=== PATIENT | female | born 1960 | race Caucasian/White ===

== ENCOUNTER → 2019-11-05 13:01 | Outpatient (CLI) | payer OTHER, SELFPAY ==
--- NOTE | 2019-11-05 13:05 | DI.MRI.S_ITS ---
PROCEDURE: MR LUMBAR SPINE WO CON INDICATIONS: low back pain worse TECHNIQUE: Noncontrast sagittal T1 spin echo and T2 fast echo, sagittal STIR, axial T1 and T2 fast spin echo through the lumbar spine. In cases with scoliosis, additional coronal T2 fast spin echo may be performed. COMPARISON: [facility], CR, XR LUMBAR SPINE MIN 4V, 11/05/2019, 13:37. [facility], CR, L-SPINE 2-3 VIEWS, 12/17/2017, 10:51. FINDINGS: Image quality: Excellent. Alignment and Curvature: There is transitional anatomy with 6 non-rib bearing vertebrae. There is normal bony alignment. Bone Marrow: Marrow is of normal overall signal. No acute vertebral body compression fractures. Spinal Cord: Conus medullaris terminates at the T12-L1 level. The 6th lumbar type vertebra is referred to as the umbilicus S1 in this report. Visualized cord demonstrates normal signal and size. Paraspinous Soft Tissues: No paravertebral masses. L1-L2: Normal appearance. L2-L3: Moderate loss of disc height and disc desiccation. There is diffuse posterior disc bulge. A small posterior central annular fissure is present. Mild bilateral facet arthropathy and hypertrophy of ligamentum flavum. The central canal is mildly narrowed. Mild bilateral foraminal stenosis. L3-L4: Preserved disc height and disc signal. There is mild posterior disc bulge and a small posterior central annular fissure. Mild bilateral facet arthropathy and hypertrophy of ligamentum flavum. The central canal is patent. No foraminal stenosis. L4-L5: Preserved disc height and disc signal. There is mild posterior disc bulge. Moderate bilateral facet arthropathy and hypertrophy of ligamentum flavum. The central canal is gtgc-cy-fyrhapvwdh narrowed. Mild bilateral foraminal stenosis. L5-S1: Preserved disc height and disc signal. There is posterior disc bulge and left posterior lateral disc protrusion. Mild bilateral facet arthropathy and hypertrophy of ligamentum flavum. Moderate narrowing of the left lateral recess. The central canal is qsde-dh-qxcyfwqocd narrowed. Mild bilateral foraminal stenosis. S1-S2: Prominent S1-S2 disc with disc desiccation. Epidural lipomatosis.No central canal stenosis or foraminal stenosis. IMPRESSION: 1. Multilevel degenerative disc disease and facet arthropathy as described. 2. Mild to moderate central canal stenosis L4-L5. 3. Mild foraminal stenosis at multiple levels. 4. 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 The most inferior lumbar vertebra is referred as sacralized S1 in this report. Please confirm vertebral levels prior to any surgery or interventional procedures. Dictated by: Russell Reyes M.D. on 11/05/2019 at 14:38 Approved by: Russell Reyes M.D. on 11/05/2019 at 17:08
--- NOTE | 2019-11-05 13:05 | DI.RAD.S_ITS ---
PROCEDURE: XR LUMBAR SPINE MIN 4V INDICATIONS: low back pain TECHNIQUE: 5 views of the lumbar spine were acquired. COMPARISON: X-ray, [place] spine, 12/17/2017. FINDINGS: Bones: 6 nonrib-bearing vertebrae are present. The most inferior lumbar type vertebra is referred as lumbarized transitional S1. There is normal bony alignment. No vertebral body compression fractures. No suspicious bony lesions. There is moderate degenerative disc disease at L2-L3 and mild degenerative disc disease at other levels. Moderate to severe facet arthropathy at L5-L5 and L5-S1. Soft tissues: Overlying bowel gas pattern is normal. No suspicious soft tissue calcifications. Oblique images: No pars defects. IMPRESSION: 1. Transitional anatomy with 6 wze-ddy-iurozjl lumbar vertebrae. 2. Degenerative disc and facet disease. Dictated by: Russell Reyes M.D. on 11/05/2019 at 16:56 Approved by: Russell Reyes M.D. on 11/05/2019 at 16:59
== END ==
PROVIDERS: PCP Nurse Practitioner Family; Visit Provider Nurse Practitioner Family
DX: M51.17 Intervertebral disc disorders with radiculopathy, lumbosacral region (principal); M51.16 Intervertebral disc disorders with radiculopathy, lumbar region; M48.07 Spinal stenosis, lumbosacral region; M48.061 Spinal stenosis, lumbar region without neurogenic claudication; M47.27 Other spondylosis with radiculopathy, lumbosacral region; M47.26 Other spondylosis with radiculopathy, lumbar region
CPT/HCPCS: 72110; 72148

== ENCOUNTER 2020-01-25 12:38 | Outpatient (CLI) | payer OTHER, SELFPAY ==
[2020-01-25] VITALS (9 sets, daily range): BP systolic 109–136; BP diastolic 52–81; PULSE 64–81; RESP 16; TEMP 36; O2SAT 98–100
--- NOTE | 2020-01-25 12:39 | DI.RAD.S_ITS ---
PROCEDURE: PAIN L/S TRANSFORAMINAL INJECT INDICATIONS: INTERVERTEBRAL DISC DISPLACEMENT FINDINGS: Fluoroscopic spot filming was performed to verify placement of spinal needles at the L4-L5 level(s), as labeled on the films. Appropriate location(s) of the needle tip(s) was confirmed by injection of iodinated contrast. Dictated by: John Houston M.D. on 01/25/2020 at 16:00 Approved by: John Houston M.D. on 01/25/2020 at 16:00
[2020-01-25] MEDS: MIDAZOLAM 5 MG/5 ML VIAL IV (13:48)
[2020-01-25] MEDS: fentaNYL 100 MCG/2 ML INJ 50 MCG IV (13:48)
[2020-01-25] MEDS: BUPIVACAINE 0.25% (PF) VIAL 2 ML INJ (13:55)
[2020-01-25] MEDS: BETAMETHASONE 30 MG/5 ML MDV 6 MG INJ (13:56)
[2020-01-25] MEDS: IOPAMIDOL 15 ML VIAL 3 ML INJ (13:56)
[2020-01-25] MEDS: DEXAMETHASONE 10 MG/ML VIAL 20 MG INJ (13:56)
--- NOTE | 2020-01-25 14:01 | P.PCN_ITS ---
Procedures Date/Time Date of procedure: 01/25/20 Time of procedure: 14:01 General Procedure description: PREOP DIAGNOSIS 1. FORMAINAL STENOSIS WITH LE SYMPTOMS POST OP DIAGNOSIS 1. FORMAINAL STENOSIS WITH LE SYMPTOMS PROCEDURES 1. FLUOROSCOPICALLY GUIDED CONTRAST CONTROLLED TRANSFORAMINAL EPIDURAL STEROID INJECTION - LEFT L4/5 PHYSICIAN: Bruce Mckeon DO INDICATIONS: Isabelle is referred by DAJUAN Nuñez for treatment of Foraminal Stenosis with Left LE Symptoms FINDINGS Foraminal Nerve Root Compression secondary to disc disease and facet hypertrophy DESCRIPTION OF PROCEDURE: Following review of allergy and review of potential side effects and complications, including, but not necessarily limited to, infection, allergic reaction, local tissue breakdown, stroke, temporary or permanent nerve injury, paralysis, and possible , the patient indicated that the patient understood and agreed to proceed. An informed consent document was signed by the patient, witnessed by a nurse, and placed in the patient's chart. Additionally, other treatment options including medications, modalities, and physical therapy were reviewed with the patient. After review of previous anaesthesic history and IV conscious sedation the patient was deemed safe to proceed with todays procedure with IV conscious sedation as ASA class II designation. Safety time-out was performed to confirm patient ID, procedure to be performed and site of procedure. IV sedation was accomplished with a combination of 2mg of Versed and 50mcg of Fentanyl administered by the RN after DO order, titrated to patient comfort during the course of the procedure while the patient remained responsive to all verbal commands In the prone position following sterile prep and drape of the lumbar region, the left L4/5 posterior neuroforamen was identified fluoroscopically. The skin was anesthetized via a 25-gauge 1.5-inch needle with 1% lidocaine solution. At this point, a 25-gauge 3.5-inch spinal needle was atraumatically introduced and advanced under fluoroscopic guidance through the posterior left L4/5 neuroforamen to approximately the anterior aspect of the canal. Depth was confirmed on lateral view. Following negative aspiration, injection of approximately 1.5 cc of Isovue 200 under live fluoroscopy in the AP view confirmed excellent flow along the nerve root, into the epidural space without vascular or intrathecal uptake observed Radiological data, including multiple fluoroscopic views of the lumbosacral spine, reveal a spinal needle at the left L4/5 posterior neuroforamen. Subsequent views show flow of contrast material flowing superiorly and inferiorly along the nerve root confirming epidural flow. Subsequently, a test dose of 1.5 cc of 1% lidocaine solution was administered and patient was observed for two minutes for signs or symptoms of complications, including abdominal pain, shortness of breath, bilateral upper or lower extremity weakness, nausea and vomiting, prior to steroid injection. At this point, a total of 3cc or 20mg of dexamethasone and 6mg of betamethasone was injected without incident. The procedure tolerated the procedure well without signs or symptoms of complications prior to transfer to the recovery area continued monitoring without incident. The patient was then transferred to the recovery area where they were observed for an appropriate time after the injection. The patient reported a VAS score of 7 prior to the procedure and a post- procedure VAS of 0. Total Fluoroscopy Time: 8 seconds Total Conscious Sedation Time: 24min POST OP INSTRUCTIONS The patient was provided a Pain Log to continue to record their response to the target-specific procedure prior to follow-up visit with their referring physician. Additionally, specific post-injection care instructions and a contact number to our office were provided if concerns arise regarding possible complications associated with the procedure are suspected. Bruce Mckeon DO Complications: none
--- NOTE | 2020-01-25 14:07 | PC.NURSE ---
1408: Received patient post procedure by Maggy WOODY, assisted from WC to chair. Awake, alert, and pleasant. VSS upon arrival.
--- NOTE | 2020-01-26 12:03 | PC.NURSE ---
FOLLOW UP CALL MADE. PT C/O HEADACHE LATE LAST NIGHT THAT GOT WORSE UPON LYING DOWN AND GETS BETTER WHEN SHE STANDS UP. LET PT KNOW I WILL PASS SIDE EFFECT EXPERIENCE ON TO DR REYES. SHE DENIES OTHER QUESTIONS CONCERNS.
== END 2020-01-25 14:25 | disposition home or self-care (01) ==
PROVIDERS: PCP Nurse Practitioner Family; Referring Provider Physical Medicine & Rehabilitation; Visit Provider Physical Medicine & Rehabilitation
DX: M48.061 Spinal stenosis, lumbar region without neurogenic claudication (principal); M51.16 Intervertebral disc disorders with radiculopathy, lumbar region
CPT/HCPCS: 64483; 99152; J0702; J1100; J2250; J3010

== ENCOUNTER → 2021-01-13 08:32 | Outpatient (CLI) | payer OTHER, SELFPAY ==
[2021-01-13 09:15] LABS: Hematocrit 47.6 % (36-46); Hemoglobin 15.7 g/dL (12.0-16.0); Mean Corpuscular Hemoglobin 30.1 PG (26-34); Mean Corpuscular Volume 91.2 fL (80-100); Platelet Count 313 X10^3/uL (150-400); Red Blood Cell Count 5.22 X10^6/uL (4.0-5.2); White Blood Cell Count 6.1 X10^3/uL (4.5-11.0)
[2021-01-13 09:36] LABS: Hemoglobin A1C% w Est Avg Glu 5.4 % (4.0-6.0)
[2021-01-13 09:41] LABS: Alanine Aminotransferase 21 IU/L (<35); Albumin 4.1 g/dL (3.5-5.0); Albumin Globulin Ratio 1.3 (1.0-2.8); Alkaline Phosphatase 94 U/L (38-126); Aspartate Aminotransferase 27 IU/L (14-36); BUN Creatinine Ratio 26.4 (6-22); Bilirubin Total 0.4 mg/dL (0.2-1.3); Blood Urea Nitrogen 19 mg/dL (7-17); Calcium 9.6 mg/dL (8.4-10.2); Carbon Dioxide 29 mmol/L (22-32); Chloride 106 mmol/L (98-107); Cholesterol 203 mg/dL (140-199); Estimated Glomerular Filt Rate > 60.0 mL/min (>60); Globulin 3.1 g/dL (1.7-4.1); Glucose 93 mg/dL (80-110); HDL Cholesterol 57 mg/dL (40-60); HEMOLYSIS < 15 (0-50); LDL Cholesterol Calculated 128 mg/dL (<100); Magnesium 2.1 mg/dL (1.6-2.3); Potassium 3.9 mmol/L (3.4-5.1); Sodium 139 mmol/L (137-145); Total Protein 7.2 g/dL (6.3-8.2); Triglycerides 92 mg/dL (35-150)
[2021-01-13 09:58] LABS: Free T4, Direct Thyroxine 1.08 ng/dL (0.78-2.19)
[2021-01-13 09:59] LABS: Vitamin D 25 Hydroxy (D3) 37.7 ng/mL (30.0-100.0)
[2021-01-13 10:12] LABS: Thyroid Stimulating Hormone 2.18 uIU/mL (0.47-4.68)
== END ==
PROVIDERS: PCP Nurse Practitioner Family; Referring Provider Nurse Practitioner Family; Visit Provider Nurse Practitioner Family
DX: E03.8 Other specified hypothyroidism (principal); E11.9 Type 2 diabetes mellitus without complications; R53.83 Other fatigue; E03.9 Hypothyroidism, unspecified; E55.9 Vitamin D deficiency, unspecified; E06.3 Autoimmune thyroiditis
CPT/HCPCS: 36415; 80053; 80061; 82306; 83036; 83735; 84439; 84443; 85027

== ENCOUNTER 2021-10-29 04:47 | Inpatient (IN) | payer OTHER, SELFPAY ==
[2021-10-29] VITALS (15 sets, daily range): BP systolic 109–155; BP diastolic 58–77; PULSE 67–103; RESP 16–18; TEMP 36.1–37.3; O2SAT 92–98
--- NOTE | 2021-10-29 05:07 | ED_ITS ---
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 She states for the past year she has been having episodes of diarrhea that are profuse watery diarrhea with food rapidly transiting sometimes with in 30 min utes of eating. This has been intermittently problematic over the last year with occasional blood noted in the stool. She does note that she is ?a celiac?, she has not had a recent colonoscopy. Over the last 3 days she has had increasing lower abdominal pain. Both lower quadrants not associated with flank pain, dysuria or vaginal discharge. She has no fevers, cough, chest pain, dyspnea. She describes painful bowel movements but stool that is soft but formed. She states that it is difficult to stand up straight because of the significant lower abdominal pain. Related Data Home Medications Medication Instructions Recorded Confirmed [probiotic] #0 08/20/17 01/12/21 cholecalciferol (vitamin D3) 50 2,000 unit PO DAILY #0 08/20/17 10/29/21 mcg (2,000 unit) capsule (Vitamin D3) multivitamin (Multiple Vitamins) 1 tab PO QDAY #0 08/20/17 10/29/21 selenomethionine 200 mcg tablet 200 mcg PO PRN #0 09/25/19 01/12/21 vitamin K2 100 mcg capsule 100 mcg PO DAILY 01/12/21 10/29/21 doxycycline monohydrate 40 mg 40 mg PO DAILY 10/29/21 10/29/21 capsule,immediate - delay release (Oracea) Previous Rx's Medication Instructions Recorded celecoxib 200 mg capsule See Rx Instructions .ROUTE 09/06/21 .COMPLEX #30 cap Allergies Allergy/AdvReac Type Severity Reaction Status Date / Time ciprofloxacin [CIPROFLOXACIN] Allergy Unknown Verified 10/29/21 05:00 levofloxacin [From LEVAQUIN] Allergy Unknown Verified 10/29/21 05:00 Review of Systems <Yina Conklin MD - Last Filed: 10/29/21 18:04> Review of Systems Narrative: Remainder of complete review of systems is otherwise unremarkable except for that included in the HPI. Patient History <Yina Conklin MD - Last Filed: 10/29/21 18:04> Medical History Anhidrosis BMI 31.0-31.9,adult Chronic fatigue Mikayla-Read infection Facet arthropathy, lumbar Fatigue Mihaela's disease Hemorrhoids Herniated nucleus pulposus, L4-5 Raynaud phenomenon Reactive hypoglycemia Vitamin D deficiency Surgical History Status post cholecystectomy Status post parathyroidectomy Family History Brother Age: 67 Arthritis of knee Essential hypertension High cholesterol Father Stomach cancer Heart disease Essential hypertension High cholesterol Kidney problem Grandfather Heart disease Essential hypertension Stroke Mother Heart disease Essential hypertension High cholesterol Grandfather Heart disease Essential hypertension Grandmother Heart disease Essential hypertension Stroke Social History household members: spouse Smoking Status: Never smoker alcohol intake: never Smoking Status: Never smoker Substance Use Type: does not use Exam <Yina Conklin MD - Last Filed: 10/29/21 18:04> Narrative Exam Narrative: General: Healthy appearing, in no acute distress. Able to give a complete and coherent history. Well-nourished well-developed HEENT: Moist mucous membranes, normal sclera with reactive pupils, Neck: No JVD, supple Respiratory: Lungs are clear to auscultation, no wheezing no rales no rhonchi. Full and symmetrical air movement Cardiac: Regular rate and rhythm no murmurs no bruits Abdomen: Soft, tender in lower quadrants with guarding, hypoactive bowel tones Skin: Warm and dry, no rashes Neurologic: Grossly neurologically intact with no obvious asymmetries or abnormalities Extremities: No trauma, well perfused Psych: Cooperative, appropriate insight and affect Initial Vital Signs Initial Vital Signs: Vital Signs Pulse Rate 102 H 10/29/21 05:00 Respiratory Rate 18 12/12/21 05:00 Blood Pressure 118/65 10/29/21 05:00 Pulse Oximetry 94 10/29/21 05:00 <Bruce Gray MD - Last Filed: 10/29/21 09:42> Initial Vital Signs Initial Vital Signs: Vital Signs Pulse Rate 102 H 10/29/21 05:00 Respiratory Rate 18 10/29/21 05:00 Blood Pressure 118/65 10/29/21 05:00 Pulse Oximetry 94 10/29/21 05:00 Course <Yina Conklin MD - Last Filed: 10/29/21 18:04> Orders Ordered: Acetaminophen (Acetaminophen 325 Mg Tablet) 650 mg PO Q6HR [facility] Last Admin: 10/29/21 11:42 Dose: 650 mg Documented by: MEHUL Dextrose (Dextrose 50 % In Water 25 Gm/50 Ml Syringe) 25 gm IV PRN PRN; Protocol PRN Reason: Hypoglycemia Docusate Sodium (Docusate 100 Mg Capsule) 100 mg PO BID [facility] Last Admin: 10/29/21 11:42 Dose: 100 mg Documented by: MEHUL Enoxaparin Sodium (Enoxaparin 40 Mg/0.4 Ml Syringe) 40 mg SUBCUT DAILY [facility] Last Admin: 10/29/21 11:44 Dose: 40 mg Documented by: MEHUL Famotidine (Famotidine 20 Mg Tablet) 20 mg PO BEDTIME [facility] Hydromorphone HCl (Hydromorphone 0.5 Mg Inj) 0.5 mg IV Q3H PRN PRN Reason: Pain, Moderate (4-6) Sodium Chloride (Normal Saline 0.9%) 1,000 mls @ 250 mls/hr IV CONT [facility] Last Infusion: 10/29/21 09:49 Dose: 0 mls/hr Documented by: Admin: 10/29/21 09:30 Dose: 250 mls/hr Documented by: KBROWNE Sodium Chloride (Normal Saline 0.9%) 1,000 mls @ 100 mls/hr IV CONT [facility] Last Admin: 10/29/21 10:00 Dose: 100 mls/hr Documented by: MEHUL Piperacillin Sod/Tazobactam (Sod 3.375 gm/ Sodium Chloride) 100 mls @ 25 mls/hr IV Q8H [facility] Last Admin: 10/29/21 11:44 Dose: 25 mls/hr Documented by: MEHUL Ibuprofen (Ibuprofen 600 Mg Tablet) 600 mg PO Q6HR [facility] Last Admin: 10/29/21 11:42 Dose: 600 mg Documented by: MEHUL Insulin Human Lispro (Insulin Lispro 100 Unit/Ml 3ml Vial) 0 unit SUBCUT Q6H [facility]; Protocol Last Admin: 10/29/21 14:19 Dose: Not Given Documented by: Admin: 10/29/21 10:59 Dose: Not Given Documented by: MEHUL Morphine Sulfate (Morphine 2 Mg/Ml Inj) 2 mg IV Q4HR PRN PRN Reason: Pain, Moderate (4-6) Multivitamins (Multivitamin 1 Tablet) 1 tab PO DAILY [facility] Last Admin: 10/29/21 11:42 Dose: 1 tab Documented by: MEHUL Naloxone HCl (Naloxone 0.4 Mg/Ml Vial) 0.2 mg IV Q2MIN PRN PRN Reason: Opiate Reversal Ondansetron HCl (Ondansetron 4 Mg/2 Ml Inj) 4 mg IV Q6HR PRN PRN Reason: Nausea And Vomiting Oxycodone HCl (Oxycodone Ir 5 Mg Tablet) 5 mg PO Q3HR PRN PRN Reason: Pain, Moderate (4-6) Discontinued Medications Enoxaparin Sodium (Enoxaparin 30 Mg/0.3 Ml Syringe) 30 mg SUBCUT DAILY [facility] Last Admin: 10/29/21 10:58 Dose: Not Given Documented by: MEHUL Hydromorphone HCl (Hydromorphone 0.5 Mg Inj) 0.5 mg IV Q15MIN PRN PRN Reason: Pain, Last Admin: 10/29/21 09:28 Dose: 0.5 mg Documented by: Admin: 10/29/21 05:29 Dose: 0.5 mg Documented by: YONI Sodium Chloride (Normal Saline 0.9%) 1,000 mls @ 1,000 mls/hr IV BOLUS ONE Stop: 10/29/21 06:14 Last Infusion: 10/29/21 06:34 Dose: 0 mls/hr Documented by: Admin: 10/29/21 05:29 Dose: 1,000 mls/hr Documented by: YONI Piperacillin Sod/Tazobactam (Sod 4.5 gm/ Sodium Chloride) 100 mls @ 200 mls/hr IV NOW ONE Stop: 10/29/21 06:09 Last Infusion: 10/29/21 08:09 Dose: 0 mls/hr Documented by: Admin: 10/29/21 06:43 Dose: 200 mls/hr Documented by: YONI Piperacillin Sod/Tazobactam (Sod 4.5 gm/ Sodium Chloride) 100 mls @ 25 mls/hr IV Q8H [facility] Last Admin: 10/29/21 10:58 Dose: Not Given Documented by: MEHUL Piperacillin Sod/Tazobactam (Sod 3.375 gm/ Sodium Chloride) 100 mls @ 25 mls/hr IV Q8H [facility] Last Admin: 10/29/21 10:58 Dose: Not Given Documented by: MEHUL Ondansetron HCl (Ondansetron 4 Mg/2 Ml Inj) 4 mg IV NOW ONE Stop: 10/29/21 05:16 Last Admin: 10/29/21 05:29 Dose: 4 mg Documented by: YONI Ondansetron HCl (Ondansetron 4 Mg/2 Ml Inj) 4 mg IV Q6HR [facility] Zinc Sulfate (Zinc Sulfate 220 Mg Capsule) 50 mg PO DAILY [facility] Vital Signs Vital signs: Vital Signs - 8 hr 10/29/21 05:00 10/29/21 06:05 10/29/21 06:06 Pulse Rate 102 H 95 H 93 H Respiratory Rate 18 Blood Pressure 118/65 117/61 Pulse Oximetry 94 92 93 10/29/21 06:30 Pulse Rate 93 H Respiratory Rate Blood Pressure 120/67 Pulse Oximetry 95 <Bruce Gray MD - Last Filed: 10/29/21 09:42> Course Course Narrative: Care was transitioned from Dr. Conklin at change of shift. The patient has a prior history of diverticulitis, the initial episode was approximately 10 years ago. She has had recurring GI discomfort, but no obvious significant exacerbations of diverticulitis until now. pain has significantly increased abdominal pain over the last 3 days. Over this time she has consumed sips of soup, but oral intake is greatly diminished. She has not been having bowel movements. She presents now with a very tender lower abdomen. CT report is now available, confirming diverticulitis with perforation. She is receiving IV fluids. She is receiving Zosyn. While lying still she has no pain, but on exam she has tenderness with guarding and rebound across the lower abdomen. She has no bowel sounds. She has not been having fever or chills. She has no cardio respiratory complaints. COVID-19 testing is negative. I discussed the case with surgery, Dr. Fletcher. The patient will be admitted to her service. Tien GALINDO 10/29/21@0750. Orders Ordered: Acetaminophen (Acetaminophen 325 Mg Tablet) 650 mg PO Q6HR [facility] Last Admin: 10/29/21 11:42 Dose: 650 mg Documented by: MEHUL Dextrose (Dextrose 50 % In Water 25 Gm/50 Ml Syringe) 25 gm IV PRN PRN; Protocol PRN Reason: Hypoglycemia Docusate Sodium (Docusate 100 Mg Capsule) 100 mg PO BID [facility] Last Admin: 10/29/21 11:42 Dose: 100 mg Documented by: MEHUL Enoxaparin Sodium (Enoxaparin 40 Mg/0.4 Ml Syringe) 40 mg SUBCUT DAILY [facility] Last Admin: 10/29/21 11:44 Dose: 40 mg Documented by: MEHUL Famotidine (Famotidine 20 Mg Tablet) 20 mg PO BEDTIME [facility] Hydromorphone HCl (Hydromorphone 0.5 Mg Inj) 0.5 mg IV Q3H PRN PRN Reason: Pain, Moderate (4-6) Sodium Chloride (Normal Saline 0.9%) 1,000 mls @ 250 mls/hr IV CONT [facility] Last Infusion: 10/29/21 09:49 Dose: 0 mls/hr Documented by: Admin: 10/29/21 09:30 Dose: 250 mls/hr Documented by: KBRPAT Sodium Chloride (Normal Saline 0.9%) 1,000 mls @ 100 mls/hr IV CONT [facility] Last Admin: 10/29/21 10:00 Dose: 100 mls/hr Documented by: MEHUL Piperacillin Sod/Tazobactam (Sod 3.375 gm/ Sodium Chloride) 100 mls @ 25 mls/hr IV Q8H [facility] Last Admin: 10/29/21 11:44 Dose: 25 mls/hr Documented by: MEHUL Ibuprofen (Ibuprofen 600 Mg Tablet) 600 mg PO Q6HR [facility] Last Admin: 10/29/21 11:42 Dose: 600 mg Documented by: MEHUL Insulin Human Lispro (Insulin Lispro 100 Unit/Ml 3ml Vial) 0 unit SUBCUT Q6H [facility]; Protocol Last Admin: 10/29/21 14:19 Dose: Not Given Documented by: Admin: 10/29/21 10:59 Dose: Not Given Documented by: MEHUL Morphine Sulfate (Morphine 2 Mg/Ml Inj) 2 mg IV Q4HR PRN PRN Reason: Pain, Moderate (4-6) Multivitamins (Multivitamin 1 Tablet) 1 tab PO DAILY [facility] Last Admin: 10/29/21 11:42 Dose: 1 tab Documented by: MEHUL Naloxone HCl (Naloxone 0.4 Mg/Ml Vial) 0.2 mg IV Q2MIN PRN PRN Reason: Opiate Reversal Ondansetron HCl (Ondansetron 4 Mg/2 Ml Inj) 4 mg IV Q6HR PRN PRN Reason: Nausea And Vomiting Oxycodone HCl (Oxycodone Ir 5 Mg Tablet) 5 mg PO Q3HR PRN PRN Reason: Pain, Moderate (4-6) Discontinued Medications Enoxaparin Sodium (Enoxaparin 30 Mg/0.3 Ml Syringe) 30 mg SUBCUT DAILY [facility] Last Admin: 10/29/21 10:58 Dose: Not Given Documented by: MEHUL Hydromorphone HCl (Hydromorphone 0.5 Mg Inj) 0.5 mg IV Q15MIN PRN PRN Reason: Pain, Last Admin: 10/29/21 09:28 Dose: 0.5 mg Documented by: Admin: 10/29/21 05:29 Dose: 0.5 mg Documented by: YONI Sodium Chloride (Normal Saline 0.9%) 1,000 mls @ 1,000 mls/hr IV BOLUS ONE Stop: 10/29/21 06:14 Last Infusion: 10/29/21 06:34 Dose: 0 mls/hr Documented by: Admin: 10/29/21 05:29 Dose: 1,000 mls/hr Documented by: YONI Piperacillin Sod/Tazobactam (Sod 4.5 gm/ Sodium Chloride) 100 mls @ 200 mls/hr IV NOW ONE Stop: 10/29/21 06:09 Last Infusion: 10/29/21 08:09 Dose: 0 mls/hr Documented by: Admin: 10/29/21 06:43 Dose: 200 mls/hr Documented by: YONI Piperacillin Sod/Tazobactam (Sod 4.5 gm/ Sodium Chloride) 100 mls @ 25 mls/hr IV Q8H [facility] Last Admin: 10/29/21 10:58 Dose: Not Given Documented by: MEHUL Piperacillin Sod/Tazobactam (Sod 3.375 gm/ Sodium Chloride) 100 mls @ 25 mls/hr IV Q8H [facility] Last Admin: 10/29/21 10:58 Dose: Not Given Documented by: MEHUL Ondansetron HCl (Ondansetron 4 Mg/2 Ml Inj) 4 mg IV NOW ONE Stop: 10/29/21 05:16 Last Admin: 10/29/21 05:29 Dose: 4 mg Documented by: YONI Ondansetron HCl (Ondansetron 4 Mg/2 Ml Inj) 4 mg IV Q6HR [facility] Zinc Sulfate (Zinc Sulfate 220 Mg Capsule) 50 mg PO DAILY [facility] Vital Signs Vital signs: Vital Signs - 8 hr 10/29/21 05:00 10/29/21 06:05 10/29/21 06:06 Pulse Rate 102 H 95 H 93 H Respiratory Rate 18 Blood Pressure 118/65 117/61 Pulse Oximetry 94 92 93 10/29/21 06:30 Pulse Rate 93 H Respiratory Rate Blood Pressure 120/67 Pulse Oximetry 95 Medical Decision Making <Yina Conklin MD - Last Filed: 10/29/21 18:04> Lab Data Result diagrams: 10/29/21 05:15 10/29/21 05:15 Labs: Lab Results 10/29/21 10/29/21 10/29/21 Range/Units 05:15 05:15 06:40 WBC 15.8 H (4.5-11.0) X10^3/uL RBC 4.87 (4.0-5.2) X10^6/uL Hgb 14.8 (12.0-16.0) g/dL Hct 43.8 (36-46) % MCV 89.9 (80-100) fL MCH 30.3 (26-34) PG MCHC 33.7 (30-36) % RDW 14.6 (11.6-14.8) % Plt Count 267 (150-400) X10^3/uL Neut % (Auto) 90.5 H (50-75) % Lymph % (Auto) 3.3 L (25-40) % Hamilton % (Auto) 5.8 (3-14) % Eos % (Auto) 0.1 L (2-4) % Baso % (Auto) 0.3 (0-2) % Neut # (Auto) 60480 H (4646-5114) /uL Lymph # (Auto) 500 L (4514-7709) /uL Hamilton # (Auto) 900 (0-900) /uL Eos # (Auto) 0 (0-450) /uL Baso # (Auto) 0 (0-100) /uL Sodium 134 L (137-145) mmol/L Potassium 5.1 (3.4-5.1) mmol/L Chloride 104 (98-107) mmol/L Carbon Dioxide 21 L (22-32) mmol/L BUN 17 (7-17) mg/dL Creatinine 0.74 (0.52-1.04) mg/dL Estimated GFR > 60.0 (>60) mL/min BUN/Creatinine Ratio 23.0 H (6-22) Glucose 148 H (80-110) mg/dL Calcium 9.4 (8.4-10.2) mg/dL Magnesium 2.0 (1.6-2.3) mg/dL Total Bilirubin 1.6 H (0.2-1.3) mg/dL AST 48 H (14-36) IU/L ALT 30 (<35) IU/L Alkaline Phosphatase 102 (38-126) U/L Total Protein 7.5 (6.3-8.2) g/dL Albumin 4.0 (3.5-5.0) g/dL Globulin 3.5 (1.7-4.1) g/dL Albumin/Globulin Ratio 1.1 (1.0-2.8) Lipase 34 (23-300) U/L SARS-CoV-2 (PCR) Positive H (Negative) <Bruce Gray MD - Last Filed: 10/29/21 09:42> Lab Data Labs: Lab Results 10/29/21 10/29/21 10/29/21 Range/Units 05:15 05:15 06:40 WBC 15.8 H (4.5-11.0) X10^3/uL RBC 4.87 (4.0-5.2) X10^6/uL Hgb 14.8 (12.0-16.0) g/dL Hct 43.8 (36-46) % MCV 89.9 (80-100) fL MCH 30.3 (26-34) PG MCHC 33.7 (30-36) % RDW 14.6 (11.6-14.8) % Plt Count 267 (150-400) X10^3/uL Neut % (Auto) 90.5 H (50-75) % Lymph % (Auto) 3.3 L (25-40) % Hamilton % (Auto) 5.8 (3-14) % Eos % (Auto) 0.1 L (2-4) % Baso % (Auto) 0.3 (0-2) % Neut # (Auto) 90589 H (1585-2246) /uL Lymph # (Auto) 500 L (1562-7109) /uL Hamilton # (Auto) 900 (0-900) /uL Eos # (Auto) 0 (0-450) /uL Baso # (Auto) 0 (0-100) /uL Sodium 134 L (137-145) mmol/L Potassium 5.1 (3.4-5.1) mmol/L Chloride 104 (98-107) mmol/L Carbon Dioxide 21 L (22-32) mmol/L BUN 17 (7-17) mg/dL Creatinine 0.74 (0.52-1.04) mg/dL Estimated GFR > 60.0 (>60) mL/min BUN/Creatinine Ratio 23.0 H (6-22) Glucose 148 H (80-110) mg/dL Calcium 9.4 (8.4-10.2) mg/dL Magnesium 2.0 (1.6-2.3) mg/dL Total Bilirubin 1.6 H (0.2-1.3) mg/dL AST 48 H (14-36) IU/L ALT 30 (<35) IU/L Alkaline Phosphatase 102 (38-126) U/L Total Protein 7.5 (6.3-8.2) g/dL Albumin 4.0 (3.5-5.0) g/dL Globulin 3.5 (1.7-4.1) g/dL Albumin/Globulin Ratio 1.1 (1.0-2.8) Lipase 34 (23-300) U/L SARS-CoV-2 (PCR) Positive H (Negative) Imaging Data CT scan - abdomen/pelvis: Radiologist's Impression: Radiology report has been reviewed. The patient has perforated diverticulitis. <Bruce Gray MD - Last Filed: 10/29/21 09:42> Critical Care Time Critical Care Time: Yes Total Critical Care Time: 50 Attestation: Time included the patient's initial assessment with Dr. Dee. I have re- evaluated the patient. Lab in radiology data has been evaluated. Clinical management is ongoing. The white clinical findings were discussed with the patient. A consult with the admitting surgeon. 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
--- NOTE | 2021-10-29 05:16 | DI.CT.S_ITS ---
PROCEDURE: CT ABDOMEN PELVIS W CON INDICATIONS: low abdominal pain TECHNIQUE: After the administration of intravenous contrast, axial sections acquired from the lung bases to the pubic symphysis. Coronal and sagittal reformats were performed. For radiation dose reduction, the following was used: automated exposure control, adjustment of mA and/or kV according to patient size. COMPARISON: None. FINDINGS: Image quality: Excellent. Lung bases: There are 2 adjacent left lung base nodules largest of which measures 10 mm diameter. Heart: Small pericardial effusion. ABDOMEN: Liver: Unremarkable. Gallbladder: Is surgically absent Biliary ducts: Unremarkable. Pancreas: Unremarkable. Spleen: Multiple calcifications within the spleen are present. Adrenal Glands: Unremarkable. Kidneys and Ureters: Unremarkable. Stomach and Bowel: Stomach and small bowel grossly unremarkable. Moderate diffuse colonic dilatation. Moderate diffuse colonic stool. Moderate thickening of the distal sigmoid colon within the right pelvis. Moderate thickening of the rectum. Peritoneum: Moderate pneumoperitoneum, predominantly within the pelvis, surrounding the sigmoid colon. Moderate retroperitoneal free air extending superiorly into the abdomen. Ventral Wall: No hernias. Abdominal Nodes: No retroperitoneal or mesenteric adenopathy by size criteria. Vessels: Aorta and inferior vena cava are normal in size. PELVIS: Pelvic Organs: Uterine fibroids are present. Bladder: Unremarkable. Pelvic Nodes: No enlarged lymph nodes. Miscellaneous: No hernias are seen. Bones: Unremarkable. IMPRESSION: 1. Perforation of the sigmoid colon with associated intraperitoneal and retroperitoneal air. 2. Thickening of the sigmoid colon, suggestive of infection, inflammation, or neoplasm. 3. Uterine fibroids. 4. Small pericardial effusion. 5. Indeterminate left lung base nodules. 6. Concordant with preliminary interpretation. Dictated by: Delmy Seymour M.D. on 10/29/2021 at 7:26 Approved by: Delmy Seymour M.D. on 10/29/2021 at 7:30
[2021-10-29] MEDS: ONDANSETRON 4 MG/2 ML INJ IV (05:29)
[2021-10-29] MEDS: HYDROMORPHONE 0.5 MG INJ IV ×2 (05:29→09:28)
[2021-10-29] MEDS: SODIUM CHLORIDE 0.9% 1,000 ML 1000 ML IV (05:29)
[2021-10-29 05:31] LABS: Add Manual Diff / Slide Review NO; Basophils Absolute Auto 0 /uL (0-100); Basophils Percent Auto 0.3 % (0-2); Eosinophils Absolute Auto 0 /uL (0-450); Eosinophils Percent Auto 0.1 % (2-4); Hematocrit 43.8 % (36-46); Hemoglobin 14.8 g/dL (12.0-16.0); Lymphocytes Absolute Auto 500 /uL (1100-4500); Lymphocytes Percent Auto 3.3 % (25-40); Mean Corpuscular HGB Conc 33.7 % (30-36); Mean Corpuscular Hemoglobin 30.3 PG (26-34); Mean Corpuscular Volume 89.9 fL (80-100); Monocytes Absolute Auto 900 /uL (0-900); Monocytes Percent Auto 5.8 % (3-14); Neutrophils Absolute Auto 14300 /uL (1500-7000); Neutrophils Percent Auto 90.5 % (50-75); Platelet Count 267 X10^3/uL (150-400); Red Blood Cell Count 4.87 X10^6/uL (4.0-5.2); Red Cell Distribution Width 14.6 % (11.6-14.8); White Blood Cell Count 15.8 X10^3/uL (4.5-11.0)
[2021-10-29 05:35] LABS: Alanine Aminotransferase 30 IU/L (<35); Albumin Globulin Ratio 1.1 (1.0-2.8); Alkaline Phosphatase 102 U/L (38-126); Aspartate Aminotransferase 48 IU/L (14-36); Bilirubin Total 1.6 mg/dL (0.2-1.3); Blood Urea Nitrogen 17 mg/dL (7-17); Calcium 9.4 mg/dL (8.4-10.2); Carbon Dioxide 21 mmol/L (22-32); Chloride 104 mmol/L (98-107); Estimated Glomerular Filt Rate > 60.0 mL/min (>60); Globulin 3.5 g/dL (1.7-4.1); Glucose 148 mg/dL (80-110); Lipase 34 U/L (23-300); Sodium 134 mmol/L (137-145); Total Protein 7.5 g/dL (6.3-8.2)
[2021-10-29 05:36] LABS: HEMOLYSIS 165 (0-50)
[2021-10-29 05:37] LABS: Potassium 5.1 mmol/L (3.4-5.1)
[2021-10-29] MEDS: PIPERACILLIN/TAZO 4.5 GM in SODIUM CHLORIDE 0.9% 100 ML 200 ML IV (06:43)
[2021-10-29 08:05] LABS: COVID19 - ADMIT (NP swab/PCR) POSITIVE (Negative)
--- NOTE | 2021-10-29 08:08 | DI.RAD.S_ITS ---
PROCEDURE: XR CHEST 1V INDICATIONS: COVID-19 positive. TECHNIQUE: One view of the chest was acquired. COMPARISON: None. FINDINGS: Surgical changes and devices: None. Lungs and pleura: Lungs are clear. No pleural effusions or pneumothorax. Mediastinum: Mediastinal contours appear normal. Heart size is normal. Bones and chest wall: No suspicious bony lesions. Overlying soft tissues appear unremarkable. IMPRESSION: No acute process. Dictated by: Delmy Seymour M.D. on 10/29/2021 at 7:34 Approved by: Delmy Seymour M.D. on 10/29/2021 at 7:34
[2021-10-29] MEDS: SODIUM CHLORIDE 0.9% 1,000 ML 250 ML IV (09:30)
[2021-10-29] MEDS: SODIUM CHLORIDE 0.9% 1,000 ML 100 ML IV ×2 (10:00→19:49)
--- NOTE | 2021-10-29 11:24 | P.HP_ITS ---
History of Present Illness History of Present Illness Date Patient Seen: 10/29/21 Time Patient Seen: 11:25 Date of Onset of Symptoms: 10/19/21 Chief complaint: lower abdominal pain, bloody stool Narrative: Three days of abdominal pain in association with chronic intermittent abdominal pain and diarrhea. H/o diverticulitis several years ago, and recent recovery from COVID. CT scan that I reviewed personally, shows perforated diverticulitis with impressive retroparitoneal gas, no abscess identified. Pain has been lower abdominal for 3 days with progressive worsening. Left side most painful. Movement is painful, better when lying still. Intermittent diarrhea. No emesis. Acquired inability to sweat that she relates to Ciprofloxin and Flagyl. No previous colonoscopy Patient History Medical History Anhidrosis BMI 31.0-31.9,adult Chronic fatigue Mikayla-Read infection Facet arthropathy, lumbar Fatigue Mihaela's disease Hemorrhoids Herniated nucleus pulposus, L4-5 Raynaud phenomenon Reactive hypoglycemia Vitamin D deficiency Surgical History Status post cholecystectomy Status post parathyroidectomy Family & Social History Family History Brother Age: 67 Arthritis of knee Essential hypertension High cholesterol Father Stomach cancer Heart disease Essential hypertension High cholesterol Kidney problem Grandfather Heart disease Essential hypertension Stroke Mother Heart disease Essential hypertension High cholesterol Grandfather Heart disease Essential hypertension Grandmother Heart disease Essential hypertension Stroke Social History: household members spouse Prior Living Arrangements House Safety & Behavioral: Feels Safe in Current Yes Environment Been Physically Hurt or No Threatened By a Person Suicidal Ideation Description None Suicide Plan Description No Plan Tobacco & Substance use: Smoking Status Never smoker alcohol intake never Substance Use Type does not use Meds Home Medications and Allergies Home Medications Medication Instructions Recorded Confirmed Type [probiotic] #0 08/20/17 01/12/21 History cholecalciferol (vitamin D3) 50 2,000 unit PO DAILY #0 08/20/17 10/29/21 History mcg (2,000 unit) capsule (Vitamin D3) multivitamin (Multiple Vitamins) 1 tab PO QDAY #0 08/20/17 10/29/21 History selenomethionine 200 mcg tablet 200 mcg PO PRN #0 09/25/19 01/12/21 History vitamin K2 100 mcg capsule 100 mcg PO DAILY 01/12/21 10/29/21 History celecoxib 200 mg capsule See Rx Instructions .ROUTE 09/06/21 10/29/21 Rx .COMPLEX #30 cap doxycycline monohydrate 40 mg 40 mg PO DAILY 10/29/21 10/29/21 History capsule,immediate - delay release (Oracea) Allergies Allergy/AdvReac Type Severity Reaction Status Date / Time ciprofloxacin [CIPROFLOXACIN] Allergy Unknown Verified 10/29/21 05:00 levofloxacin [From LEVAQUIN] Allergy Unknown Verified 10/29/21 05:00 Review of Systems Review of Systems ROS: Yes All systems reviewed with the patient and are negative except as otherwise documented Exam Vital Signs (past 8 hours): - 10/29/21 05:00 10/29/21 06:05 10/29/21 06:06 Temperature Pulse Rate 102 H 95 H 93 H Respiratory Rate 18 Blood Pressure 118/65 117/61 Pulse Oximetry 94 92 93 10/29/21 06:30 10/29/21 07:00 10/29/21 07:30 Temperature Pulse Rate 93 H 94 H 94 H Respiratory Rate Blood Pressure 120/67 117/67 116/68 Pulse Oximetry 95 95 94 10/29/21 08:00 10/29/21 08:28 10/29/21 08:30 Temperature Pulse Rate 97 H 100 H 103 H Respiratory Rate Blood Pressure 125/71 121/67 119/65 Pulse Oximetry 98 98 98 10/29/21 09:00 10/29/21 10:44 Temperature 98.9 F Pulse Rate 96 H 96 H Respiratory Rate 16 Blood Pressure 115/58 L 155/77 H Pulse Oximetry 97 97 Oxygen Delivery Method Room Air Oxygen Flow Rate 0 Const General: cooperative and other (guarded in positioning) Nutritional Appearance: average body habitus Orientation: alert [facility] Head: normocephalic and atraumatic Ears: hearing grossly normal bilaterally Face and sinus: normal facial exam Eyes Sclera: sclerae normal Neck Neck: trachea midline Chest Chest: normal inspection of the chest Resp Effort & Inspection: normal respiratory effort and able to speak in complete sentences Cardio Rate: tachycardic Rhythm: regular rhythm GI Palpation: soft Other: tenderness in lower abdomen with left greater than right. Skin General: no rashes or lesions noted and dry skin Neuro General: patient alert and patient oriented x3 Cranial Nerves: hearing normal Cognition: normal cognition Extrem General: full ROM Psych Appearance: grossly normal Affect: normal affect Judgment: judgment good Objective Labs Result Diagrams: 10/29/21 05:15 10/29/21 05:15 Labs: Laboratory Results - last 24 hr 10/29/21 10/29/21 10/29/21 05:15 05:15 06:40 WBC 15.8 H RBC 4.87 Hgb 14.8 Hct 43.8 MCV 89.9 MCH 30.3 MCHC 33.7 RDW 14.6 Plt Count 267 Neut % (Auto) 90.5 H Lymph % (Auto) 3.3 L [place] % (Auto) 5.8 Eos % (Auto) 0.1 L Baso % (Auto) 0.3 Neut # (Auto) 61476 H Lymph # (Auto) 500 L [place] # (Auto) 900 Eos # (Auto) 0 Baso # (Auto) 0 Sodium 134 L Potassium 5.1 Chloride 104 Carbon Dioxide 21 L BUN 17 Creatinine 0.74 Estimated GFR > 60.0 BUN/Creatinine Ratio 23.0 H Glucose 148 H Calcium 9.4 Magnesium 2.0 Total Bilirubin 1.6 H AST 48 H ALT 30 Alkaline Phosphatase 102 Total Protein 7.5 Albumin 4.0 Globulin 3.5 Albumin/Globulin Ratio 1.1 Lipase 34 SARS-CoV-2 (PCR) Positive H Assessment & Plan Assessment & Plan narrative: Perforated diverticulitis w/o abscess. perforation extends gas in to the retroparitoneal space. Tender but not surgical abdominal exam. Covid positive (likely residual) asymptomatic. Plan: Try medical management but may go on to require surgical intervention. Avoid Cipro. Nutrition consult for supplements. COVID-19 COVID-19 status: Positive Result date/Date tested (Pos, Neg/Pending): 10/29/21 Time Spent With Patient Critical Care time: I spent a total of [] minutes of critical care time on this patient's care today; this time is exclusive of procedural time. Quality VTE Deep Vein Thrombosis/Pulmonary Embolism Present on Admission: No
[2021-10-29] MEDS: DOCUSATE 100 MG CAPSULE PO (11:42)
[2021-10-29] MEDS: IBUPROFEN 600 MG TABLET PO ×3 (11:42→23:57)
[2021-10-29] MEDS: MULTIVITAMIN 1 TABLET 1 TAB PO (11:42)
[2021-10-29] MEDS: ACETAMINOPHEN 325 MG TABLET 650 MG PO ×3 (11:42→23:58)
[2021-10-29] MEDS: PIPERACILLIN/TAZO 3.375 GM in SODIUM CHLORIDE 0.9% 100 ML 25 ML IV ×2 (11:44→18:03)
[2021-10-29] MEDS: ENOXAPARIN 40 MG/0.4 ML SYRINGE SUBCUT (11:44)
--- NOTE | 2021-10-29 12:50 | PC.NURSE ---
Addendum entered by Marely Dillon R.N. 10/29/21 19:14: Patient given tylenol and ibuprofen. She asked how often she can have pain medication and this was explained to her. She is going to call if she needs pain meds. She wanted to see how the ibuprofen and tylenol would work for her discomfort. Patient states that she has no pain while lying down but when she gets up to the commode then she does have some discomfort with movement. Report passed on to night nurse nurse. Addendum entered by Gertrude Storey R.N. 10/29/21 14:30: Patient is comfortable and she denies pain. She can be independent to the [facility] as she is steady on her feet. Original Note: Assess- Patient is alert and oriented x3, she denies pain after dilaudid given to her down in the ER. She is admitted for perforated colon, diverticulitis per . She is on a full liquid diet, and denies nausea at this time. Up to commode independently. BS 114, she denies hypoglycemia. IV antibiotic infusing and patient is settled. She is also tolerating apple juice.
--- NOTE | 2021-10-29 13:41 | DIET.PN1 ---
Dietary Progress Note Assessment: RD consulted on 61y F admitted for diverticulitis requiring ONS to achieve 20-25kcal/kg. Recc ONS Ensure Enlive tid in addition to full liquid meal trays providing 50% kcals and 70% protein needs (25kcal/kg and 1 g/kg PRO). Ht: 168.91 cm Wt: 85.729 kg BMI: 30.0 Last BM: 10/29/21 (10/29/21 10:36) MNA: 14 Seven Score: 22 Diet: 10/29/21 Lunch Full Liquid Diet Diet Modifications: Ensure enlive tid Labs: RBC 4.87 X10^6/uL (4.0-5.2) 10/29/21 05:15 Hgb 14.8 g/dL (12.0-16.0) 10/29/21 05:15 Hct 43.8 % (36-46) 10/29/21 05:15 Creatinine 0.74 mg/dL (0.52-1.04) 10/29/21 05:15 Monitoring/Evaluations: POs, ONS tolerance Electronically Signed by: Renay Lucas 10/29/21 13:41 Clinical Dietitian [address] [address]
[2021-10-30] VITALS (11 sets, daily range): BP systolic 112–151; BP diastolic 79–95; PULSE 84–120; RESP 16–19; TEMP 36.4–37.2; O2SAT 95–99
[2021-10-30] MEDS: PIPERACILLIN/TAZO 3.375 GM in SODIUM CHLORIDE 0.9% 100 ML 25 ML IV ×3 (02:42→18:58)
[2021-10-30] MEDS: IBUPROFEN 600 MG TABLET PO ×2 (05:38→13:45)
[2021-10-30] MEDS: ACETAMINOPHEN 325 MG TABLET 650 MG PO ×4 (05:38→23:30)
[2021-10-30] MEDS: SODIUM CHLORIDE 0.9% 1,000 ML 100 ML IV ×2 (05:55→20:03)
--- NOTE | 2021-10-30 06:41 | PC.NURSE ---
Pt has been voiding via BSC, pt noticed blood in the urine as well as some rectal bleeding. pt states she is feeling better today and pain is under control with ibuprofen/tylenol every 6 hours. Pt bowel tones are hypo, however pt is passing gas.
[2021-10-30 07:17] LABS: Add Manual Diff / Slide Review NO; Basophils Absolute Auto 0 /uL (0-100); Basophils Percent Auto 0.3 % (0-2); Eosinophils Absolute Auto 300 /uL (0-450); Eosinophils Percent Auto 3.5 % (2-4); Hemoglobin 13.2 g/dL (12.0-16.0); Lymphocytes Absolute Auto 300 /uL (1100-4500); Lymphocytes Percent Auto 3.5 % (25-40); Mean Corpuscular HGB Conc 33.9 % (30-36); Mean Corpuscular Hemoglobin 30.8 PG (26-34); Mean Corpuscular Volume 90.8 fL (80-100); Monocytes Absolute Auto 300 /uL (0-900); Monocytes Percent Auto 3.6 % (3-14); Neutrophils Absolute Auto 8400 /uL (1500-7000); Neutrophils Percent Auto 89.1 % (50-75); Platelet Count 239 X10^3/uL (150-400); Red Blood Cell Count 4.29 X10^6/uL (4.0-5.2); Red Cell Distribution Width 14.3 % (11.6-14.8); White Blood Cell Count 9.5 X10^3/uL (4.5-11.0)
[2021-10-30 07:21] LABS: Blood Urea Nitrogen 17 mg/dL (7-17); Calcium 9.2 mg/dL (8.4-10.2); Carbon Dioxide 25 mmol/L (22-32); Chloride 108 mmol/L (98-107); Estimated Glomerular Filt Rate > 60.0 mL/min (>60); Glucose 142 mg/dL (80-110); HEMOLYSIS < 15 (0-50); Potassium 3.9 mmol/L (3.4-5.1); Sodium 138 mmol/L (137-145)
[2021-10-30 07:29] LABS: NT-proBNP (BNP-Adult 18+) 613 pg/mL (<125)
[2021-10-30] MEDS: MULTIVITAMIN 1 TABLET 1 TAB PO (08:43)
[2021-10-30] MEDS: DOCUSATE 100 MG CAPSULE PO ×2 (08:43→20:00)
[2021-10-30] MEDS: ENOXAPARIN 40 MG/0.4 ML SYRINGE SUBCUT (08:43)
--- NOTE | 2021-10-30 09:24 | P.PN_ITS ---
Subjective Subjective Date Patient Seen: 10/30/21 Time Patient Seen: 09:25 Interval history: perforated diverticulitis w/o abscess. Responding to medical management. Plan: Another 24hr of IV antibiotics then switch to po. General diet. Discussed setting up colonoscopy in 8 weeks and recommend sigmoid colon removal given the intensity of this episode. Exam Vital Signs (past 8 hours): - 10/30/21 04:00 10/30/21 07:55 10/30/21 08:00 Temperature 97.7 F 97.5 F L Pulse Rate 84 115 H Respiratory Rate 18 16 Blood Pressure 137/95 H 112/81 Pulse Oximetry 97 98 98 Oxygen Delivery Method Room Air Oxygen Flow Rate 0 Narrative Exam Narrative: Decreased tenderness. no guarding. Const General: comfortable Objective Labs Result Diagrams: 10/30/21 06:40 10/30/21 06:40 Labs: Laboratory Results - last 24 hr 10/30/21 10/30/21 06:40 06:40 WBC 9.5 RBC 4.29 Hgb 13.2 Hct 39.0 MCV 90.8 MCH 30.8 MCHC 33.9 RDW 14.3 Plt Count 239 Neut % (Auto) 89.1 H Lymph % (Auto) 3.5 L [place] % (Auto) 3.6 Eos % (Auto) 3.5 Baso % (Auto) 0.3 Neut # (Auto) 8400 H Lymph # (Auto) 300 L [place] # (Auto) 300 Eos # (Auto) 300 Baso # (Auto) 0 Sodium 138 Potassium 3.9 D Chloride 108 H Carbon Dioxide 25 BUN 17 Creatinine 0.74 Estimated GFR > 60.0 BUN/Creatinine Ratio 23.0 H Glucose 142 H Calcium 9.2 NT-Pro-B Natriuret Pep 613 H PFSH Medical History Anhidrosis BMI 31.0-31.9,adult Chronic fatigue Mikayla-Read infection Facet arthropathy, lumbar Fatigue Mihaela's disease Hemorrhoids Herniated nucleus pulposus, L4-5 Raynaud phenomenon Reactive hypoglycemia Vitamin D deficiency Surgical History Status post cholecystectomy Status post parathyroidectomy Family History Brother Age: 67 Arthritis of knee Essential hypertension High cholesterol Father Stomach cancer Heart disease Essential hypertension High cholesterol Kidney problem Grandfather Heart disease Essential hypertension Stroke Mother Heart disease Essential hypertension High cholesterol Grandfather Heart disease Essential hypertension Grandmother Heart disease Essential hypertension Stroke Social History household members: spouse Smoking Status: Never smoker alcohol intake: never Assessment & Plan Assessment & Plan narrative: Perforated diverticulitis (recurrent) w/o abscess responding to medical management. Plan: another 24 hrs of IV antibiotics before changing to po. Colonoscopy in 8 weeks. Further discussion of Sigmoid colectomy given the severity this time. COVID-19 COVID-19 status: Positive Time Spent With Patient Time with patient: 30 to 49 minutes with 50% spent counseling/coordinating care Critical Care time: I spent a total of [] minutes of critical care time on this patient's care today; this time is exclusive of procedural time. Quality VTE Deep Vein Thrombosis/Pulmonary Embolism Present on Admission: No
[2021-10-30] MEDS: LACTOBACILLUS ACIDOPHILUS TABLET 1 EACH PO (11:15)
[2021-10-30] MEDS: ZINC SULFATE 220 MG CAPSULE PO (11:16)
--- NOTE | 2021-10-30 11:37 | CM.DANOTE ---
DCP: Case received, EMR reviewed. Did not meet with patient due to her being COVID positive, and attempted to call patient's room with no answer. Completed DCP assessment based upon information currently available. Patient is a 61 year old female who admitted yesterday morning to the care of the hospitalist team. PCP: DAJUAN Pepper. Payer: confirmed: [facility] [employer]. Patient came to the hospital via private vehicle secondary to having increased abdominal pain, and blood in her stool. Patient holds current diagnosis of Perforated Diverticulitis with abscess. Patient is here for IV antibiotics. She has had surgical consult, and is noted that patient will continue with another 24 hours of IV ABO and then switch to oral. Patient had been noted to be positive for COVID, and is still currently positive, and is in isolation. Attempted to call patient's room, and she did not answer. According to records, patient resides here in [place] with her spouse, Lino. She gets her medical care at [facility], with Eliz Nuñez. P: DCP to continue to follow for any needs. Patient should be able to go home when she is deemed medically stable. Hien Murray RN/Card Game Operator Discharge Planning/Care Management Advanced directive,confirm from FACILITY Start: 10/29/21 10:44 Freq: Q24H Status: Active Protocol: Document 10/29/21 10:44 CLL (Rec: 10/29/21 12:46 CLL [id number]) Advance Directive, confirm on record Time 12:46 Person contacted patient Copy received No CM Discharge Assessment Start: 10/30/21 11:35 Freq: Status: Active Protocol: Document 10/30/21 11:35 (Rec: 10/30/21 11:37 [id number]) Discharge Planning Assessment Assigned Lab Technician Hien Murray RN/Card Game Operator Advance Directives? No History Provided By Patient,Medical Record Prior Living Arrangements House Household Members spouse Type of transporation used prior to Drives own vehicle admit Independent with ADL's Yes Is patient alert and oriented? Yes Caregiver for Another No Barriers to Discharge No Discharge Plan Home Transportation Arrangement Family Referrals Initiated None needed Whiteboard Updated in Patient Room with No name and ext. # of Lab Technician Comment Patient is COVID positive Review Status In Process Next Review Type Continued Stay Review
[2021-10-30] MEDS: SIMETHICONE 80 MG TABLET PO ×2 (15:12→20:01)
--- NOTE | 2021-10-30 19:31 | PC.NURSE ---
A&Ox4. BP elevated 142/89. Having abdominal gas pain and feeling constipated. Given PRN simethicone and scheduled docusate which provided minimal relief. Had one small bowel movement which she described as fairly painful. Room air 99%. Independent in room. General diet. Bed low, call light within reach.
[2021-10-30] MEDS: FAMOTIDINE 20 MG TABLET PO (20:01)
[2021-10-30] MEDS: CELECOXIB 200 MG CAPSULE PO (21:20)
[2021-10-31] VITALS (8 sets, daily range): BP systolic 100–127; BP diastolic 58–73; PULSE 89–120; RESP 14–18; TEMP 36.8–37.4; O2SAT 96–100
[2021-10-31] MEDS: OXYCODONE IR 5 MG TABLET PO ×4 (01:28→16:08)
[2021-10-31] MEDS: PIPERACILLIN/TAZO 3.375 GM in SODIUM CHLORIDE 0.9% 100 ML 25 ML IV (02:32)
[2021-10-31] MEDS: ACETAMINOPHEN 325 MG TABLET 650 MG PO ×2 (05:49→12:29)
[2021-10-31] MEDS: SIMETHICONE 80 MG TABLET PO ×2 (06:02→14:07)
[2021-10-31] MEDS: ZINC SULFATE 220 MG CAPSULE PO (08:15)
[2021-10-31] MEDS: AMOXICILLIN/CLAV 500/125 MG 1 TAB PO ×2 (08:15→16:08)
[2021-10-31] MEDS: CELECOXIB 200 MG CAPSULE PO (08:16)
[2021-10-31] MEDS: MULTIVITAMIN 1 TABLET 1 TAB PO (08:16)
[2021-10-31] MEDS: LACTOBACILLUS ACIDOPHILUS TABLET 1 EACH PO (08:16)
[2021-10-31] MEDS: ENOXAPARIN 40 MG/0.4 ML SYRINGE SUBCUT (08:16)
[2021-10-31 10:09] LABS: Add Manual Diff / Slide Review NO; Basophils Absolute Auto 100 /uL (0-100); Basophils Percent Auto 0.5 % (0-2); Eosinophils Absolute Auto 100 /uL (0-450); Eosinophils Percent Auto 1.1 % (2-4); Hematocrit 37.9 % (36-46); Hemoglobin 12.6 g/dL (12.0-16.0); Lymphocytes Absolute Auto 500 /uL (1100-4500); Lymphocytes Percent Auto 3.8 % (25-40); Mean Corpuscular HGB Conc 33.3 % (30-36); Mean Corpuscular Hemoglobin 30.2 PG (26-34); Mean Corpuscular Volume 90.6 fL (80-100); Monocytes Absolute Auto 800 /uL (0-900); Monocytes Percent Auto 6.5 % (3-14); Neutrophils Absolute Auto 10500 /uL (1500-7000); Neutrophils Percent Auto 88.1 % (50-75); Platelet Count 295 X10^3/uL (150-400); Red Blood Cell Count 4.18 X10^6/uL (4.0-5.2); Red Cell Distribution Width 14.7 % (11.6-14.8); White Blood Cell Count 11.9 X10^3/uL (4.5-11.0)
[2021-10-31] MEDS: DOCUSATE 100 MG CAPSULE PO (14:07)
--- NOTE | 2021-10-31 16:58 | PC.NURSE ---
A&Ox4. VSS aside from slightly elevated HR: 95. Room air. Abdominal pain in lower quadrants 5/10 , relieved with oxycodone. Bed low, call lgiht within reach. Covid precautions due to positive test but no sxs. Iv removed. Discharge instructions given. Questions answered. Wheeled off of unit at 16:45, driving home.
[2021-11-08 15:30] LABS: SARS CoV19 IgG <13.0
--- NOTE | 2021-11-24 06:26 | PM.DS.1 ---
History of Present Illness History of Present Illness Date Patient Seen: 10/31/21 Chief complaint: lower abdominal pain, bloody stool Narrative: 61 y.o woman who presented to the hospital with perforated diverticulitis without abscess. Discharge Providers Provider Date of admission: 10/29/21 07:45 Discharge Date: 10/31/21 Primary care physician: DAJUAN Pepper Consults: 10/29/21 10:07 Consult to Dietitian, Adult Routine Comment: supplements/ensure for 20-25Kcal/kg/day Reason For Exam: malnutriton Discharge provider: Chemo Wheeler MD Summary Hospital Course Discharge Diagnosis: diverticulitis Hospital Course: Admitted 10/29/21 with perforated diverticulitis, hemodynamically stable without peritonitis. Appropriately responded to IV antibitoic therapy. Leukocytosis downtrending, abdominal pain resolved and tolerating a regular diet. Converted to PO antibiotics. Discussed continued hospitalization but patient requesting discharge home for personal reasons. Return precautions for worsening abdominal pain, nausea, fever were discussed. Exam Vital Signs (past 8 hours): Oxygen Delivery Method Room Air Oxygen Flow Rate 0 Narrative Exam Narrative: Gen-Adult woman alert and orietned Chest-Non labored resp Abdomen-Soft, mild LLQ tenderness no peritonitis. Objective Labs Result Diagrams: 10/31/21 09:35 10/30/21 06:40 PFSH Medical History Anhidrosis BMI 31.0-31.9,adult Chronic fatigue Mikayla-Read infection Facet arthropathy, lumbar Fatigue Mihaela's disease Hemorrhoids Herniated nucleus pulposus, L4-5 Raynaud phenomenon Reactive hypoglycemia Vitamin D deficiency Surgical History Status post cholecystectomy Status post parathyroidectomy Family History Brother Age: 67 Arthritis of knee Essential hypertension High cholesterol Father Stomach cancer Heart disease Essential hypertension High cholesterol Kidney problem Grandfather Heart disease Essential hypertension Stroke Mother Heart disease Essential hypertension High cholesterol Grandfather Heart disease Essential hypertension Grandmother Heart disease Essential hypertension Stroke Social History household members: spouse Smoking Status: Never smoker alcohol intake: never Discharge Plan Discharge Plan Patient Disposition: Home Discharge orders & Medications Prescriptions: New celecoxib [Celebrex] 200 mg Capsule 200 mg PO BID Qty: 40 0RF Continued cholecalciferol (vitamin D3) [Vitamin D3] 2,000 UNIT capsule 2,000 unit PO DAILY Qty: 0 0RF Discontinued celecoxib 200 mg capsule See Rx Instructions .ROUTE .COMPLEX Qty: 30 2RF Dose Instruction: take 1 capsule by mouth once daily Rx Instructions: take 1 capsule by mouth once daily No Action oxycodone 10 mg tablet 10 mg PO Q4H PRN (Reason: pain) Qty: 50 0RF Follow up/Referrals: Eliz Nuñez ARNP [Primary Care Provider] - Geovanna Fletcher MD [Physician] - Diet/Activity/Treatments Diet: Diet as Tolerated Activity: no restrictions Other treatments: follow up 2 weeks, add colonoscopy 8 weeks out Visit Report/Discharge Packet Instructions: DI for Diverticulitis Discharge Data Primary Care Provider: Eliz Nuñez Quality VTE Deep Vein Thrombosis/Pulmonary Embolism Present on Admission: No
== END 2021-10-31 16:45 | disposition home or self-care (01) | DRG 391 ==
LOC: ED 07:07 → AC 07:46
PROVIDERS: Admitting Provider Surgery; Emergency Provider Emergency Medicine; PCP Nurse Practitioner Family; Referring Provider Emergency Medicine; Visit Provider Surgery
DX: K57.20 Diverticulitis of large intestine with perforation and abscess without bleeding (principal); U07.1 COVID-19
CPT/HCPCS: 36415; 71045; 74177; 80048; 80053; 82962; 83690; 83735; 83880; 85025; 86769; 87635; 94760; 96361; 96365; 96375; 99221; 99232; 99284; C9803; A9270; J1170; J1650; J1815; J2405; J2543; Q9967

== ENCOUNTER 2021-11-06 07:52 | Inpatient (IN) | payer OTHER, SELFPAY ==
[2021-11-06] VITALS (34 sets, daily range): BP systolic 95–130; BP diastolic 57–79; PULSE 24–142; RESP 10–136; TEMP 36.2–37.9; O2SAT 92–97; BMI 31.1; BMI 31.0
--- NOTE | 2021-11-06 | PATH_ITS ---
[facility] Accession Number: [id number] . 01 Material submitted: . colon - SIGMOID COLON . 01 Clinical history: . SEVERE PAIN. HERE A WEEK AGO-NOT BETTER . 02 Diagnosis: Sigmoid Colon, Segmental Resection: Invasive adenocarcinoma. Please see CAP Summary data below. . Case Summary: Procedure: Segmental resection. Macroscopic evaluation of mesorectum: Not applicable. Tumor site: Not specified. Please see comment. Histologic type: Adenocarcinoma. Histologic grade: G2, moderately differentiated. Tumor size: Cannot be determined. See comment. Tumor extent: Invades through muscularis propria into pericolorectal tissue. Macroscopic tumor perforation: Present. Lymphovascular invasion: Not identified. Perineural invasion: Present. Type of polyp in which invasive carcinoma arose: Tubular adenoma. Treatment effect: No known presurgical therapy. Margins: Distal margin involved by invasive carcinoma. See comment. Proximal margin (stapled) uninvolved by invasive carcinoma. . Regional lymph nodes: All regional lymph nodes negative for tumor. Number of lymph nodes examined: 22 Tumor deposits: Not identified. . Distant metastasis: Not applicable. . Pathologic stage classification (AJCC 8th Edition): pT Category: pT3 pN Category: pN0 pM category: Not applicable. . Additional findings: Diverticulosis. Early ischemia type changes at the proximal margin with viable mucosa. Perforation and serositis. . Special studies: No loss of nuclear expression of MMR proteins: Low probability of microsatellite instability - high (MSI-H). [facility] 11/15/2021 1616 Local . 02 Comment: This specimen was received unoriented with one end stapled and one end opened. Per discussion with surgeon, the stapled end is proximal /sigmoid colon and the opened end is distal/rectum. No mesorectum is identified in the specimen, and the area of perforation involves peritoneum, consistent with involvement above the peritoneal reflection. Upon examination of the specimen, there is up to a 5.0 cm ulcerated area at the distal end of the specimen, which is firm and involved by extensive inflammatory changes. Invasive tumor is measured as at least 3.0 cm (Block A20) and is associated with the area of perforation. The carcinoma extends into the pericolorectal tissue and is adjacent to abscess, but is not continuous with serosal surface through area of inflammation, consistent with at least a pT3 pathologic stage. Finally, the initial margin submitted (Block A1) contains adenocarcinoma at the the distal/opened end of specimen. . . As part of routine quality control projectionist, Dr. Abebe and Dr. Hammond also reviewed selected slides and agrees with the diagnosis of adenocarcinoma, at least pT3. Dr. Murillo discussed the intial findings of adenocarcinoma with Dr. Wheeler on 11/08/2021 at 12:26 pm. . 02 Electronically signed: . Lin Murillo MD, Pathologist NPI- [id number] . 01 Gross description: . The specimen is received in formalin labeled sigmoid colon and consists of a 30.0 cm in length x 3.5 cm in diameter portion of colon with one stapled and one opened margin. The serosa is rockwell-pink with multiple fibrinous adhesions and adherent purulent exudate located 0.2 cm from the opened margin. Opening reveals a rockwell-pink mucosa with normal to attenuated mucosal folds. The wall thickness measures 0.8 cm. Sectioning through the attached adipose tissue reveals rockwell-yellow lobulated cut surfaces. Also, received are two irregular rockwell-yellow lobulated fragments of adipose tissue measuring 11.5 x 10.5 x 2.5 cm in aggregate. Automobile Locator sections are submitted. . A1 - Margins (stapled blue, opened black). A2-A5 - Automobile Locator colon. ([id number]) A6-A16 - Automobile Locator lesion and adipose tissue. ([id number]) . The specimen is re-reviewed by Dr. Murillo with additional sections submitted in blocks A17 through A31, as described below. [place] ink is placed on intact serosa for orientation purposes. The fat is then stripped off of the colonic mucosa and examined for potential lymph nodes and submitted as follows: . A17-A18 - Mass in relation to serosa and area of perforation in composite. A19-A20 - Automobile Locator sections of mass. A21 - Eight potential lymph nodes. A22 - Six potential lymph nodes. A23 - Eight potential lymph nodes. A24 - Two potential lymph nodes, fragmented. A25 - Eight potential lymph nodes. A26 - Five potential lymph nodes. A27-A28 - Area of perforation. A29 - Eight potential lymph nodes. A30 - Nine potential lymph nodes. A31 - Two potential lymph nodes, one bisected. (:[id number]) /[facility] 11/15/2021 1616 Local . 02 Microscopic: . IMMUNOHISTOCHEMISTRY TESTING FOR MISMATCH REPAIR PROTEINS: . MLH1: Intact nuclear expression. MSH2: Intact nuclear expression. MSH6: Intact nuclear expression. PMS2: Intact nuclear expression. Background nonneoplastic tissue/internal control with intact nuclear expression. . . INTERPRETATION: No loss of nuclear expression of MMR proteins: low probability of microsatellite instability-high (MSI-H)* . Testing performed on Block A2. * There are exceptions to the above IHC interpretations. These results should not be considered in isolation, and clinical correlation with genetic counseling is recommended to assess the need for germline testing. . . * This test was developed and its performance characteristics determined by [employer]. It has not been cleared or approved by the U.S. Food and Drug Administration. The FDA has determined that such clearance or approval is not necessary. This test is used for clinical purposes. It should not be regarded as investigational or for research. . 02 Pathologist provided ICD-10: C20 . 02 CPT . 762416, R60110, C42068 Performed at: 01 [facility] [address] [facility], [place], [place] [id number] MD Gerson Martinez MD Phone: [phone] Performed at: 02 [facility] [place] [address] [place], [place] [id number] MD Lin Murillo MD Phone: [phone]
--- NOTE | 2021-11-06 07:58 | ED.ABDPAIN ---
HPI - Abdominal Pain General Chief Complaint: Abdominal Pain Stated Complaint: Severe Abd pain. Here a week ago-not better Time Seen by Provider: 11/06/21 07:56 Source: patient and old records reviewed Mode of arrival: Ambulatory Limitations: no limitations History of Present Illness HPI narrative: This is a 61-year-old female comes with complaint of increasing abdominal pain. Patient was seen here on 10/29/21 for abdominal pain. Patient was found have perforated diverticulitis. She was admitted. Started on IV Zosyn and was in the hospital for 2 days. Patient was on Zosyn in the hospital. She had improvement but not complete resolution of her pain. She was discharged home on oral Augmentin. Patient states her pain has been slowly increasing since she was discharged. She has also noted that she has had decreased urine output but feels like her bladder is very full. She denies fevers, chills or sweats. She denies any chest pain or pressure. She felt a little short of breath today when she got up to try to have a bowel movement. Patient has not had any syncope. She is noted to have tachycardia in the department and states she can feel that her heart has been fast today. She has felt mildly short of breath. Any nausea or vomiting. She states she has not had a bowel movement since Saturday, the 31 of October. She has been passing flatus but very minimal amounts. Patient notes that she has had some mild swelling in her lower extremities. She and her states she has been lying in bed all week. She has been taking oxycodone for pain. Of note patient does have positive for COVID in August. She had tested positive again here on her recent admission but states she has been asymptomatic. She has history of Mihaela's thyroiditis, controlled type 2 diabetes not requiring insulin or oral medication and celiac disease. She does have a history of cholecystectomy and parathyroidectomy. She is allergic to Levaquin/ciprofloxacin. She denies tobacco, alcohol or illicit. She is accompanied by her . Her PCP is Selena Nuñez. Related Data Home Medications Medication Instructions Recorded Confirmed cholecalciferol (vitamin D3) 50 2,000 unit PO DAILY #0 08/20/17 11/06/21 mcg (2,000 unit) capsule (Vitamin D3) doxycycline monohydrate 40 mg 40 mg PO DAILY 10/29/21 11/06/21 capsule,immediate - delay release (Oracea) Previous Rx's Medication Instructions Recorded celecoxib 200 mg capsule (Celebrex) 200 mg PO BID #40 cap 10/30/21 Allergies Allergy/AdvReac Type Severity Reaction Status Date / Time ciprofloxacin [CIPROFLOXACIN] Allergy Unknown Verified 11/06/21 08:13 levofloxacin [From LEVAQUIN] Allergy Unknown Verified 11/06/21 08:13 gluten Allergy Verified 11/06/21 08:13 fluoroquinolones Allergy Uncoded 11/06/21 11:30 Review of Systems Review of Systems ROS Unobtainable: All systems reviewed & are unremarkable except as noted in HPI and below Patient History Medical History Anhidrosis BMI 31.0-31.9,adult Chronic fatigue Mikayla-Read infection Facet arthropathy, lumbar Fatigue Mihaela's disease Hemorrhoids Herniated nucleus pulposus, L4-5 Raynaud phenomenon Reactive hypoglycemia Vitamin D deficiency Surgical History Status post cholecystectomy Status post parathyroidectomy Family History Brother Age: 67 Arthritis of knee Essential hypertension High cholesterol Father Stomach cancer Heart disease Essential hypertension High cholesterol Kidney problem Grandfather Heart disease Essential hypertension Stroke Mother Heart disease Essential hypertension High cholesterol Grandfather Heart disease Essential hypertension Grandmother Heart disease Essential hypertension Stroke Social History household members: spouse Smoking Status: Never smoker alcohol intake: never Smoking Status: Never smoker Substance Use Type: does not use Exam Narrative Exam Narrative: GENERAL: Alert and oriented x three, female in moderate distress. HEENT: Head normocephalic, atraumatic, EOMI, pupils reactive, face symmetric, moist mucous membranes NECK: Supple, full range of motion CARDIOVASCULAR: Tachycardic but regular rate and rhythm without murmurs, rubs or gallops. No JVD. Trace pedal edema bilaterally. RESPIRATORY: Breath sounds equal bilaterally, no wheezes rales or rhonchi. No tachypnea accessory muscle use. ABDOMEN: Patient has generalized abdominal tenderness. She is distended. She feels particularly full in the suprapubic region. bowel sounds all 4 quadrants. No guarding or rebound, rigidity, no mass appreciated. No bruit or pulsatile mass. : No CVA tenderness EXTREMITIES: Normal range of motion. Neurovascularly intact NEUROLOGICAL: Cranial nerves II through XII grossly intact. Moving all extremities SKIN: Warm, dry, no petechiae, no rashes or lesions. Initial Vital Signs Initial Vital Signs: Vital Signs Temperature 98.0 F 11/06/21 08:07 Pulse Rate 142 H 11/06/21 08:07 Respiratory Rate 22 11/06/21 08:07 Blood Pressure 114/75 11/06/21 08:07 Pulse Oximetry 93 11/06/21 08:07 Course Orders Ordered: ED Orders 11/06/21 12:01 Ictotest Urine Stat Urine Microscopic Stat Fentanyl (Fentanyl 100 Mcg/2 Ml Inj) 0 mcg IV Q5M PRN PRN Reason: Pain, Moderate (4-6) Hydromorphone HCl (Hydromorphone 1 Mg Inj) 1 mg IV Q1H PRN PRN Reason: Pain, Severe (7-10) Last Admin: 11/06/21 18:35 Dose: 1 mg Documented by: Admin: 11/06/21 11:04 Dose: 1 mg Documented by: BIBIANA Hydromorphone HCl (Hydromorphone 2 Mg Inj) 0 mg IV Q5M PRN PRN Reason: Pain, Severe (7-10) Lactated Ringer's (Lactated Ringers) 1,000 mls @ 150 mls/hr IV CONT [facility] Last Admin: 11/06/21 14:54 Dose: 150 mls/hr Documented by: Infusion: 11/06/21 14:54 Dose: 150 mls/hr Documented by: Admin: 11/06/21 12:54 Dose: 150 mls/hr Documented by: LUCIA Metronidazole (Flagyl) 500 mg in 100 mls @ 100 mls/hr IV Q8H [facility] Last Admin: 11/06/21 18:34 Dose: 100 mls/hr Documented by: SARINA Piperacillin Sod/Tazobactam (Sod 3.375 gm/ Sodium Chloride) 100 mls @ 25 mls/hr IV Q8H [facility] Last Admin: 11/06/21 18:08 Dose: 25 mls/hr Documented by: SARINA Lorazepam (Lorazepam 2 Mg/Ml Inj) 0.5 mg IV NOW PRN PRN Reason: Anxiety Metoclopramide HCl (Metoclopramide 10 Mg/2 Ml Inj) 10 mg IV NOW PRN PRN Reason: Nausea And Vomiting Naloxone HCl (Naloxone 0.4 Mg/Ml Vial) 0.2 mg IV Q2MIN PRN PRN Reason: Opiate Reversal Ondansetron HCl (Ondansetron 4 Mg/2 Ml Inj) 4 mg IV NOW PRN PRN Reason: Nausea And Vomiting Discontinued Medications Acetaminophen (Acetaminophen 325 Mg Tablet) 650 mg PO Q4HR PRN PRN Reason: Fever/Mild Pain (1-3) Sodium Chloride (Normal Saline 0.9%) 1,813.5 mls @ 604.5 mls/hr 30 ml/kg infuse over 3 hr (1813.5 ml) IV NOW ONE Stop: 11/06/21 11:12 Last Infusion: 11/06/21 12:44 Dose: 0 mls/hr Documented by: Admin: 11/06/21 08:18 Dose: 604.5 mls/hr Documented by: CHAS Piperacillin Sod/Tazobactam (Sod 4.5 gm/ Sodium Chloride) 100 mls @ 200 mls/hr IV NOW ONE Stop: 11/06/21 09:07 Last Infusion: 11/06/21 10:39 Dose: 0 mls/hr Documented by: Admin: 11/06/21 09:50 Dose: 200 mls/hr Documented by: FELTON Metronidazole (Flagyl) 500 mg in 100 mls @ 100 mls/hr IV NOW ONE Stop: 11/06/21 10:07 Last Infusion: 11/06/21 12:44 Dose: 0 mls/hr Documented by: Admin: 11/06/21 10:40 Dose: 100 mls/hr Documented by: FELTON Piperacillin Sod/Tazobactam (Sod 3.375 gm/ Sodium Chloride) 100 mls @ 200 mls/hr IV Q8H [facility] Last Admin: 11/06/21 17:57 Dose: Not Given Documented by: BIBIANA Piperacillin Sod/Tazobactam (Sod 3.375 gm/ Sodium Chloride) 100 mls @ 200 mls/hr IV Q8H [facility] Last Admin: 11/06/21 18:24 Dose: Not Given Documented by: BIBIANA Morphine Sulfate (Morphine 4 Mg/Ml Inj) 4 mg IV NOW ONE Stop: 11/06/21 08:34 Last Admin: 11/06/21 08:40 Dose: 4 mg Documented by: FELTON Oxycodone HCl (Oxycodone Ir 5 Mg Tablet) 5 mg PO Q4HR PRN PRN Reason: Pain, Moderate (4-6) Reevaluation(s) Reevaluation #1: patient updated on findings. Patient HR improving but not normalized. Consultations Consultation #1: Dr. Zhao, general surgery reviewed imaging and labs. Plan for admission. Dr. Wheeler is salesperson jewelry today saw patient here in the department and accepts for admission with plan for OR. Patient has been started IV antibiotics. Fluids. Vital Signs Vital signs: Vital Signs - 8 hr 11/06/21 08:07 11/06/21 08:26 11/06/21 08:30 Temperature 98.0 F Pulse Rate 142 H 138 H 135 H Respiratory Rate 22 23 24 Blood Pressure 114/75 106/79 Pulse Oximetry 93 94 94 11/06/21 08:33 Temperature 98 F Pulse Rate Respiratory Rate Blood Pressure Pulse Oximetry 94 MDM - Abdominal Pain Lab Data Result diagrams: 11/06/21 08:20 11/06/21 08:20 Labs: Lab Results 11/06/21 11/06/21 11/06/21 Range/Units 08:20 08:20 08:20 WBC 27.6 H (4.5-11.0) X10^3/uL RBC 4.83 (4.0-5.2) X10^6/uL Hgb 14.4 (12.0-16.0) g/dL Hct 42.0 (36-46) % MCV 87.0 D (80-100) fL MCH 29.7 (26-34) PG MCHC 34.2 (30-36) % RDW 15.4 H (11.6-14.8) % Plt Count 547 H (150-400) X10^3/uL Neut % (Auto) 94.1 H (50-75) % Lymph % (Auto) 3.7 L (25-40) % [place] % (Auto) 1.7 L (3-14) % Eos % (Auto) 0.2 L (2-4) % Baso % (Auto) 0.3 (0-2) % Neut # (Auto) 89321 H (2181-8840) /uL Lymph # (Auto) 1000 L (5160-5389) /uL [place] # (Auto) 500 (0-900) /uL Eos # (Auto) 0 (0-450) /uL Baso # (Auto) 100 (0-100) /uL PT (10.1-12.7) SECONDS INR (0.9-1.3) APTT (26.4-36.2) SECONDS D-Dimer (<230) ng/mL Sodium 134 L (137-145) mmol/L Potassium 3.9 (3.4-5.1) mmol/L Chloride 102 (98-107) mmol/L Carbon Dioxide 27 (22-32) mmol/L BUN 20 H (7-17) mg/dL Creatinine 0.65 (0.52-1.04) mg/dL Estimated GFR > 60.0 (>60) mL/min BUN/Creatinine Ratio 30.8 H (6-22) Glucose 154 H (80-110) mg/dL Lactate (0.7-2.1) mmol/L Calcium 8.8 (8.4-10.2) mg/dL Total Bilirubin 2.0 H (0.2-1.3) mg/dL AST 34 (14-36) IU/L ALT 52 H (<35) IU/L Alkaline Phosphatase 231 H D (38-126) U/L Total Creatine Kinase < 20 L (30-135) U/L CK-MB (CK-2) TNP CK-MB (CK-2) Rel Index TNP Troponin I < 0.012 (0.01-0.034) ng/mL NT-Pro-B Natriuret Pep 709 H (<125) pg/mL Total Protein 5.9 L (6.3-8.2) g/dL Albumin 2.7 L (3.5-5.0) g/dL Globulin 3.2 (1.7-4.1) g/dL Albumin/Globulin Ratio 0.8 L (1.0-2.8) Lipase 25 (23-300) U/L Procalcitonin 0.81 H (<0.5) ng/mL SARS-CoV-2 (PCR) (Negative) 11/06/21 11/06/21 11/06/21 Range/Units 08:20 08:20 08:45 WBC (4.5-11.0) X10^3/uL RBC (4.0-5.2) X10^6/uL Hgb (12.0-16.0) g/dL Hct (36-46) % MCV (80-100) fL MCH (26-34) PG MCHC (30-36) % RDW (11.6-14.8) % Plt Count (150-400) X10^3/uL Neut % (Auto) (50-75) % Lymph % (Auto) (25-40) % [place] % (Auto) (3-14) % Eos % (Auto) (2-4) % Baso % (Auto) (0-2) % Neut # (Auto) (7180-7916) /uL Lymph # (Auto) (6414-2486) /uL [place] # (Auto) (0-900) /uL Eos # (Auto) (0-450) /uL Baso # (Auto) (0-100) /uL PT 13.8 H (10.1-12.7) SECONDS INR 1.2 (0.9-1.3) APTT 28 (26.4-36.2) SECONDS D-Dimer 2267 H (<230) ng/mL Sodium (137-145) mmol/L Potassium (3.4-5.1) mmol/L Chloride (98-107) mmol/L Carbon Dioxide (22-32) mmol/L BUN (7-17) mg/dL Creatinine (0.52-1.04) mg/dL Estimated GFR (>60) mL/min BUN/Creatinine Ratio (6-22) Glucose (80-110) mg/dL Lactate 1.4 (0.7-2.1) mmol/L Calcium (8.4-10.2) mg/dL Total Bilirubin (0.2-1.3) mg/dL AST (14-36) IU/L ALT (<35) IU/L Alkaline Phosphatase (38-126) U/L Total Creatine Kinase (30-135) U/L CK-MB (CK-2) CK-MB (CK-2) Rel Index Troponin I (0.01-0.034) ng/mL NT-Pro-B Natriuret Pep (<125) pg/mL Total Protein (6.3-8.2) g/dL Albumin (3.5-5.0) g/dL Globulin (1.7-4.1) g/dL Albumin/Globulin Ratio (1.0-2.8) Lipase (23-300) U/L Procalcitonin (<0.5) ng/mL SARS-CoV-2 (PCR) Negative (Negative) Point of care testing: Urine Dip Bedside Urine Glucose Negative Bedside Urine Bilirubin + 1 Bedside Urine Ketone - Negative Urine Specific [place] 1.020 Bedside Urine Occult Blood - Negative Bedside Urine pH 6.0 Bedside Urine Protein +/- 15 Bedside Urine Urobilinogen 2+ 4mg Bedside Urine Nitrite - Negative Bedside Urine Leukocytes +/- 15 Esterase Imaging Data Chest x-ray: Radiologist's Impression: [address] [address] XRay Report Signed Patient: Isabelle Velazquez MR#: [id number] : 1960 Acct:[id number] Age/Sex: 61 / F Date of Service: 11/06/21 Loc: ED Accession Number: [id number] ?? Procedure: XR chest 1V Ordering Provider: Zaria Villalobos D.O. PROCEDURE:? XR CHEST 1V ? INDICATIONS:? abd pain, tachycardia, sob ? TECHNIQUE:? One view of the chest was acquired.? ? COMPARISON:? [facility], , XR CHEST 1V, 10/29/2021, 8:15. ? FINDINGS:? ? Surgical changes and devices:? Cholecystectomy clips. ? Lungs and pleura:? Low lung volumes.? Mild bibasilar hazy opacity.? No pleural effusions or pneumothorax.? ? Mediastinum:? Mediastinal contours are not significantly changed.? Heart size is within normal limits.? ? Bones and chest wall:? No suspicious bony lesions.? Pneumoperitoneum.? This was seen on CT 10/29/2021. ? IMPRESSION:? 1. Low lung volumes.? Mild bibasilar atelectasis. ? 2. Pneumoperitoneum is again seen.? This could be further evaluated with CT abdomen pelvis with IV contrast if clinically indicated. ? ? Dictated by: Jose Arroyo M.D. on 11/06/2021 at 8:47 ? ? Approved by: Jose Arroyo M.D. on 11/06/2021 at 8:50?? CT scan - chest: Radiologist's Impression: [address] [address] XRay Report Signed Patient: Isabelle Velazquez MR#: [id number] : 1960 Acct:[id number] Age/Sex: 61 / F Date of Service: 11/06/21 Loc: ED Accession Number: [id number] ?? Procedure: XR chest 1V Ordering Provider: Zaria Villalobos D.O. PROCEDURE:? XR CHEST 1V ? INDICATIONS:? abd pain, tachycardia, sob ? TECHNIQUE:? One view of the chest was acquired.? ? COMPARISON:? [facility], CR, XR CHEST 1V, 10/29/2021, 8:15. ? FINDINGS:? ? Surgical changes and devices:? Cholecystectomy clips. ? Lungs and pleura:? Low lung volumes.? Mild bibasilar hazy opacity.? No pleural effusions or pneumothorax.? ? Mediastinum:? Mediastinal contours are not significantly changed.? Heart size is within normal limits.? ? Bones and chest wall:? No suspicious bony lesions.? Pneumoperitoneum.? This was seen on CT 10/29/2021. ? IMPRESSION:? 1. Low lung volumes.? Mild bibasilar atelectasis. ? 2. Pneumoperitoneum is again seen.? This could be further evaluated with CT abdomen pelvis with IV contrast if clinically indicated. ? ? Dictated by: Jose Arroyo M.D. on 11/06/2021 at 8:47 ? ? Approved by: Jose Arroyo M.D. on 11/06/2021 at 8:50?? CT scan - abdomen/pelvis: Radiologist's Impression: Close Chest CTA (Signed) Delmy Seymour - 11/06/21 Abdomen/Pelvis CT (Signed) Sammi Reyes - 11/06/21 Chest X-Ray (Signed) Jose Arroyo - 11/06/21 Chest X-Ray (Signed) Delmy Seymour - 10/29/21 Abdomen/Pelvis CT (Signed) Natalee Seymourbev - 10/29/21 Injection Lumbar, Sacrum (Signed) [place] - 01/25/20 Lumbar Spine X-Ray (Signed) Brittany Reyeszack - 11/05/19 Lumbar Spine MRI (Signed) Brittany Reyeszack - 11/05/19 Launch?Image [address] [address] [address] Scan Report Signed Patient: Isabelle Velazquez MR#: [id number] : 1960 Acct:[id number] Age/Sex: 61 / F Date of Service: 11/06/21 Loc: ED Accession Number: [id number] ?? Procedure: CT abdomen pelvis w con Ordering Provider: Zaria Villalobos D.O. PROCEDURE:? CT ABDOMEN PELVIS W CON ? INDICATIONS:? perf diveriticulitis 10/29, incr pain, no BM, urine retentio ? TECHNIQUE:? After the administration of IV contrast, axial sections were acquired from the lung bases to the pubic symphysis.? Coronal and sagittal reformats were performed.? For radiation dose reduction, the following was used:? automated exposure control, adjustment of mA and/or kV according to patient size. ? COMPARISON:? [facility], CT, CT ABDOMEN PELVIS W CON, 10/29/2021, 5:50. ? FINDINGS:? Image quality:? Excellent.? ? Lung bases:? Small pleural effusions are present bilaterally.? Bibasilar consolidation or atelectasis.? Calcified lung nodules at lung bases and left infrahilar lymph nodes are noted.? ? Heart:? Normal heart size.? Small pericardial effusion. ? ? ABDOMEN: Liver:? Normal size.? Mild intrahepatic biliary dilation.? ? Gallbladder:? Surgically removed.? ? Biliary ducts:? Mildly dilated intrahepatic duct an prominent common bile duct measuring 7 mm, presumably related to cholecystectomy.? ? Pancreas:? Unremarkable.? ? Spleen:? Normal size.? Numerous calcified granulomas are present in spleen.? ? Adrenal Glands:? Unremarkable.? ? Kidneys and Ureters:? Normal in size and symmetrical enhancement.? There is a 1 mm nonobstructive stone in the superior pole of the left kidney.? Trace bilateral renal pelviectasis.? ? ? Stomach and Bowel:? Stomach and small bowel loops are normal in caliber and wall thickness.? There is a large amount of stool in proximal colon.? There is perforation of sigmoid colon.? Scattered colonic diverticula present.? Sigmoid colon and rectum appear thickened. Peritoneum:? There is an abscess in the pelvis right of the sigmoid colon/rectum measuring 7.6 cm AP x 6.9 cm transverse? 10.7 cm cephalocaudal.? A small amount of free fluid is present.? There is moderate free peritoneal air. ? Ventral Wall: ? No hernia.? Abdominal Nodes:? No retroperitoneal or mesenteric adenopathy by size criteria.? Vessels:? Aorta and inferior vena cava are normal in size.? ? PELVIS: Pelvic Organs:? There are multiple uterine fibroids.? ? Bladder:? Bladder is displaced anteriorly by the pelvic abscess.? Bladder is mildly distended.? Bladder wall is normal in thickness.? ? Pelvic Nodes: No enlarged lymph nodes.? Miscellaneous: No inguinal hernias are seen. ? ? ? Bones:? Small sclerotic foci in iliac bones and the right femoral neck are most likely bone islands ? ? IMPRESSION:? ? 1.? Perforated sigmoid colon.? There is increased free air in the peritoneal cavity since the last exam.? There are scattered colonic diverticula.? There is thickening of sigmoid colon and rectum.? Etiology may be perforated diverticulum or diverticulitis versus perforated colon cancer.? After adequate treatment of acute illness, a colonoscopy is suggested. ? 2. There is a large abscess in pelvis right of the sigmoid colon/rectum measuring 7.6 x 6.9 x 10.7 cm. ? 3. Small pleural effusions with bibasilar consolidation or atelectasis. ? 4. Small pericardial effusion. ? 5. Myomatous uterus with multiple uterine fibroids. ? 6.? Remote granulomatous infection.? ? ? The result was discussed with Dr. Villalobos. ? ? Dictated by: Russell Reyes M.D. on 11/06/2021 at 9:23 ? ? Approved by: Russell Reyes M.D. on 11/06/2021 at 9:46?? ECG Data Attestation: I personally reviewed and interpreted this ECG as follows: Prior ECG tracings: not available for review Interpretation: Sinus tachycardia patient has Q-wave in lead 3. No other ST segment changes appreciated. No priors for comparison. MDM Narrative Medical decision making narrative: 61-year-old female comes emergency department with worsening abdominal pain after being diagnosed with diverticulitis with perforation, kept in the hospital on IV antibiotics discharged home on oral antibiotics. She has not had fevers but she has had worsening abdominal pain. No nausea or vomiting but she has not had a bowel movement since discharge. She also states she has had decreased urine output and feels like she is having retention of urine. She is tachycardic 140, she has not been hypotensive or febrile but exam is concerning for developing abscess or obstruction. Patient has not had hypoxia but states she has been lying in bed all week so D-dimer was included which is elevated, CT angiography is negative for PE she has pole effusion small pericardial effusion. She has a large abdominal abscess with increased air in her abdomen. Patient was started on Zosyn along with Flagyl. General surgery was consulted and accepts for admission with plan for ICU and OR today. Discharge Plan Departure Patient Disposition: Admitted As Inpatient Clinical Impression: Diverticulitis of intestine with perforation and abscess, Sepsis, Pleural effusion Admit Date/Time: 11/06/21 10:46 Admit Provider: Chemo Wheeler
--- NOTE | 2021-11-06 08:11 | DI.RAD.S_ITS ---
PROCEDURE: XR CHEST 1V INDICATIONS: abd pain, tachycardia, sob TECHNIQUE: One view of the chest was acquired. COMPARISON: [facility], , XR CHEST 1V, 10/29/2021, 8:15. FINDINGS: Surgical changes and devices: Cholecystectomy clips. Lungs and pleura: Low lung volumes. Mild bibasilar hazy opacity. No pleural effusions or pneumothorax. Mediastinum: Mediastinal contours are not significantly changed. Heart size is within normal limits. Bones and chest wall: No suspicious bony lesions. Pneumoperitoneum. This was seen on CT 10/29/2021. IMPRESSION: 1. Low lung volumes. Mild bibasilar atelectasis. 2. Pneumoperitoneum is again seen. This could be further evaluated with CT abdomen pelvis with IV contrast if clinically indicated. Dictated by: Jose Arroyo M.D. on 11/06/2021 at 8:47 Approved by: Jose Arroyo M.D. on 11/06/2021 at 8:50
[2021-11-06] MEDS: SODIUM CHLORIDE 0.9% 604.5 ML IV (08:18)
--- NOTE | 2021-11-06 08:33 | DI.CT.S_ITS ---
PROCEDURE: CT ANGIO CHEST PE PROTOCOL INDICATIONS: recent hosp, tachy, sob TECHNIQUE: After the administration of intravenous contrast, 2 mm thick sections acquired from the pulmonary apices to the posterior costophrenic angles. 3-dimensional maximum intensity projection (MIP) coronal and sagittal reformats were then acquired through the thorax. For radiation dose reduction, the following was used: automated exposure control, adjustment of mA and/or kV according to patient size. COMPARISON: [facility], CT, CT ABDOMEN PELVIS W CON, 10/29/2021, 5:50. FINDINGS: Image quality: Suboptimal pulmonary arterial opacification. Pulmonary arteries: Pulmonary arteries are normal in size, and demonstrate no intraluminal filling defects to suggest central pulmonary embolism. Lungs and pleura: Small bilateral pleural effusions are present. No pneumothorax. There is mild dependent bilateral lower lobe atelectasis. There is a peripheral 5 mm nodule within the posterolateral aspect of the lingula. 3 mm nodule within the left upper lobe laterally. Central and peripheral airways are patent. Mediastinum: Heart size is normal. Increased, moderate pericardial effusion. No mediastinal or hilar adenopathy. Calcified left infrahilar lymph nodes are present. Thoracic aorta is normal in caliber and enhancement. Esophagus is normal in caliber, without hiatal hernia. Bones and chest wall: No suspicious bony lesions. Ribs and thoracic spine appear intact throughout. Thyroid gland is grossly unremarkable. No axillary or supraclavicular adenopathy. Abdomen: Visualized portions of the upper abdomen demonstrate increased, moderate pneumoperitoneum as well as retroperitoneal air. IMPRESSION: 1. Limited evaluation for pulmonary embolus. No definite pulmonary embolus. 2. Increased pneumoperitoneum. 3. Bilateral pulmonary nodules. Follow-up is recommended as below. 4. Small bilateral pleural effusions. 5. Increased, moderate pericardial effusion. Dictated by: Delmy Seymour M.D. on 11/06/2021 at 9:23 Approved by: Delmy Seymour M.D. on 11/06/2021 at 9:28
--- NOTE | 2021-11-06 08:33 | DI.CT.S_ITS ---
PROCEDURE: CT ABDOMEN PELVIS W CON INDICATIONS: perf diveriticulitis 10/29, incr pain, no BM, urine retentio TECHNIQUE: After the administration of IV contrast, axial sections were acquired from the lung bases to the pubic symphysis. Coronal and sagittal reformats were performed. For radiation dose reduction, the following was used: automated exposure control, adjustment of mA and/or kV according to patient size. COMPARISON: [facility], CT, CT ABDOMEN PELVIS W CON, 10/29/2021, 5:50. FINDINGS: Image quality: Excellent. Lung bases: Small pleural effusions are present bilaterally. Bibasilar consolidation or atelectasis. Calcified lung nodules at lung bases and left infrahilar lymph nodes are noted. Heart: Normal heart size. Small pericardial effusion. ABDOMEN: Liver: Normal size. Mild intrahepatic biliary dilation. Gallbladder: Surgically removed. Biliary ducts: Mildly dilated intrahepatic duct an prominent common bile duct measuring 7 mm, presumably related to cholecystectomy. Pancreas: Unremarkable. Spleen: Normal size. Numerous calcified granulomas are present in spleen. Adrenal Glands: Unremarkable. Kidneys and Ureters: Normal in size and symmetrical enhancement. There is a 1 mm nonobstructive stone in the superior pole of the left kidney. Trace bilateral renal pelviectasis. Stomach and Bowel: Stomach and small bowel loops are normal in caliber and wall thickness. There is a large amount of stool in proximal colon. There is perforation of sigmoid colon. Scattered colonic diverticula present. Sigmoid colon and rectum appear thickened. Peritoneum: There is an abscess in the pelvis right of the sigmoid colon/rectum measuring 7.6 cm AP x 6.9 cm transverse 10.7 cm cephalocaudal. A small amount of free fluid is present. There is moderate free peritoneal air. Ventral Wall: No hernia. Abdominal Nodes: No retroperitoneal or mesenteric adenopathy by size criteria. Vessels: Aorta and inferior vena cava are normal in size. PELVIS: Pelvic Organs: There are multiple uterine fibroids. Bladder: Bladder is displaced anteriorly by the pelvic abscess. Bladder is mildly distended. Bladder wall is normal in thickness. Pelvic Nodes: No enlarged lymph nodes. Miscellaneous: No inguinal hernias are seen. Bones: Small sclerotic foci in iliac bones and the right femoral neck are most likely bone islands IMPRESSION: 1. Perforated sigmoid colon. There is increased free air in the peritoneal cavity since the last exam. There are scattered colonic diverticula. There is thickening of sigmoid colon and rectum. Etiology may be perforated diverticulum or diverticulitis versus perforated colon cancer. After adequate treatment of acute illness, a colonoscopy is suggested. 2. There is a large abscess in pelvis right of the sigmoid colon/rectum measuring 7.6 x 6.9 x 10.7 cm. 3. Small pleural effusions with bibasilar consolidation or atelectasis. 4. Small pericardial effusion. 5. Myomatous uterus with multiple uterine fibroids. 6. Remote granulomatous infection. The result was discussed with Dr. Villalobos. Dictated by: Russell Reyes M.D. on 11/06/2021 at 9:23 Approved by: Russell Reyes M.D. on 11/06/2021 at 9:46
[2021-11-06 08:35] LABS: INR 1.2 (0.9-1.3); Prothrombin Time 13.8 SECONDS (10.1-12.7)
[2021-11-06 08:36] LABS: Add Manual Diff / Slide Review NO; Basophils Absolute Auto 100 /uL (0-100); Basophils Percent Auto 0.3 % (0-2); Eosinophils Absolute Auto 0 /uL (0-450); Eosinophils Percent Auto 0.2 % (2-4); Hemoglobin 14.4 g/dL (12.0-16.0); Lymphocytes Absolute Auto 1000 /uL (1100-4500); Lymphocytes Percent Auto 3.7 % (25-40); Mean Corpuscular HGB Conc 34.2 % (30-36); Mean Corpuscular Hemoglobin 29.7 PG (26-34); Monocytes Absolute Auto 500 /uL (0-900); Monocytes Percent Auto 1.7 % (3-14); Neutrophils Absolute Auto 26000 /uL (1500-7000); Neutrophils Percent Auto 94.1 % (50-75); Platelet Count 547 X10^3/uL (150-400); Red Blood Cell Count 4.83 X10^6/uL (4.0-5.2); Red Cell Distribution Width 15.4 % (11.6-14.8); White Blood Cell Count 27.6 X10^3/uL (4.5-11.0)
[2021-11-06 08:38] LABS: PTT Partial Thromboplastin Tim 28 SECONDS (26.4-36.2)
[2021-11-06 08:39] LABS: Alanine Aminotransferase 52 IU/L (<35); Albumin 2.7 g/dL (3.5-5.0); Albumin Globulin Ratio 0.8 (1.0-2.8); Alkaline Phosphatase 231 U/L (38-126); Aspartate Aminotransferase 34 IU/L (14-36); BUN Creatinine Ratio 30.8 (6-22); Blood Urea Nitrogen 20 mg/dL (7-17); Calcium 8.8 mg/dL (8.4-10.2); Carbon Dioxide 27 mmol/L (22-32); Chloride 102 mmol/L (98-107); Creatine Kinase < 20 U/L (30-135); Estimated Glomerular Filt Rate > 60.0 mL/min (>60); Globulin 3.2 g/dL (1.7-4.1); Glucose 154 mg/dL (80-110); HEMOLYSIS < 15 (0-50); Lactate (Lactic Acid) 1.4 mmol/L (0.7-2.1); Lipase 25 U/L (23-300); Potassium 3.9 mmol/L (3.4-5.1); Sodium 134 mmol/L (137-145); Total Protein 5.9 g/dL (6.3-8.2)
[2021-11-06] MEDS: MORPHINE 4 MG/ML INJ IV (08:40)
[2021-11-06 08:45] LABS: D Dimer 2267 ng/mL (<230)
[2021-11-06 08:51] LABS: NT-proBNP (BNP-Adult 18+) 709 pg/mL (<125); Troponin I < 0.012 ng/mL (0.01-0.034)
[2021-11-06 08:56] LABS: Procalcitonin 0.81 ng/mL (<0.5)
[2021-11-06] MEDS: PIPERACILLIN/TAZO 4.5 GM in SODIUM CHLORIDE 0.9% 100 ML 200 ML IV (09:50)
[2021-11-06] MEDS: metroNIDAZOLE 500 MG/100 ML PIGGYBACK 100 MG IV ×2 (10:40→18:34)
[2021-11-06 10:48] LABS: COVID19 - ADMIT (NP swab/PCR) Negative (Negative)
--- NOTE | 2021-11-06 10:48 | PM.HP.1 ---
History of Present Illness History of Present Illness Chief complaint: Severe Abd pain. Here a week ago-not better Narrative: Patient is a 61 year old woman who presents emergency room with perforated diverticulitis. She was recently admitted for diverticulitis was discharged and her abdominal pain became worse over the course of the past 1 week. She reports severe pain and nausea. CT abdomen pelvis demonstrates pelvic abscess of 8 cm and free air. At admission tachycardic to 130 mild hypotension white blood cell count 28. She received Zosyn Flagyl and IV fluids. Patient History Medical History Anhidrosis BMI 31.0-31.9,adult Chronic fatigue Mikayla-Read infection Facet arthropathy, lumbar Fatigue Mihaela's disease Hemorrhoids Herniated nucleus pulposus, L4-5 Raynaud phenomenon Reactive hypoglycemia Vitamin D deficiency Surgical History Status post cholecystectomy Status post parathyroidectomy Family & Social History Family History Brother Age: 67 Arthritis of knee Essential hypertension High cholesterol Father Stomach cancer Heart disease Essential hypertension High cholesterol Kidney problem Grandfather Heart disease Essential hypertension Stroke Mother Heart disease Essential hypertension High cholesterol Grandfather Heart disease Essential hypertension Grandmother Heart disease Essential hypertension Stroke Social History: household members spouse Safety & Behavioral: Feels Safe in Current Yes Environment Been Physically Hurt or No Threatened By a Person Tobacco & Substance use: Smoking Status Never smoker alcohol intake never alcohol intake frequency 0-2 drinks per day Substance Use Type does not use Meds Home Medications and Allergies Home Medications Medication Instructions Recorded Confirmed Type cholecalciferol (vitamin D3) 50 2,000 unit PO DAILY #0 08/20/17 11/06/21 History mcg (2,000 unit) capsule (Vitamin D3) doxycycline monohydrate 40 mg 40 mg PO DAILY 10/29/21 11/06/21 History capsule,immediate - delay release (Oracea) celecoxib 200 mg capsule (Celebrex) 200 mg PO BID #40 cap 10/30/21 11/06/21 Rx Allergies Allergy/AdvReac Type Severity Reaction Status Date / Time ciprofloxacin [CIPROFLOXACIN] Allergy Unknown Verified 11/06/21 08:13 levofloxacin [From LEVAQUIN] Allergy Unknown Verified 11/06/21 08:13 gluten Allergy Verified 11/06/21 08:13 fluoroquinolones Allergy Uncoded 11/06/21 11:30 Exam Vital Signs (past 8 hours): - 11/06/21 08:07 11/06/21 08:26 11/06/21 08:30 Temperature 98.0 F Pulse Rate 142 H 138 H 135 H Respiratory Rate 22 23 24 Blood Pressure 114/75 106/79 Pulse Oximetry 93 94 94 11/06/21 08:33 11/06/21 09:16 11/06/21 09:18 Temperature 98 F Pulse Rate 130 H 127 H Respiratory Rate 20 Blood Pressure 99/67 Pulse Oximetry 94 96 96 11/06/21 09:30 Temperature Pulse Rate 128 H Respiratory Rate 23 Blood Pressure 111/68 Pulse Oximetry 97 Oxygen Delivery Method Room Air Narrative Exam Narrative: Constitutional-She is oriented to person, place and time. She is in distress Cardiovascular-tachycardic, no peripheral edema Pulmonary-unlabored respiratory effort, no audible wheezing Abdominal-peritonitis. Musculoskeletal-no cyanosis or clubbing Neurological-nonfocal, normal strength throughout, normal gait. Skin-warm and dry Objective Labs Result Diagrams: 11/06/21 08:20 11/06/21 08:20 Labs: Laboratory Results - last 24 hr 11/06/21 11/06/21 11/06/21 08:20 08:20 08:20 WBC 27.6 H RBC 4.83 Hgb 14.4 Hct 42.0 MCV 87.0 D MCH 29.7 MCHC 34.2 RDW 15.4 H Plt Count 547 H Neut % (Auto) 94.1 H Lymph % (Auto) 3.7 L [place] % (Auto) 1.7 L Eos % (Auto) 0.2 L Baso % (Auto) 0.3 Neut # (Auto) 65188 H Lymph # (Auto) 1000 L [place] # (Auto) 500 Eos # (Auto) 0 Baso # (Auto) 100 PT INR APTT D-Dimer Sodium 134 L Potassium 3.9 Chloride 102 Carbon Dioxide 27 BUN 20 H Creatinine 0.65 Estimated GFR > 60.0 BUN/Creatinine Ratio 30.8 H Glucose 154 H Lactate Calcium 8.8 Total Bilirubin 2.0 H AST 34 ALT 52 H Alkaline Phosphatase 231 H D Total Creatine Kinase < 20 L CK-MB (CK-2) TNP CK-MB (CK-2) Rel Index TNP Troponin I < 0.012 NT-Pro-B Natriuret Pep 709 H Total Protein 5.9 L Albumin 2.7 L Globulin 3.2 Albumin/Globulin Ratio 0.8 L Lipase 25 Procalcitonin 0.81 H SARS-CoV-2 (PCR) 11/06/21 11/06/21 11/06/21 08:20 08:20 08:45 WBC RBC Hgb Hct MCV MCH MCHC RDW Plt Count Neut % (Auto) Lymph % (Auto) [place] % (Auto) Eos % (Auto) Baso % (Auto) Neut # (Auto) Lymph # (Auto) [place] # (Auto) Eos # (Auto) Baso # (Auto) PT 13.8 H INR 1.2 APTT 28 D-Dimer 2267 H Sodium Potassium Chloride Carbon Dioxide BUN Creatinine Estimated GFR BUN/Creatinine Ratio Glucose Lactate 1.4 Calcium Total Bilirubin AST ALT Alkaline Phosphatase Total Creatine Kinase CK-MB (CK-2) CK-MB (CK-2) Rel Index Troponin I NT-Pro-B Natriuret Pep Total Protein Albumin Globulin Albumin/Globulin Ratio Lipase Procalcitonin SARS-CoV-2 (PCR) Negative Assessment & Plan Assessment and plan (1) Peritonitis: Status: Acute Plan 61 year old woman with peritonitis secondary to perforated diverticulitis with septic shock. -Fluid resuscitation and antibiotics -Exploratory laparotomy and end colostomy Imaging and laboratory studies were reviewed with the patient and her . I explained to her that she is septic shock secondary to perforated diverticulitis. Recommended that we proceed to the operating room her appy following resuscitation for an exploratory laparotomy and likely end colostomy. Explained the risks associated with the operation including bleeding infection hernia development damage to surrounding structures. Their questions have been answered and they are in agreement with this plan. Time Spent With Patient Critical Care time: I spent a total of [] minutes of critical care time on this patient's care today; this time is exclusive of procedural time.
[2021-11-06] MEDS: HYDROMORPHONE 1 MG INJ IV ×3 (11:04→22:31)
--- NOTE | 2021-11-06 11:24 | PC.NURSE ---
Addendum entered by Leslee Zhao R.N. 11/06/21 12:38: Off floor to surgery 12:35pm Addendum entered by Leslee Zhao R.N. 11/06/21 12:10: Add: Patient has concerns with post op healing and dietary restrictions. Pt is gluten free and has concerns about post op protein needs. Order for dietary consult placed, and crane rigger request. Original Note: Admit note: Pt arrived from ER and was able to slide over to hospital bed Room 228. Pt is A/o x4, able to make needs known. Request for pain medication. IV Dilaudid given per Emar. 2nd bag of NS infusing, Flagyl as well. PIV x1, L Wrist #20. Pt placed on tele, oriented to room and nurses station. ST 120-130's. Spouse at bedside. Plan to OR @ 1200.
[2021-11-06 12:04] LABS: Ictotest Urine Negative (Negative)
[2021-11-06 12:06] LABS: Bacteria Urine None Seen; Culture Indicated Urine Cult Not Indicated; RBC Urine None Seen (0-5/HPF); Urine Comments Microscopic Normal; WBC Urine None Seen (0-5/HPF)
--- NOTE | 2021-11-06 12:06 | DIET.OUTPTC ---
Addendum entered by Renay Lucas 11/06/21 16:03: Rd consulted for patient reporting reactive hypoglycemia. Recc BG checks over first day post-op and Rx available for correction of lows as needed until pt tolerating diet. Original Note: Dietary Consultation Note Consultation Date: 11/06/2021 Note that pt is celiac- avoids gluten, wheat, corn, and sugar alcohols. Kitchen notified. Electronically Signed by: Renay Lucas 11/06/21 12:06 Clinical Dietitian [address] [id number]
[2021-11-06] MEDS: LACTATED RINGERS 1,000 ML 150 ML IV ×3 (12:54→20:07)
--- NOTE | 2021-11-06 14:01 | SUR.OPER ---
Supine on padded OR bed, head on pillow, arms secured on padded arm boards at <90 degrees abduction, legs uncrossed, safety belt at thigh, tape over blanket over lower legs.
--- NOTE | 2021-11-06 17:10 | SUR.PHASEI ---
CBG 115 At 1710 hrs.
--- NOTE | 2021-11-06 17:21 | P.OP_ITS ---
Operative Date/Time/Diagnoses Date of procedure: 11/06/21 Time of procedure: 17:21 Pre-op diagnosis: Perforated diverticulitis Post-op diagnosis: same Procedure & Clinicians Procedure: Exploratory laparotomy, colectomy with end colostomy (Nu's) Same procedure as scheduled: Yes Indications: Perforated diverticulitis with peritonitis Surgeon: Chemo Wheeler Anesthesia Type: General Operative Notes Findings: Purulent peritonitis. Multiple sites of mesenteric perforation along the sigmoid mesocolon Specimen(s): other (sigmoid) Estimated Blood Loss (mL): 200 Procedure in detail: Patient was brought to the operating room placed supine on the table. Bilateral lower extremity compression devices were applied. She received Zosyn prior to skin incision. She was prepped and draped sterile fashion. Time-out was performed. A lower midline incision was made the abdomen was entered atraumatically. Upon entry to the abdomen there was a large volume of purulent peritonitis. Cultures were taken the abdomen was copiously lavaged. The abdomen was generally inspected. There was a large abscess within the pelvis p osterior to the bladder that was debreided with blunt dissection. The sigmoid colon was very redundant and its lateral wall attachments were quite attenuated. Following along the white line of Toldt the sigmoid colon was dissected off of the lateral abdominal wall. The dissection was carried up to the level of the spleen but a formal splenic mobilization was not performed. A window within the mesentery was made and the proximal colon was divided using the TUNDE stapler at the level of the descending colon which was soft pliable and without significant diverticulosis. Using sigmoid colon as a handle the mesentery to the sigmoid colon was carefully divided using the LigaSure staying close to the colonic wall. I looked for the left ureter but it was not visible within the extensive abscess, I remained as close to the sigmoid colon as possible to avoid risk of injury. The dissection was carried into the pelvis and the rectum was then mobilized from its lateral stalks. At a point just below the rectosigmoid junction where the bowel was pliable and soft the rectum was transected using the TA stapler. Upon further inspection the rectal stump needed to be resected approximately 2 cm further to better perfused tissue. Stump closed with a running Prolene suture keeping the long tails for future identification. The descending colon easily reached the abdominal wall without tension. A circular incision was made in the skin of the left lower quadrant the muscle fibers were then spread the posterior fascial sheath was divided in cruciate fashion accommodated 2 fingers with ease. The descending colon was then pulled through the abdominal wall and colostomy formed in standard fashion using Vicryl suture. The midline incision was closed with a running PDS suture from above and below. The subcutaneous tissue was reapproximated using 3-0 Vicryl. The skin was closed with eliecer. Patient tolerated the procedure well was transferred to recovery room in stable condition Complications: none Post-operative Condition: stable Disposition: ICU
--- NOTE | 2021-11-06 17:36 | SUR.PHASEI ---
1725 hrs: Pt transported to room 228 with RNs. Report to BONG Camilo.
[2021-11-06] MEDS: PIPERACILLIN/TAZO 3.375 GM in SODIUM CHLORIDE 0.9% 100 ML 25 ML IV (18:08)
--- NOTE | 2021-11-06 18:09 | PC.NURSE ---
Pt arrived from PACU @ 1720, drowsy, denies pain. PIV infusing. Dressing to midline CDI, LLQ fresh stoma, beefy dark red, serosang drainage to pouch. Pt has been up dated on progress from surgery. Faye patent, no urine since arrival to floor. Placed 2nd PIV to R Wrist for ABX use. Pt on 2L on arrival weaned to RA with Spo2 96% Enc DB& C. SCDs in place, Pt has some discomfort with use, reminded about POC for DVT prevention and Pt is too groggy to ankle wave just yet. WCTM
--- NOTE | 2021-11-06 22:58 | PM.CN.EICU ---
History of Present Illness Consult details Chief complaint: Severe Abd pain. Here a week ago-not better Narrative: 61 yo female w recent COVID-19 infection (now negative) and diverticular perforation about 10 days ago for which she was monitored for a day and was sent home as she had no abscess. She returned w inc pain, and was noted to have 8cm abscess on CT. She was taken to the OR where she underwent an exploratory lap which revealed peritonitis. She underwent a partial colectomy (mainly sigmoid), placement of an Ostomy and placement of a hartmnas pouch. She was extubated and transferred to the ICU for close monitoring. Currently she is on RA and not on and vasopressors. In speaking with the patients bedside nurse, patients pain is very well controlled and she doesnt have any complaints. Plan is to sit her at the side of the bed later tonight. [facility] Medical History Anhidrosis BMI 31.0-31.9,adult Chronic fatigue Mikayla-Read infection Facet arthropathy, lumbar Fatigue Mihaela's disease Hemorrhoids Herniated nucleus pulposus, L4-5 Raynaud phenomenon Reactive hypoglycemia Vitamin D deficiency Surgical History Status post cholecystectomy Status post parathyroidectomy Family History Brother Age: 67 Arthritis of knee Essential hypertension High cholesterol Father Stomach cancer Heart disease Essential hypertension High cholesterol Kidney problem Grandfather Heart disease Essential hypertension Stroke Mother Heart disease Essential hypertension High cholesterol Grandfather Heart disease Essential hypertension Grandmother Heart disease Essential hypertension Stroke Social History household members: spouse Smoking Status: Never smoker alcohol intake: never Current Medications Current Medications Medications: Home Medications cholecalciferol (vitamin D3) 50 mcg (2,000 unit) capsule (Vitamin D3) 2,000 unit PO DAILY #0 08/20/17 [History Confirmed 11/06/21] doxycycline monohydrate 40 mg capsule,immediate - delay release (Oracea) 40 mg PO DAILY 10/29/21 [History Confirmed 11/06/21] celecoxib 200 mg capsule (Celebrex) 200 mg PO BID #40 cap 10/30/21 [Rx Confirmed 11/06/21] Visit Medications (administered) Generic Name Dose Route Start Last Admin Trade Name Boom PRN Reason Stop Dose Admin Hydromorphone HCl 1 mg 11/06/21 10:36 11/06/21 22:31 Hydromorphone 1 Mg Inj IV 1 mg Q1H PRN Administration Pain, Severe (7-10) Lactated Ringer's 1,000 mls @ 150 mls/hr 11/06/21 10:45 11/06/21 20:07 Lactated Ringers IV 150 mls/hr CONT MILLA Administration Metronidazole 500 mg in 100 mls @ 100 mls/hr 11/06/21 18:45 11/06/21 20:41 Flagyl IV Infused Q8H MILLA Infusion Piperacillin Sod/Tazobactam 100 mls @ 25 mls/hr 11/06/21 18:15 11/06/21 22:40 Sod 3.375 gm/ Sodium Chloride IV Infused Q8H MILLA Infusion Exam Vital Signs (past 8 hours): - 11/06/21 16:38 11/06/21 16:44 11/06/21 16:48 Temperature 98 F Pulse Rate 95 H 95 H 95 H Respiratory Rate 13 16 10 L Blood Pressure 110/59 L 110/59 L 128/66 Pulse Oximetry 95 95 96 11/06/21 16:53 11/06/21 16:58 11/06/21 17:03 Temperature 97.1 F L Pulse Rate 98 H 96 H 101 H Respiratory Rate 18 13 16 Blood Pressure 119/64 117/63 109/65 Pulse Oximetry 96 95 94 11/06/21 17:25 11/06/21 17:30 11/06/21 18:00 Temperature 97.4 F L Pulse Rate 101 H 99 H 99 H Respiratory Rate 16 17 Blood Pressure 118/63 115/60 112/59 L Pulse Oximetry 92 92 92 11/06/21 19:00 11/06/21 19:01 11/06/21 20:00 Temperature 97.5 F L Pulse Rate 99 H 101 H 102 H Respiratory Rate 18 22 17 Blood Pressure 103/59 L 99/63 Pulse Oximetry 94 94 95 11/06/21 20:01 11/06/21 20:59 11/06/21 21:00 Temperature Pulse Rate 107 H 98 H Respiratory Rate 17 18 Blood Pressure 107/57 L Pulse Oximetry 95 94 93 11/06/21 21:01 11/06/21 22:00 11/06/21 22:05 Temperature Pulse Rate 97 H 106 H 109 H Respiratory Rate 14 16 19 Blood Pressure 95/59 L Pulse Oximetry 93 94 94 Oxygen Delivery Method Room Air Oxygen Flow Rate 2 Objective Labs Result Diagrams: 11/06/21 08:20 11/06/21 08:20 Labs: Laboratory Results - last 24 hr 11/06/21 11/06/21 11/06/21 08:20 08:20 08:20 WBC 27.6 H RBC 4.83 Hgb 14.4 Hct 42.0 MCV 87.0 D MCH 29.7 MCHC 34.2 RDW 15.4 H Plt Count 547 H Neut % (Auto) 94.1 H Lymph % (Auto) 3.7 L [place] % (Auto) 1.7 L Eos % (Auto) 0.2 L Baso % (Auto) 0.3 Neut # (Auto) 71217 H Lymph # (Auto) 1000 L [place] # (Auto) 500 Eos # (Auto) 0 Baso # (Auto) 100 PT INR APTT D-Dimer Sodium 134 L Potassium 3.9 Chloride 102 Carbon Dioxide 27 BUN 20 H Creatinine 0.65 Estimated GFR > 60.0 BUN/Creatinine Ratio 30.8 H Glucose 154 H Lactate Calcium 8.8 Total Bilirubin 2.0 H AST 34 ALT 52 H Alkaline Phosphatase 231 H D Total Creatine Kinase < 20 L CK-MB (CK-2) TNP CK-MB (CK-2) Rel Index TNP Troponin I < 0.012 NT-Pro-B Natriuret Pep 709 H Total Protein 5.9 L Albumin 2.7 L Globulin 3.2 Albumin/Globulin Ratio 0.8 L Lipase 25 Procalcitonin 0.81 H Ur Bilirubin Confirm Urine RBC Urine WBC Urine Bacteria Ur Culture Indicated? Micro UA Comment Nasal Screen MRSA (PCR) SARS-CoV-2 (PCR) 11/06/21 11/06/21 11/06/21 08:20 08:20 08:45 WBC RBC Hgb Hct MCV MCH MCHC RDW Plt Count Neut % (Auto) Lymph % (Auto) [place] % (Auto) Eos % (Auto) Baso % (Auto) Neut # (Auto) Lymph # (Auto) [place] # (Auto) Eos # (Auto) Baso # (Auto) PT 13.8 H INR 1.2 APTT 28 D-Dimer 2267 H Sodium Potassium Chloride Carbon Dioxide BUN Creatinine Estimated GFR BUN/Creatinine Ratio Glucose Lactate 1.4 Calcium Total Bilirubin AST ALT Alkaline Phosphatase Total Creatine Kinase CK-MB (CK-2) CK-MB (CK-2) Rel Index Troponin I NT-Pro-B Natriuret Pep Total Protein Albumin Globulin Albumin/Globulin Ratio Lipase Procalcitonin Ur Bilirubin Confirm Urine RBC Urine WBC Urine Bacteria Ur Culture Indicated? Micro UA Comment Nasal Screen MRSA (PCR) SARS-CoV-2 (PCR) Negative 11/06/21 11/06/21 11/06/21 11:15 12:01 12:01 WBC RBC Hgb Hct MCV MCH MCHC RDW Plt Count Neut % (Auto) Lymph % (Auto) [place] % (Auto) Eos % (Auto) Baso % (Auto) Neut # (Auto) Lymph # (Auto) [place] # (Auto) Eos # (Auto) Baso # (Auto) PT INR APTT D-Dimer Sodium Potassium Chloride Carbon Dioxide BUN Creatinine Estimated GFR BUN/Creatinine Ratio Glucose Lactate Calcium Total Bilirubin AST ALT Alkaline Phosphatase Total Creatine Kinase CK-MB (CK-2) CK-MB (CK-2) Rel Index Troponin I NT-Pro-B Natriuret Pep Total Protein Albumin Globulin Albumin/Globulin Ratio Lipase Procalcitonin Ur Bilirubin Confirm Negative Urine RBC None seen Urine WBC None seen Urine Bacteria None seen Ur Culture Indicated? Cult not indicated Micro UA Comment Microscopic normal Nasal Screen MRSA (PCR) Negative for mrsa SARS-CoV-2 (PCR) Assessment & Plan Assessment and plan (1) Diverticulitis of intestine with perforation and abscess: Status: Acute Plan -Cont current care including abx. Pt may need some fluid boluses for soft BPs. -SQ heparin or lovenox for DVT prophlaxis when OK from a surgical standpoint Time Spent With Patient Critical Care time: I spent a total of [] minutes of critical care time on this patient's care today; this time is exclusive of procedural time.
[2021-11-07] MEDS: LACTATED RINGERS 1,000 ML 150 ML IV ×3 (01:57→21:59)
[2021-11-07] MEDS: PIPERACILLIN/TAZO 3.375 GM in SODIUM CHLORIDE 0.9% 100 ML 25 ML IV ×2 (01:58→17:59)
[2021-11-07] MEDS: metroNIDAZOLE 500 MG/100 ML PIGGYBACK 100 MG IV (01:59)
[2021-11-07] MEDS: HYDROMORPHONE 1 MG INJ IV ×7 (03:26→22:00)
[2021-11-07 04:00] VITALS: BP 116/63; PULSE 87; RESP 21; TEMP 36.6; O2SAT 97
--- NOTE | 2021-11-07 05:09 | PC.NURSE ---
Shift note: Pt PO day #1 colectomy with colostomy. VSS, maintaining O2Sats on room air, taking ice chips po without difficulty. Pt had one episode of tachycardia, rate 125 that lasted approximately 40 minutes. Medicated for pain and repositioned for comfort and HR returned to the 80's. Midline dressing dry and intact, Jayme drains with serosangenous drainage total 115ml for this 12 hrs. Faye to straight drainage. IV of LR @ 150/hr maintained thru the night. Dangled on the bedside for 10 minutes early in the shift and tolerated it well. Using IS appropriately achieving 1500ccs.
[2021-11-07 05:10] LABS: Hematocrit 37.1 % (36-46); Hemoglobin 12.4 g/dL (12.0-16.0); Mean Corpuscular HGB Conc 33.4 % (30-36); Mean Corpuscular Hemoglobin 29.7 PG (26-34); Platelet Count 421 X10^3/uL (150-400); Red Blood Cell Count 4.17 X10^6/uL (4.0-5.2); White Blood Cell Count 28.5 X10^3/uL (4.5-11.0)
[2021-11-07 05:11] LABS: Add Manual Diff / Slide Review YES
[2021-11-07 05:19] LABS: BUN Creatinine Ratio 30.9 (6-22); Blood Urea Nitrogen 21 mg/dL (7-17); Calcium 8.7 mg/dL (8.4-10.2); Carbon Dioxide 32 mmol/L (22-32); Chloride 103 mmol/L (98-107); Estimated Glomerular Filt Rate > 60.0 mL/min (>60); Glucose 121 mg/dL (80-110); HEMOLYSIS < 15 (0-50); Magnesium 2.2 mg/dL (1.6-2.3); Phosphorous 4.4 mg/dL (2.8-4.1); Potassium 4.6 mmol/L (3.4-5.1); Sodium 136 mmol/L (137-145)
[2021-11-07] MEDS: LORazepam 2 MG/ML INJ 0.5 MG IV (06:17)
[2021-11-07 07:09] LABS: Anisocytosis 1+; Neutrophils Absolute Manual 27645 /uL (3000-5900); Total Cells Counted 100
[2021-11-07 08:00] VITALS: BP 103/59; PULSE 87; RESP 11; TEMP 37.1; O2SAT 97
[2021-11-07] MEDS: PIPERACILLIN/TAZO 3.375 GM in SODIUM CHLORIDE 0.9% 100 ML 200 ML IV (11:13)
--- NOTE | 2021-11-07 12:12 | P.TELICUPN_ITS ---
Subjective Subjective :: This patient was seen via real time interactive two-way audiovisual telecommunication. POD 0 no new compalints pain appropriate Current Medications Current Medications Medications: Home Medications cholecalciferol (vitamin D3) 50 mcg (2,000 unit) capsule (Vitamin D3) 2,000 unit PO DAILY #0 08/20/17 [History Confirmed 11/06/21] doxycycline monohydrate 40 mg capsule,immediate - delay release (Oracea) 40 mg PO DAILY 10/29/21 [History Confirmed 11/06/21] celecoxib 200 mg capsule (Celebrex) 200 mg PO BID #40 cap 10/30/21 [Rx Confirmed 11/06/21] Visit Medications (administered) Generic Name Dose Route Start Last Admin Trade Name Freq PRN Reason Stop Dose Admin Hydromorphone HCl 1 mg 11/06/21 10:36 11/07/21 11:06 Hydromorphone 1 Mg Inj IV 1 mg Q1H PRN Administration Pain, Severe (7-10) Lactated Ringer's 1,000 mls @ 150 mls/hr 11/06/21 10:45 11/07/21 11:12 Lactated Ringers IV Infused CONT MILLA Infusion Piperacillin Sod/Tazobactam 100 mls @ 25 mls/hr 11/06/21 18:15 11/07/21 11:13 Sod 3.375 gm/ Sodium Chloride IV 200 mls/hr Q8H MILLA Administration Lorazepam 0.5 mg 11/06/21 15:32 11/07/21 06:17 Lorazepam 2 Mg/Ml Inj IV 0.5 mg NOW PRN Administration Anxiety Objective Labs Result Diagrams: 11/07/21 04:15 11/07/21 04:15 Labs: Laboratory Results - last 24 hr 11/06/21 11/07/21 11/07/21 11:15 04:15 04:15 WBC 28.5 H RBC 4.17 Hgb 12.4 Hct 37.1 MCV 89.0 MCH 29.7 MCHC 33.4 RDW 16.0 H Plt Count 421 H Neut % (Auto) Not Reportable Lymph % (Auto) Not Reportable [place] % (Auto) Not Reportable Eos % (Auto) Not Reportable Baso % (Auto) Not Reportable Lymph # (Auto) Not Reportable [place] # (Auto) Not Reportable Baso # (Auto) Not Reportable Total Counted 100 Seg Neutrophils % 91.0 H Band Neutrophils % 6.0 Lymphocytes % (Manual) 3.0 L Neutrophils # (Manual) 98653 H RBC Morphology Not Reportable Anisocytosis 1+ H Sodium 136 L Potassium 4.6 Chloride 103 Carbon Dioxide 32 BUN 21 H Creatinine 0.68 Estimated GFR > 60.0 BUN/Creatinine Ratio 30.9 H Glucose 121 H Calcium 8.7 Phosphorus 4.4 H Magnesium 2.2 Nasal Screen MRSA (PCR) Negative for mrsa Exam Vital Signs (past 8 hours): - 11/07/21 08:00 Temperature 98.7 F Pulse Rate 87 Respiratory Rate 11 L Blood Pressure 103/59 L Pulse Oximetry 97 Oxygen Delivery Method Room Air Oxygen Flow Rate 0 Quality TeleICU VTE Deep Vein Thrombosis/Pulmonary Embolism Present on Admission: No Assessment & Plan Assessment & Plan narrative: 61 year old female s/p Ex-lap for perforated diverticulitis with abscess washout and resection afebrile, HD stable mildly tachycardic good urineoutput plan -cont inuve IVF -monitor ins/outs -zosyn can dc flagyl, chec cxs -gi/dvt ppx -keep glucose 140-180s -primary care per surgery team please call teleICU prn Time Spent With Patient Critical Care time: I spent a total of [] minutes of critical care time on this patient's care today; this time is exclusive of procedural time.
--- NOTE | 2021-11-07 13:10 | PT.IIE ---
Current Diagnoses Diverticulitis of intestine, part unspecified, with perforation and abscess without bleeding (11/06/21) Peritonitis, unspecified (11/06/21) Surgery Performed Operation Date: 11/06/21 11:00 Actual Procedures p Exploratory Laparotomy GEN, COLECTOMY, OSTOMY(Not Applicable) - Chemo Wheeler MD Surgical History (Last Reviewed 11/06/21 @ 08:18 by Zaria Villalobos DO) Status post cholecystectomy Status post parathyroidectomy Medical History (Last Reviewed 11/06/21 @ 08:18 by Zaria Villalobos DO) Anhidrosis BMI 31.0-31.9,adult Chronic fatigue Mikayla-Read infection Facet arthropathy, lumbar Fatigue Mihaela's disease Hemorrhoids Herniated nucleus pulposus, L4-5 Raynaud phenomenon Reactive hypoglycemia Vitamin D deficiency Physical Therapy Inpatient Evaluation/Re-Eval M1 PT/OT-IP Prior Functional Status Start: 11/07/21 14:18 Freq: NEEDED Status: Active Protocol: Document 11/07/21 13:10 AB (Rec: 11/07/21 14:32 AB [id number]) Medical Review Prior Functional Status Medical History Reviewed Yes Communication able to make needs known Mobility and Gait pt stated that she is independent with all mobilities and ambulation without AD Social History Household Members spouse Living Arrangements House Number of Floors (Floors) 3 or More Floors Number of Stairs To Enter/Railing? pt lives in a split level house: 3 steps L rail to enter the house; 22 steps with L rail ascending to bedroom level. Home Environment High Toilet,Tub/Shower Home Equipment Front Wheel Walker,Bedside Commode,Shower Seat with Backrest,Hand Held Shower Additional Social History Comment pt has an adjustable bed pt lives with her spouse and daughter but both goes to work and pt is usually alone at home. M2 PT-IP Current Condition Start: 11/07/21 14:18 Freq: NEEDED Status: Active Protocol: Document 11/07/21 13:10 AB (Rec: 11/07/21 14:32 AB [email or web address]) Physical Therapy Current Condition Current Condition Evaluation Date 11/07/21 Treatment Diagnosis s/o colectomy with colostomy; difficulty in walking Onset Date 11/06/21 M3 PT-IP Subjective Start: 11/07/21 14:18 Freq: NEEDED Status: Active Protocol: Document 11/07/21 13:10 AB (Rec: 11/07/21 14:32 AB [email or web address]) Subjective Physical Therapy Visit Type Type Initial Evaluation Visit Start Time 13:10 Visit Stop Time 14:06 Total Visit Minutes 56 Number of MEDICATION MANAGER Visits 0 Physical Therapy Visit Comments Patient Comments able to make needs known Therapy Pain Assessment Pain When Pain Assessed At Rest Pain Present Pain Present Pain Reported Location abdomen Intensity 6 Scale Used increases to 8/10 with mobility Pain Management Techniques Distraction,Modification of Treatment,Re-positioning M4 PT-IP Mobility and Gait Start: 11/07/21 14:18 Freq: NEEDED Status: Active Protocol: Document 11/07/21 13:10 AB (Rec: 11/07/21 14:32 AB [email or web address]) PT-Bed Mobility Assessment Rolling Type of Rolling Log Rolling Level of Assist Maximal Assistance Supine to Sit Supine to Sit Maximum Assistance PT-Transfer Assessment Sit to and From Stand Sit to and from Stand Maximum Assistance,1 Person Assistance,2 Person Assistance ,Use of Upper Extremities Equipment Transfer Assistive Device Gait Belt,Front Wheeled Walker Orthotic/Prosthetic Devices or Brace: No Transfers Transfer Destination Chair Transfer Technique Stand Step Pivot Transfer Ability Level of Assist Maximum Assistance,1 Person Assistance,2 Person Assistance ,Use of Upper Extremities Comments Mobility Comments educated pt on abdominal precautions and log roll bed mobility. pt completed supine to sit log roll with HOB elevated per pt's request (pt has an adjustabel bed at home) max A and max cues. pt was able to sit on EOB CGA with increase posterior trunk lean and c/o increase abdominal pain. informed pt regarding pain medication prior to mobility but did not want any prior but during mobility c/o increase pain and wants pain meds first prior to transfer. nurse gave pt pain meds. pt completed sit to stand max A x 1-2 and max cues. instructed to use FWW for support but pt was only able to hold on to R and stated that lower abdomen is painful and heavy and needs hold on lower abdomen with LUE to support. completed step transfer using fWW max A x 1-2 and max cues. positioned pt on chair. call light and table placed within reach. PT-Balance Assessment Sitting Balance and Reactions Static Sitting Balance Ability Fair Dynamic Sitting Balance Ability Poor Standing Balance and Reactions Static Standing Balance Ability Poor Dynamic Standing Balance Ability Poor Device Used FWW M5 PT-IP Objective Assessments Start: 11/07/21 14:18 Freq: NEEDED Status: Active Protocol: Document 11/07/21 13:10 AB (Rec: 11/07/21 14:32 AB [email or web address]) Orientation Orientation/Cognition Level of Alertness Alert Orientation Name,Place,Situation Language Function Ability No Deficits Noted Safety Awareness Decreased Safety Awareness Memory Description No Deficits Noted,Short Term Impaired Gross Range of Motion Lower Extremity ROM Assessment Within Functional Limits Strength Lower Extremity Strength Hip 3+/5 Knee 4-/5 Sensation Assessment Sensation Gross Sensation WNL Muscle Tone Muscle Tone WNL Yes M6 PT-IP Treatment Start: 11/07/21 14:18 Freq: NEEDED Status: Active Protocol: Document 11/07/21 13:10 AB (Rec: 11/07/21 14:32 AB [email or web address]) Physical Therapy Treatment Education Education Provided Precautions,Weight Bearing Status,Safety M7 PT-IP Assessment and Plan Start: 11/07/21 14:18 Freq: NEEDED Status: Active Protocol: Document 11/07/21 13:10 AB (Rec: 11/07/21 14:32 AB [email or web address]) PT Summary Assessment and Plan Potential Rehabilitation Potential Good Status of Condition at Evaluation Evolving Summary Impairments Pain,ROM,Strength,Balance, Coordination,Sensation,Tone, Cognition,Bed Mobility, Transfers,Gait,Activity Tolerance Assessment Summary pt requiring max A 1-2 and max cues and c/o increase abdominal pain affecting mobility and activity tolerance. pt may require SNF rehab to improve strength and mobility at this time. will assess progress and when appropriate, will conduct caregiver training and stair climbing training. Goals Bed Mobility Goal Independent Transfer Goal Independent,Front Wheeled Walker Gait Goal Independent,Front Wheel Walker Gait Distance 200 Other Goals improve ambulation without AD ~ 300 ft SBA up/down 22 steps L rail asceding SBA Days to Meet Goals 10 Frequency of Treatment Frequency Of Treatment Once a Day Treatment Plan Physical Therapy Treatment Plan Bed Mobility Training,Transfer Training,Gait Training, Therapeutic Exercise,Balance Retraining,Post Op Education, Discharge Planning,Hot or Cold Pack,Neuromuscular Re-ed, Coordination Retraining,Manual Therapy Precautions Abdominal Surgery Precautions Log Roll,Lifting Restrictions, Gait Belt above Incisional Area Recommendations To Nursing Amount of Assist Needed 2 Person Assist Discharge Recommendations PT Discharge Recommendations Home with 24/ Assist Available,Home Health,SNF Rehab,Home vs SNF Transportation Needs at Discharge Private Vehicle,Wheelchair/ Cabulance
[2021-11-07 13:30] VITALS: BP 104/59; PULSE 110; RESP 19; TEMP 36.5; O2SAT 96
--- NOTE | 2021-11-07 13:50 | P.PN_ITS ---
Subjective Subjective Date Patient Seen: 11/07/21 Time Patient Seen: 13:50 Interval history: No major events. Pain controlled. No nausea tolerating sips of clears. Exam Vital Signs (past 8 hours): - 11/07/21 08:00 Temperature 98.7 F Pulse Rate 87 Respiratory Rate 11 L Blood Pressure 103/59 L Pulse Oximetry 97 Oxygen Delivery Method Room Air Oxygen Flow Rate 0 Narrative Exam Narrative: Gen-Adult woman alert and oriented Chest-Non labored Abdomen-Soft, appropriately tender. Drains SS. Colostomy edematous perfused. Objective Labs Result Diagrams: 11/07/21 04:15 11/07/21 04:15 Labs: Laboratory Results - last 24 hr 11/07/21 11/07/21 04:15 04:15 WBC 28.5 H RBC 4.17 Hgb 12.4 Hct 37.1 MCV 89.0 MCH 29.7 MCHC 33.4 RDW 16.0 H Plt Count 421 H Neut % (Auto) Not Reportable Lymph % (Auto) Not Reportable [place] % (Auto) Not Reportable Eos % (Auto) Not Reportable Baso % (Auto) Not Reportable Lymph # (Auto) Not Reportable [place] # (Auto) Not Reportable Baso # (Auto) Not Reportable Total Counted 100 Seg Neutrophils % 91.0 H Band Neutrophils % 6.0 Lymphocytes % (Manual) 3.0 L Neutrophils # (Manual) 93959 H RBC Morphology Not Reportable Anisocytosis 1+ H Sodium 136 L Potassium 4.6 Chloride 103 Carbon Dioxide 32 BUN 21 H Creatinine 0.68 Estimated GFR > 60.0 BUN/Creatinine Ratio 30.9 H Glucose 121 H Calcium 8.7 Phosphorus 4.4 H Magnesium 2.2 PFSH Medical History Anhidrosis BMI 31.0-31.9,adult Chronic fatigue Mikayla-Read infection Facet arthropathy, lumbar Fatigue Mihaela's disease Hemorrhoids Herniated nucleus pulposus, L4-5 Raynaud phenomenon Reactive hypoglycemia Vitamin D deficiency Surgical History Status post cholecystectomy Status post parathyroidectomy Family History Brother Age: 67 Arthritis of knee Essential hypertension High cholesterol Father Stomach cancer Heart disease Essential hypertension High cholesterol Kidney problem Grandfather Heart disease Essential hypertension Stroke Mother Heart disease Essential hypertension High cholesterol Grandfather Heart disease Essential hypertension Grandmother Heart disease Essential hypertension Stroke Social History household members: spouse Smoking Status: Never smoker alcohol intake: never Assessment & Plan Post-op Postoperative Procedures: Procedures Operation Date: 11/06/21 11:00 Actual Procedure Side Surgeon p Exploratory Laparotomy GEN, COLECTOMY, OSTOMY Not Applicable Chemo Wheeler MD Postoperative status narrative: 61 y.o woman POD 1 sp Schmidt's for perforated diverticulitis. Hemodynamics have improved since surgery, tachycardia resolved, good urine output. -Clears advance when ostomy functioning -Continue Zosyn total of 5 days for intra abdominal infection. Follow up cultures -SCDs and pLovenox -Ostomy teaching Quality VTE Deep Vein Thrombosis/Pulmonary Embolism Present on Admission: No
--- NOTE | 2021-11-07 16:02 | DIET.PN1 ---
Dietary Progress Note Assessment: 61y F admitted for perforated sigmoid diverticulitis resulting in Nu procedure colectomy c colostomy. Pt tolerating clears, avoids gluten, wheat, corn, coconut, canola and sugar alcohols. Pt reports having seen many providers regarding her quick GI transit time of late. Pt has some anxieties about not making it home in time for [place], but understands she will be d/c'd when safe and appropriate. Ht: 168.91 cm Wt: 89 kg BMI: 31.0 Last BM: 10/31/21 (11/06/21 12:44) MNA: 14 Seven Score: 23 Diet: 11/06/21 Dinner Clear Liquid Diet Diet Modifications: Nutrition Percent Meal Consumed wanted to rest, didnt want lunch 11/07/21 12:00 Percent Meal Consumed 25% 11/07/21 09:00 Labs: RBC 4.17 X10^6/uL (4.0-5.2) 11/07/21 04:15 Hgb 12.4 g/dL (12.0-16.0) 11/07/21 04:15 Hct 37.1 % (36-46) 11/07/21 04:15 Creatinine 0.68 mg/dL (0.52-1.04) 11/07/21 04:15 Lactate 1.4 mmol/L (0.7-2.1) 11/06/21 08:20 NT-Pro-B Natriuret Pep 709 pg/mL (<125) H 11/06/21 08:20 Nutrition Diagnosis: nutrition related knowledge deficit r/t altered GI function (new colostomy) aeb perforated sigmoid diverticulitis requiring colostomy. Interventions: 1. Provided pt Colostomy Nutrition Therapy packet. Pt too tired to read today but will review tomorrow morning and RD to follow up in afternoon. Spent 30 minutes c pt discussing nutrition for colostomy. Pt had many questions considering hasn't looked at handout yet, however, RD discussed with pt and answered questions to pts satisfaction. 2. When pt tolerating clears, recc advancing as tolerated clears --> full liquid --> soft, low residue diet please add in qualifiers for all diets: no gluten, wheat, corn, coconut, canola, sugar alcohols EER: 2200kcals (25kcal/kg), 100g PRO (1.3g/kg post surgical) Monitoring/Evaluations: RD f/u Saturday for continued teaching on colostomy nutrition. Electronically Signed by: Renay Lucas 11/07/21 16:02 Clinical Dietitian [address] [id number]
[2021-11-07 17:00] VITALS: BP 117/48; PULSE 97; RESP 16; TEMP 36.3; O2SAT 97
--- NOTE | 2021-11-07 18:08 | PC.NURSE ---
Am shift Pt has had pain control difficulties this shift. 1mg IV Dilaudid given, Pt becomes drowasy, then is hesitant to mobilize. I dont need to get out of bed today, do I? With substantial encouragement, Pt is up to chair, requesting premedication prior to mobility during next move. 2PA with FWW. Midline dressing is CDI, x2 Jayme drains to ABD with sero sang output of 40mls and 100mls. New Colostomy to LLQ is beefy red and serosang drainage collecting, no gas or stool noted. BT absent at this time. Some belching noted, no flatus. Enc IS with 1500 10x/hr. Faye remains patent, hematuria and clouding to collected urine. Culture is + covering Zosyn, Flagyl is d/c at this time. Pt has been upgraded to floor care status. Tele dc'd for move to 207. Report given to Summer Cruz. at bedside and updated on POC.
[2021-11-07 20:10] VITALS: BP 120/63; PULSE 97; RESP 16; TEMP 36.9; O2SAT 96
[2021-11-07] MEDS: PANTOPRAZOLE 40 MG VIAL IV (20:11)
[2021-11-07] MEDS: CALCIUM CARBONATE 500 MG TAB 1000 MG PO (20:12)
[2021-11-07 22:38] VITALS: O2SAT 91
[2021-11-08 02:00] VITALS: BP 114/70; PULSE 93; RESP 14; TEMP 37.2; O2SAT 94
[2021-11-08] MEDS: HYDROMORPHONE 1 MG INJ IV ×5 (02:03→21:43)
[2021-11-08] MEDS: PIPERACILLIN/TAZO 3.375 GM in SODIUM CHLORIDE 0.9% 100 ML 25 ML IV ×3 (02:03→18:27)
[2021-11-08] MEDS: LACTATED RINGERS 1,000 ML 150 ML IV (04:42)
[2021-11-08 06:00] VITALS: RESP 18
[2021-11-08 06:55] LABS: Hematocrit 32.9 % (36-46); Hemoglobin 10.9 g/dL (12.0-16.0); Mean Corpuscular HGB Conc 33.3 % (30-36); Mean Corpuscular Hemoglobin 29.4 PG (26-34); Mean Corpuscular Volume 88.3 fL (80-100); Platelet Count 569 X10^3/uL (150-400); Red Blood Cell Count 3.72 X10^6/uL (4.0-5.2); Red Cell Distribution Width 15.8 % (11.6-14.8); White Blood Cell Count 21.4 X10^3/uL (4.5-11.0)
[2021-11-08 06:56] LABS: Add Manual Diff / Slide Review YES
[2021-11-08 07:00] LABS: Blood Urea Nitrogen 18 mg/dL (7-17); Calcium 8.6 mg/dL (8.4-10.2); Carbon Dioxide 31 mmol/L (22-32); Chloride 105 mmol/L (98-107); Estimated Glomerular Filt Rate > 60.0 mL/min (>60); Glucose 87 mg/dL (80-110); HEMOLYSIS < 15 (0-50); Magnesium 1.9 mg/dL (1.6-2.3); Phosphorous 3.2 mg/dL (2.8-4.1); Potassium 3.8 mmol/L (3.4-5.1); Sodium 135 mmol/L (137-145)
[2021-11-08] MEDS: ENOXAPARIN 40 MG/0.4 ML SYRINGE SUBCUT (08:10)
[2021-11-08] MEDS: polyethylene glycoL 3350 17 GM POWD.PACK PO (08:11)
[2021-11-08] MEDS: PANTOPRAZOLE 40 MG VIAL IV ×2 (08:11→21:32)
[2021-11-08 08:26] VITALS: BP 129/79; PULSE 125; RESP 18; TEMP 37.4; O2SAT 93
--- NOTE | 2021-11-08 08:26 | P.PN_ITS ---
Subjective Subjective Date Patient Seen: 11/08/21 Time Patient Seen: 08:31 Interval history: No significant overnight events. Tolerated small volume of clear liquids yesterday. No ostomy output. Exam Vital Signs (past 8 hours): - 11/08/21 02:00 11/08/21 06:00 Temperature 98.9 F Pulse Rate 93 H Respiratory Rate 14 18 Blood Pressure 114/70 Pulse Oximetry 94 Oxygen Delivery Method Room Air Oxygen Flow Rate 0 Narrative Exam Narrative: Gen-Adult woman alert and oriented Abdomen-Soft. Midline incision CDI with eliecer. Colostomy viable no stool or air. Drains -SS Objective Labs Result Diagrams: 11/08/21 06:20 11/08/21 06:20 Labs: Laboratory Results - last 24 hr 11/08/21 11/08/21 06:20 06:20 WBC 21.4 H RBC 3.72 L Hgb 10.9 L Hct 32.9 L MCV 88.3 MCH 29.4 MCHC 33.3 RDW 15.8 H Plt Count 569 H Neut % (Auto) Not Reportable Lymph % (Auto) Not Reportable [place] % (Auto) Not Reportable Eos % (Auto) Not Reportable Baso % (Auto) Not Reportable Lymph # (Auto) Not Reportable [place] # (Auto) Not Reportable Baso # (Auto) Not Reportable Sodium 135 L Potassium 3.8 Chloride 105 Carbon Dioxide 31 BUN 18 H Creatinine 0.58 Estimated GFR > 60.0 BUN/Creatinine Ratio 31.0 H Glucose 87 Calcium 8.6 Phosphorus 3.2 D Magnesium 1.9 PFSH Medical History Anhidrosis BMI 31.0-31.9,adult Chronic fatigue Mikayla-Read infection Facet arthropathy, lumbar Fatigue Mihaela's disease Hemorrhoids Herniated nucleus pulposus, L4-5 Raynaud phenomenon Reactive hypoglycemia Vitamin D deficiency Surgical History Status post cholecystectomy Status post parathyroidectomy Family History Brother Age: 67 Arthritis of knee Essential hypertension High cholesterol Father Stomach cancer Heart disease Essential hypertension High cholesterol Kidney problem Grandfather Heart disease Essential hypertension Stroke Mother Heart disease Essential hypertension High cholesterol Grandfather Heart disease Essential hypertension Grandmother Heart disease Essential hypertension Stroke Social History household members: spouse Smoking Status: Never smoker alcohol intake: never Assessment & Plan Post-op Postoperative Procedures: Procedures Operation Date: 11/06/21 11:00 Actual Procedure Side Surgeon p Exploratory Laparotomy GEN, COLECTOMY, OSTOMY Not Applicable Chemo Wheeler MD Postoperative status narrative: 61 y.o woman POD 2 sp melgar's for perforated diverticulitis. Leukocytosis resolving. She is progressing. -Post operative ileus-Clear liquid diet await return of bowel function. Out of bed ambulation. -Intra abdominal infection. Cultures E. Coli. Continue Zosyn -Colostomy-Teaching -SCDs and pLovenox -Remove nam Quality VTE Deep Vein Thrombosis/Pulmonary Embolism Present on Admission: No
[2021-11-08 08:31] LABS: Hypochromasia 1+; Neutrophils Absolute Manual 18832 /uL (3000-5900); Total Cells Counted 100
[2021-11-08] MEDS: LORazepam 0.5 MG TABLET PO ×3 (08:51→18:46)
[2021-11-08] MEDS: NYSTATIN SUSP 500,000 UNIT/5 ML UDC 500000 UNIT PO ×3 (08:51→21:32)
[2021-11-08 11:30] VITALS: BP 131/75; PULSE 134; RESP 16; TEMP 36.6; O2SAT 95
--- NOTE | 2021-11-08 11:47 | PT.IPTN ---
Addendum entered and electronically signed by Chrissie Benedict, SULEIMAN 11/08/21 17:19: Vitals during tx: supine: 131/ 75 HR 135, 95% on RA. Original Note: Current Diagnoses Diverticulitis of intestine, part unspecified, with perforation and abscess without bleeding (11/06/21) Peritonitis, unspecified (11/06/21) Surgery Performed Operation Date: 11/06/21 11:00 Actual Procedures p Exploratory Laparotomy GEN, COLECTOMY, OSTOMY(Not Applicable) - Chemo Wheeler MD Physical Therapy Treatment Note M2 PT-IP Current Condition Start: 11/07/21 14:18 Freq: NEEDED Status: Active Protocol: Document 11/08/21 10:28 SP (Rec: 11/08/21 15:29 SP [id number]) Physical Therapy Current Condition Current Condition Evaluation Date 11/07/21 Treatment Diagnosis s/o colectomy with colostomy; difficulty in walking Onset Date 11/06/21 M3 PT-IP Subjective Start: 11/07/21 14:18 Freq: NEEDED Status: Active Protocol: Document 11/08/21 10:28 SP (Rec: 11/08/21 15:29 SP [id number]) Subjective Physical Therapy Visit Type Type Treatment Note Visit Start Time 11:21 Visit Stop Time 11:47 Total Visit Minutes 36 Notes Pt seen for split tx secondary to abdominal pain: [id number], [id number]. Number of UNDERCUTTER OPERATOR Visits 1 Physical Therapy Visit Comments Patient Comments Pt initially agreeable to working with therapy then requested return after ask for further medication. Therapy Pain Assessment Pain When Pain Assessed At Rest Pain Present Pain Present Pain Reported Location abdomen Intensity 6 Scale Used increased 8/10 with mobiltiy Description With Movement Pain Behaviors Facial Grimacing,Guarding, Holding Area,Wincing Pain Management Techniques Distraction,Modification of Treatment,Re-positioning M4 PT-IP Mobility and Gait Start: 11/07/21 14:18 Freq: NEEDED Status: Active Protocol: Document 11/08/21 10:28 SP (Rec: 11/08/21 15:29 SP [id number]) PT-Bed Mobility Assessment Rolling Type of Rolling Log Rolling Level of Assist Minimal Assistance,1 Person Assistance Supine to Sit Supine to Sit Maximum Assistance,1 Person Assistance,Bedrails Scooting Scooting to Edge of Bed Contact Guard Assistance PT-Transfer Assessment Sit to and From Stand Sit to and from Stand Moderate Assistance,1 Person Assistance,Use of Upper Extremities Equipment Transfer Assistive Device Gait Belt,Front Wheeled Walker Orthotic/Prosthetic Devices or Brace: No Transfers Transfer Destination Chair Transfer Technique Stand Step Pivot Transfer Ability Level of Assist Minimal Assistance,1 Person Assistance,Use of Upper Extremities Comments Mobility Comments Pt tends to lead tx and prefers to not be in pain pre mobility, provided education on may not have no pain during mobility but provided benefits of mobilizing for functional strength. Pt good recall to abdominal precautions. Pt tends to direct LR R with knees bent and RUE on bed rail Min A for trunk assist while self held pillow against abdomen LUE, R SL>sit wi RUE/ LUE braced pillow abdomen Max A x1 for trunk righting and cues for LE self repositioning, scoot to EOB CGA. Seated at EOB BUE supporting self. Sit>stand Mod A x1 with cues for improved upright posture as can and push from bed. CG- Min A for standing balance and improved upright posture (due to flex trunk posturing) as best can while using FWW for support, SPT bed>cahir cues for staying within FWW and repositioning FWW fully backing up Min A for carryover. Stand>sit cued 1UE self descent on chair arms while other braced pillow at abdomen, Min A. Pt able to scoot back in chair self using chair arms. UNDERCUTTER OPERATOR assisted elevation BLE per pt request and pillow under BLE and at back/head. Pt had call light and all needs in reach. UNDERCUTTER OPERATOR educated pt that may experience pain during mobiltiy but with medication assist as needed and importance of mobilizing for functional strengthen, circulation and awareness of breath during stationary positions for assist with relaxation and pain control with good feedback during performance while reclined in chair, utilized inspirometer as well properly. UNDERCUTTER OPERATOR discussed with CONTINUITY DIRECTOR/nurse may need call light for safety, fall risk. Gait Assessment Gait Gait Assistance Required: Minimum Assistance,1 Person Assist Distance (Feet) 2 Able to Maintain Weight Bearing Status Yes During Gait Assistive Devices Assistive Device Gait Belt,Front Wheeled Walker Orthotic/Prosthetic Devices or Brace: No Gait Deviations General Gait Pattern Antalgic,Decreased Stride Length,Decreased Feet Clearance,Flexed Trunk,Narrow Based Gait,Step-to Gait Factors Limiting Gait Function Factors Limiting Gait Function Decreased Activity Tolerance, Decreased Strength,Pain,Poor Balance,Poor Safety Awareness Comments Gait Comments see mobility comments Stair Climbing Assessment Comments Stair Climbing Comments Unable to assess due to pain, decreased strength. Will need to complete 3 step L HR enter home, 22 stairs L HR to bedroom. PT-Balance Assessment Sitting Balance and Reactions Static Sitting Balance Ability Fair Dynamic Sitting Balance Ability Fair Standing Balance and Reactions Static Standing Balance Ability Fair Dynamic Standing Balance Ability Poor Device Used FWW M5 PT-IP Objective Assessments Start: 11/07/21 14:18 Freq: NEEDED Status: Active Protocol: Document 11/07/21 13:10 AB (Rec: 11/07/21 14:32 AB [id number]) Orientation Orientation/Cognition Level of Alertness Alert Orientation Name,Place,Situation Language Function Ability No Deficits Noted Safety Awareness Decreased Safety Awareness Memory Description No Deficits Noted,Short Term Impaired Gross Range of Motion Lower Extremity ROM Assessment Within Functional Limits Strength Lower Extremity Strength Hip 3+/5 Knee 4-/5 Sensation Assessment Sensation Gross Sensation WNL Muscle Tone Muscle Tone WNL Yes M6 PT-IP Treatment Start: 11/07/21 14:18 Freq: NEEDED Status: Active Protocol: Document 11/07/21 13:10 AB (Rec: 11/07/21 14:32 AB [id number]) Physical Therapy Treatment Education Education Provided Precautions,Weight Bearing Status,Safety M7 PT-IP Assessment and Plan Start: 11/07/21 14:18 Freq: NEEDED Status: Active Protocol: Document 11/08/21 10:28 SP (Rec: 11/08/21 17:18 SP [id number]) PT Summary Assessment and Plan Potential Rehabilitation Potential Good Status of Condition at Evaluation Evolving Summary Impairments Pain,ROM,Strength,Balance, Coordination,Sensation,Tone, Cognition,Bed Mobility, Transfers,Gait,Activity Tolerance Progress Towards Goals Progressing Toward Goals,Slow Progress due to Pain,Slow Progress due to Activity Tolerance Assessment Summary Pt self limits mobility with report of pain. Pt requires Max A for bed mob, Min-Mod A for transfers, unable to progress gait due to pain beyond SPT bed>chair. UNDERCUTTER OPERATOR educated pt importance of progressing mobility and medication assist needed to increased funtional mobility independence. Pt reported I wish they didn't take outmy catheter because I will have to get out of bed more. Will continue to assess progress. Pt will require SNF at this time due to decreased strength , pain for functional mobiltiy . Goals Bed Mobility Goal Independent Transfer Goal Independent,Front Wheeled Walker Gait Goal Independent,Front Wheel Walker Gait Distance 200 Other Goals improve ambulation without AD ~ 300 ft SBA up/down 22 steps L rail asceding SBA Days to Meet Goals 10 Frequency of Treatment Frequency Of Treatment Once a Day Treatment Plan Physical Therapy Treatment Plan Bed Mobility Training,Transfer Training,Gait Training, Therapeutic Exercise,Balance Retraining,Post Op Education, Discharge Planning,Hot or Cold Pack,Neuromuscular Re-ed, Coordination Retraining,Manual Therapy Other Recommendations and Next Treatment bed mob, transfers, further Focus distance gait. Will need to complete 3 stair mgt + 22 stair mgt L HR to DC home safetly. Precautions Abdominal Surgery Precautions Log Roll,Lifting Restrictions, Gait Belt above Incisional Area Weight Bearing Status Weight Bearing Status Full Weight Bearing Recommendations To Nursing Amount of Assist Needed 1 Person Assist Discharge Recommendations PT Discharge Recommendations Home with / Assist Available,Home Health,SNF Rehab,Home vs SNF Transportation Needs at Discharge Private Vehicle,Wheelchair/ Cabulance
--- NOTE | 2021-11-08 14:30 | CM.DANOTE ---
DCP Assessment: patient is 61 yr old female who was admitted for Perforated diverticulitis- underwent a colectomy with colostomy preformed by Dr tovar. CM met with patient in her room. she was sitting up in a chair. Patient was alert and oriented x3 but was very groggy from medication. patient stated she was in pain but was okay sitting up. patient currently lives with [place] she is disabled but is usually Independent with ADLs and drives. Patient is concerned with stairs because she has 22 stairs inside her house to get to the top floor. patients is going to move her bed down from the top floor down to the main floor to help with her recovery. Patient expressed concerns about how much her bill would be after her [facility] pain and asked for a ho care application. CM gave the patient that application along with [facility] hand out for her review. F2F placed in patients red chart waiting for MD signature. PT recommends home with HH VS SNF rehab. patient does not want rehab. so PT recommends increasing PT and OT two twice a day. CM let patients nurse know and she stated she would call MD to request an increase in PT orders. I: [facility] and self pay Plan: Dc home with [facility] when medically stable. Cici Juarez Discharge Planning/Care Management Discharge Assessment Start: 11/08/21 14:23 Freq: Status: Active Protocol: Document 11/08/21 14:24 HS (Rec: 11/08/21 14:30 HS [id number]) Discharge Planning Assessment Assigned Air Intelligence Specialist Cici Dillon RN Case Manger DPOA/Assigned Designee Name Lino Velazquez ( ) Contact Information [phone] Advance Directives? No History Provided By Patient,Medical Record Has Patient been admitted in last 30 Yes days? Prior Living Arrangements House Household Members spouse Type of transporation used prior to Drives own vehicle admit Independent with ADL's Yes Is patient alert and oriented? Yes Caregiver for Another No Patient/Family Preference Home with Home Health Barriers to Discharge No Discharge Plan Home with Home Health Transportation Arrangement Family Referrals Initiated Home Health If patient plan is home with home health No : Has signed face to face form been completed? Medicare Choice List Provided Yes SNF/HH Preference [facility] Contact Name/ Whiteboard Updated in Patient Room with Yes name and ext. # of Air Intelligence Specialist Review Status In Process Next Review Type Continued Stay Review
--- NOTE | 2021-11-08 14:57 | CM.DPNOTE ---
Faxed Home health referral packet to [facility] per Cici and received fax conf. Mena Lisa CM Asst.
[2021-11-08 15:00] VITALS: BP 115/69; PULSE 101; RESP 16; TEMP 36.9; O2SAT 97
[2021-11-08] MEDS: LACTATED RINGERS 1,000 ML 75 ML IV (15:11)
--- NOTE | 2021-11-08 18:24 | PC.NURSE ---
I bladder scanned the pt at 16:15 and was at most able to find 22 ml in her bladder. I asked if the pt wanted to try to pee and she said no I am not going through the pain of getting up.
[2021-11-08 20:00] VITALS: BP 158/84; PULSE 102; RESP 16; TEMP 36.8; O2SAT 97
[2021-11-09 00:15] VITALS: RESP 16
[2021-11-09] MEDS: LORazepam 0.5 MG TABLET PO ×2 (00:43→04:29)
[2021-11-09] MEDS: PIPERACILLIN/TAZO 3.375 GM in SODIUM CHLORIDE 0.9% 100 ML 25 ML IV ×3 (02:15→17:31)
--- NOTE | 2021-11-09 02:41 | PC.NURSE ---
Pt. got up to [facility] was not able to void. Pt. requested to have her nam catheter back. Bladder scanned only 111 cc noted & reported to Dr. Wheeler. Order received to place another nam cath. Will implement order & monitor.
[2021-11-09 03:30] VITALS: BP 157/91; PULSE 95; RESP 18; TEMP 38.1; O2SAT 97
[2021-11-09] MEDS: CALCIUM CARBONATE 500 MG TAB 1000 MG PO ×2 (04:34→17:31)
[2021-11-09] MEDS: LACTATED RINGERS 1,000 ML 75 ML IV ×2 (04:52→17:26)
--- NOTE | 2021-11-09 05:52 | PC.NURSE ---
Pt. having nausea & vomiting, unmeasured emesis. Reported I'm aspirating my vomit, Dr. Wheeler paged via answering service awaiting call back. Also pt. reported earlier when I got the pain med., my tummy feels bloated. Dr. Wheeler called back orders received to put her NPO & place NGT. Will inform patient with the orders.
--- NOTE | 2021-11-09 06:08 | PC.NURSE ---
Pt. declined NGT for now, states I'm not vomiting right. Dr. Wheeler notified orders received to place NGT if vomiting persisted & abdominal x-ray. Change Lorazepam IVP, 0.5 mg every 4 hrs. Will make her NPO.
--- NOTE | 2021-11-09 06:13 | DI.RAD.S_ITS ---
PROCEDURE: XR ABDOMEN 1V INDICATIONS: possible ileus TECHNIQUE: One view of the abdomen acquired. COMPARISON: None. FINDINGS: Surgical changes and devices: None. Bowel: Multiple dilated loops of small bowel noted. Loops of small bowel dilated up to 4.4 centimeters in diameter. Soft tissues: Cholecystectomy clips. No suspicious abdominal calcifications. Visualized solid organ contours appear normal in size. Skin eliecer noted over the midline of the lower abdomen/upper pelvis. Coarse calcification centered over the midline of the lower pelvis possibly related to uterine fibroid. Left lower quadrant ostomy noted. Bones: No suspicious bony lesions. IMPRESSION: Multiple dilated loops of small bowel which could represent ileus or small-bowel obstruction Dictated by: Zaida Means MD, PhD on 11/09/2021 at 7:28 Approved by: Zaida Means MD, PhD on 11/09/2021 at 7:29
[2021-11-09 07:22] LABS: Hematocrit 36.1 % (36-46); Hemoglobin 12.3 g/dL (12.0-16.0); Mean Corpuscular HGB Conc 33.9 % (30-36); Mean Corpuscular Hemoglobin 29.8 PG (26-34); Mean Corpuscular Volume 87.9 fL (80-100); Platelet Count 712 X10^3/uL (150-400); Red Blood Cell Count 4.11 X10^6/uL (4.0-5.2); Red Cell Distribution Width 15.4 % (11.6-14.8); White Blood Cell Count 20.4 X10^3/uL (4.5-11.0)
[2021-11-09 07:26] LABS: Add Manual Diff / Slide Review YES
[2021-11-09 07:41] LABS: BUN Creatinine Ratio 22.8 (6-22); Blood Urea Nitrogen 13 mg/dL (7-17); Calcium 8.5 mg/dL (8.4-10.2); Carbon Dioxide 28 mmol/L (22-32); Chloride 105 mmol/L (98-107); Estimated Glomerular Filt Rate > 60.0 mL/min (>60); Glucose 153 mg/dL (80-110); HEMOLYSIS < 15 (0-50); Magnesium 1.7 mg/dL (1.6-2.3); Phosphorous 3.5 mg/dL (2.8-4.1); Potassium 3.6 mmol/L (3.4-5.1); Sodium 135 mmol/L (137-145)
[2021-11-09 07:50] LABS: Neutrophils Absolute Manual 18972 /uL (3000-5900); Total Cells Counted 100
[2021-11-09 07:52] LABS: Anisocytosis 1+; Toxic Granulation Present
[2021-11-09 07:53] LABS: Hypochromasia 1+
[2021-11-09 08:48] VITALS: BP 166/87; PULSE 97; RESP 18; TEMP 37; O2SAT 95
[2021-11-09] MEDS: NYSTATIN SUSP 500,000 UNIT/5 ML UDC 500000 UNIT PO ×2 (09:12→15:30)
[2021-11-09] MEDS: METOCLOPRAMIDE 10 MG/2 ML INJ IV ×4 (09:12→23:34)
[2021-11-09] MEDS: ENOXAPARIN 40 MG/0.4 ML SYRINGE SUBCUT (09:12)
[2021-11-09] MEDS: KETOROLAC 30 MG/ML VIAL IV ×3 (09:12→20:55)
[2021-11-09] MEDS: polyethylene glycoL 3350 17 GM POWD.PACK PO (09:12)
[2021-11-09] MEDS: PANTOPRAZOLE 40 MG VIAL IV ×2 (09:13→20:51)
[2021-11-09] MEDS: SODIUM CHLORIDE 0.9% FLUSH 10 ML IV ×2 (09:13)
--- NOTE | 2021-11-09 10:39 | CM.DPC ---
DCP Cont: Discussed patient during team rounds. She has new ostomy. She is not moving well, and needs encouragement to move with P.T. According to P.T. notes, patient is max assist. Went ahead and faxed P.T. note to [facility], indicating that patient may need fpc. Called Radha at [facility] and asked her to review. Have not yet met with patient. P.T. will also attempt to work with patient today. P: DCP to continue to follow for needs. Original plan was home with home health, but have also sent referral to [facility] with P.T. note sent to [facility]. Hien Murray RN/Set Up Mechanic [employer]
--- NOTE | 2021-11-09 11:26 | PT-IP ANOTE ---
Pt refused to participate in physical therapy at this time. She reports she just wants to relax in bed. Encouraged pt to get up and move more often in room.. Chart notes indicate pt does not want SNF rehab. Pt reports she has cancer and she is considering Hospice.
--- NOTE | 2021-11-09 11:42 | P.PN_ITS ---
Subjective Subjective Date Patient Seen: 11/09/21 Time Patient Seen: 11:47 Interval history: Bout of emesis last night. An abdominal x-ray was taken at that time that demonstrates dilated loops of small bowel. She has had no further emesis feels better. Colostomy has started to produce air. Faye catheter was removed yesterday and then replaced last night for urinary retention. Exam Vital Signs (past 8 hours): - 11/09/21 08:48 Temperature 98.6 F Pulse Rate 97 H Respiratory Rate 18 Blood Pressure 166/87 H Pulse Oximetry 95 Oxygen Delivery Method Room Air Oxygen Flow Rate 0 Narrative Exam Narrative: General adult female alert oriented no acute distress Abdomen soft appropriately tender to palpation. Midline incision clean dry intact with eliecer. Colostomy is edematous but viable there is air within the appliance. Objective Labs Result Diagrams: 11/09/21 06:55 11/09/21 06:55 Labs: Laboratory Results - last 24 hr 11/09/21 11/09/21 06:55 06:55 WBC 20.4 H RBC 4.11 Hgb 12.3 Hct 36.1 MCV 87.9 MCH 29.8 MCHC 33.9 RDW 15.4 H Plt Count 712 H Neut % (Auto) Not Reportable Lymph % (Auto) Not Reportable [place] % (Auto) Not Reportable Eos % (Auto) Not Reportable Baso % (Auto) Not Reportable Lymph # (Auto) Not Reportable [place] # (Auto) Not Reportable Baso # (Auto) Not Reportable Total Counted 100 Seg Neutrophils % 90.0 H Band Neutrophils % 3.0 Lymphocytes % (Manual) 4.0 L Monocytes % (Manual) 2.0 Eosinophils % (Manual) 1.0 L Neutrophils # (Manual) 38061 H Toxic Granulation Present H RBC Morphology See below Hypochromasia 1+ H Anisocytosis 1+ H Sodium 135 L Potassium 3.6 Chloride 105 Carbon Dioxide 28 BUN 13 Creatinine 0.57 Estimated GFR > 60.0 BUN/Creatinine Ratio 22.8 H Glucose 153 H Calcium 8.5 Phosphorus 3.5 Magnesium 1.7 PFSH Medical History Anhidrosis BMI 31.0-31.9,adult Chronic fatigue Mikayla-Read infection Facet arthropathy, lumbar Fatigue Mihaela's disease Hemorrhoids Herniated nucleus pulposus, L4-5 Raynaud phenomenon Reactive hypoglycemia Vitamin D deficiency Surgical History Status post cholecystectomy Status post parathyroidectomy Family History Brother Age: 67 Arthritis of knee Essential hypertension High cholesterol Father Stomach cancer Heart disease Essential hypertension High cholesterol Kidney problem Grandfather Heart disease Essential hypertension Stroke Mother Heart disease Essential hypertension High cholesterol Grandfather Heart disease Essential hypertension Grandmother Heart disease Essential hypertension Stroke Social History household members: spouse Smoking Status: Never smoker alcohol intake: never Assessment & Plan Post-op Postoperative Procedures: Procedures Operation Date: 11/06/21 11:00 Actual Procedure Side Surgeon p Exploratory Laparotomy GEN, COLECTOMY, OSTOMY Not Applicable Chemo Wheeler MD Postoperative status narrative: 61 year old woman postoperative day 3 he status post sigmoid colectomy with end colostomy for colonic perforation. Her operation was performed for diverticulitis however I was informed by pathology yesterday that there was invasive adenocarcinoma within the colon with more results to follow. -Postoperative ileus-resolving, there is air within the colostomy. Clear liquid diet as tolerated -continue Faye catheter for urinary retention. -continue Zosyn for intra-abdominal infection, leukocytosis is down trending -SCDs and prophylactic Lovenox Quality VTE Deep Vein Thrombosis/Pulmonary Embolism Present on Admission: No
--- NOTE | 2021-11-09 14:03 | PT-IP ANOTE ---
Attempted physical therapy treatment but pt declined to get out of bed. She reports she is comfortable and does not want to move. Asked pt about her goals but she can not clearly state any at this time. Pt reports she is waiting to talk to her and physician about her condition. She reports her can put a bed on the first floor of the house for her and that level has a half bath only. Princess's motivation to participate in physical therapy is low at this time. If she continues to refuse will discharge her from therapy. Will check back tomorrow.
[2021-11-09 14:35] VITALS: BP 157/84; PULSE 96; RESP 18; TEMP 37.2; O2SAT 96
--- NOTE | 2021-11-09 14:53 | PC.NURSE ---
Addendum entered by Yuliya Treadwell R.N. 11/09/21 19:28: pt vomited 300cc bile around 1845, one hour after giving morphine. I gave her ativan for nausea. she said she thinks it's the reglan that made her vomit, but she had three doses earlier with no complications. she was asleep most of the day. Original Note: pt refused to get up with PT. urine dark rose color. KAYLA drain with serosang fluid
[2021-11-09] MEDS: MORPHINE 2 MG/ML INJ IV (17:43)
[2021-11-09] MEDS: LORazepam 2 MG/ML INJ 0.5 MG IV (19:14)
[2021-11-09 20:20] VITALS: BP 155/88; PULSE 86; RESP 16; TEMP 37.5; O2SAT 95
[2021-11-09 23:52] VITALS: BP 138/79; PULSE 85; RESP 16; TEMP 36.9; O2SAT 93
[2021-11-10] MEDS: MORPHINE 2 MG/ML INJ IV ×4 (00:07→21:16)
[2021-11-10] MEDS: LACTATED RINGERS 1,000 ML 150 ML IV ×2 (00:40→07:31)
[2021-11-10] MEDS: PIPERACILLIN/TAZO 3.375 GM in SODIUM CHLORIDE 0.9% 100 ML 25 ML IV ×3 (01:45→18:52)
[2021-11-10] MEDS: KETOROLAC 30 MG/ML VIAL IV ×3 (02:47→21:16)
[2021-11-10 06:00] VITALS: BP 145/80; PULSE 85; RESP 16; TEMP 37; O2SAT 95
[2021-11-10] MEDS: SODIUM CHLORIDE 0.9% FLUSH 10 ML IV ×3 (06:04→21:30)
[2021-11-10 06:51] LABS: BUN Creatinine Ratio 26.4 (6-22); Blood Urea Nitrogen 14 mg/dL (7-17); Calcium 7.9 mg/dL (8.4-10.2); Carbon Dioxide 27 mmol/L (22-32); Chloride 107 mmol/L (98-107); Estimated Glomerular Filt Rate > 60.0 mL/min (>60); Glucose 87 mg/dL (80-110); HEMOLYSIS 32 (0-50); Sodium 135 mmol/L (137-145)
[2021-11-10 07:47] LABS: Hematocrit 30.6 % (36-46); Hemoglobin 10.4 g/dL (12.0-16.0); Mean Corpuscular HGB Conc 33.9 % (30-36); Mean Corpuscular Hemoglobin 29.6 PG (26-34); Mean Corpuscular Volume 87.2 fL (80-100); Platelet Count 627 X10^3/uL (150-400); Red Blood Cell Count 3.51 X10^6/uL (4.0-5.2); Red Cell Distribution Width 15.6 % (11.6-14.8); White Blood Cell Count 15.6 X10^3/uL (4.5-11.0)
[2021-11-10 07:57] LABS: Add Manual Diff / Slide Review YES
--- NOTE | 2021-11-10 08:39 | CM.DPC ---
Addendum entered by Hien Murray R.N. 11/10/21 10:45: Spoke to patient. She stated, she is ready to work with P.T. today. She is wanting home with home health. , Lino, was at bedside. She asked for Cici, caser. She also mentioned ho application, and her secondary insurance. Confirmed that ho application was given to her, and encouraged her to speak to admission counselors, but she stated, I want to talk to Cici, she knows what's going on and can help me with this. Mentioned home health agency, and confirmed if she had chosen an agency. Patient stated, I want the one that Cici picked out for me. [facility] is listed on the calendar, and was noted on face sheet. She is aware that Cici is here tomorrow, and would like to arrange a meeting with her and spouse at approximately 10:00. Let her know that this can be passed down to her. Reminded her that hospice case manager do the same job, and that Cici is not always here, and this caser can be of assistance, but she wants to see Cici, because she is more familiar with her and her insurance. Confirmed that her home will be set up with her bed downstairs upon discharge. Reminded her that care management will take care of ordering home health for her at discharge. Added this convention planner's name to her board in her room in case she has further questions today. Left a message with Yolanda at [facility] that patient is wanting home with home health. P: DCP to continue to follow. Still need face to face signed, have not yet seen surgeon, will attempt to follow up, as this will need to be signed to activate home health. Addendum entered by Hien Murray R.N. 11/10/21 10:03: ECONOMETRICS PROFESSOR called and stated that patient wanted to talk to discharge planning. Let her know that this caser would be in the room after team rounds. Attempted to enter room to meet with patient, was at bedside, and nurse, Talat. Let her know that this caser would return to speak to her further today. Hien Murray RN/Simulation Engineer Original Note: DCP Cont: Brock Guerrero caser called and asked about update on patient. She indicated that she will be on today and tomorrow for four hours, and can work on authorization should patient need group home. She did indicate she should qualify, since she has only walked 2 feet. Yolanda's phone number is: [phone]. Let Yolanda know that patient has not wanted to go to skilled according to recent notes, but this caser will check in with her today. P: DCP to continue to follow and will check in with patient. Will ask her if she would be interested in going to skilled rehab before going home. Will also consult with P.T. today to see if she works with them, and how she does. Hien Murray RN/Simulation Engineer
[2021-11-10 09:02] LABS: Neutrophils Absolute Manual 12012 /uL (3000-5900); Total Cells Counted 100
[2021-11-10 09:04] LABS: Anisocytosis 1+; Platelet Estimate Increased on smear; Toxic Granulation Present
[2021-11-10] MEDS: PANTOPRAZOLE 40 MG VIAL IV ×2 (10:28→21:16)
[2021-11-10] MEDS: ENOXAPARIN 40 MG/0.4 ML SYRINGE SUBCUT (10:28)
[2021-11-10] MEDS: NYSTATIN SUSP 500,000 UNIT/5 ML UDC 500000 UNIT PO ×3 (10:29→21:21)
[2021-11-10] MEDS: polyethylene glycoL 3350 17 GM POWD.PACK PO (10:30)
[2021-11-10 11:00] VITALS: BP 145/88; PULSE 90; RESP 19; TEMP 36.7; O2SAT 96
--- NOTE | 2021-11-10 13:09 | PT.IPTN ---
Current Diagnoses Diverticulitis of intestine, part unspecified, with perforation and abscess without bleeding (11/06/21) Peritonitis, unspecified (11/06/21) Surgery Performed Operation Date: 11/06/21 11:00 Actual Procedures p Exploratory Laparotomy GEN, COLECTOMY, OSTOMY(Not Applicable) - Chemo Wheeler MD Physical Therapy Treatment Note M2 PT-IP Current Condition Start: 11/07/21 14:18 Freq: NEEDED Status: Active Protocol: Document 11/09/21 12:47 DLM (Rec: 11/09/21 12:47 DLM [id number]) Physical Therapy Current Condition Current Condition Evaluation Date 11/07/21 Treatment Diagnosis s/p colectomy with colostomy; difficulty in walking Onset Date 11/06/21 M3 PT-IP Subjective Start: 11/07/21 14:18 Freq: NEEDED Status: Active Protocol: Document 11/10/21 12:50 LJ (Rec: 11/10/21 13:09 LJ [id number]) Subjective Physical Therapy Visit Type Type Treatment Note Visit Start Time 12:31 Visit Stop Time 12:50 Total Visit Minutes 19 Notes Pt willing to do PT in room Therapy Pain Assessment Pain When Pain Assessed At Rest Pain Present Pain Present Pain Reported M4 PT-IP Mobility and Gait Start: 11/07/21 14:18 Freq: NEEDED Status: Active Protocol: Document 11/10/21 12:50 LJ (Rec: 11/10/21 13:09 LJ [id number]) PT-Bed Mobility Assessment Rolling Type of Rolling Roll to Right Level of Assist Moderate Assistance,1 Person Assistance Supine to Sit Supine to Sit Moderate Assistance,1 Person Assistance,Bedrails Scooting Scooting to Edge of Bed Contact Guard Assistance PT-Transfer Assessment Sit to and From Stand Sit to and from Stand Contact Guard Assistance,1 Person Assistance,Use of Upper Extremities Equipment Transfer Assistive Device Gait Belt,Front Wheeled Walker Orthotic/Prosthetic Devices or Brace: No Transfers Transfer Destination Chair Transfer Technique Stand Step Pivot Transfer Ability Level of Assist Minimal Assistance,1 Person Assistance,Use of Upper Extremities Comments Mobility Comments Pt administered morphine earlier and is not in pain now . On flat bed pt able to logroll to right side with ModA using oneal to assist rolling. behind pt for stand by assist. Pt required ModA and bed rails to transfer from SL to seated on side of bed. Pt complaining of pain in abdomen when sitting upright. Pt then transfered to standing using hands to push up from bed to standing. She stood with eyes closed for ~30 sec prior to beginning to take steps to transfer to chair 2 feet away. She was cued to use the chair arm rests to lower herslef into the chair. Pt was given all needs and nursing entered room to atten to IV. Gait Assessment Gait Gait Assistance Required: Contact Guard Assist,Minimum Assistance Distance (Feet) 2 Able to Maintain Weight Bearing Status Yes During Gait Assistive Devices Assistive Device Gait Belt,Front Wheeled Walker Orthotic/Prosthetic Devices or Brace: No Gait Deviations General Gait Pattern Antalgic,Decreased Stride Length,Decreased Feet Clearance,Flexed Trunk,Narrow Based Gait,Step-to Gait Factors Limiting Gait Function Factors Limiting Gait Function Decreased Activity Tolerance, Decreased Strength,Pain,Poor Balance,Poor Safety Awareness Comments Gait Comments see mobility comments Stair Climbing Assessment Comments Stair Climbing Comments Unable to assess due to pain, decreased strength. Will need to complete 3 step L HR enter home, 22 stairs L HR to bedroom. M5 PT-IP Objective Assessments Start: 11/07/21 14:18 Freq: NEEDED Status: Active Protocol: Document 11/07/21 13:10 AB (Rec: 11/07/21 14:32 AB [id number]) Orientation Orientation/Cognition Level of Alertness Alert Orientation Name,Place,Situation Language Function Ability No Deficits Noted Safety Awareness Decreased Safety Awareness Memory Description No Deficits Noted,Short Term Impaired Gross Range of Motion Lower Extremity ROM Assessment Within Functional Limits Strength Lower Extremity Strength Hip 3+/5 Knee 4-/5 Sensation Assessment Sensation Gross Sensation WNL Muscle Tone Muscle Tone WNL Yes M6 PT-IP Treatment Start: 11/07/21 14:18 Freq: NEEDED Status: Active Protocol: Document 11/10/21 12:50 LJ (Rec: 11/10/21 13:09 LJ [id number]) Physical Therapy Treatment Education Education Provided Precautions,Safety M7 PT-IP Assessment and Plan Start: 11/07/21 14:18 Freq: NEEDED Status: Active Protocol: Document 11/10/21 12:50 LJ (Rec: 11/10/21 13:09 LJ [id number]) PT Summary Assessment and Plan Potential Rehabilitation Potential Good Status of Condition at Evaluation Evolving Summary Impairments Pain,ROM,Strength,Balance, Coordination,Sensation,Tone, Cognition,Bed Mobility, Transfers,Gait,Activity Tolerance Progress Towards Goals Progressing Toward Goals,Slow Progress due to Pain,Slow Progress due to Activity Tolerance Assessment Summary Pt directing treatment session . Unwilling to ambulate in room due to reported pain. Pt requested to lay in chair fully reclined similar to position in bed. She was advised to sit more upright rather than simulate bed positioin. She was advised on the importance of mobility and states she wants to move more but not right now. Pt will require SNF to improve strength, level of activity, and mobility to rreturn to PLOF. Goals Bed Mobility Goal Independent Transfer Goal Independent,Front Wheeled Walker Gait Goal Independent,Front Wheel Walker Gait Distance 200 Other Goals improve ambulation without AD ~ 300 ft SBA up/down 22 steps L rail ascending SBA Days to Meet Goals 10 Frequency of Treatment Frequency Of Treatment Once a Day Treatment Plan Physical Therapy Treatment Plan Bed Mobility Training,Transfer Training,Gait Training, Therapeutic Exercise,Balance Retraining,Post Op Education, Discharge Planning,Hot or Cold Pack,Neuromuscular Re-ed, Coordination Retraining,Manual Therapy Other Recommendations and Next Treatment bed mob, transfers, further Focus distance gait. Will need to complete 3 stair mgt + 22 stair mgt L HR to DC home safely. Precautions Abdominal Surgery Precautions Log Roll,Lifting Restrictions, Gait Belt above Incisional Area Weight Bearing Status Weight Bearing Status Full Weight Bearing Recommendations To Nursing Amount of Assist Needed 1 Person Assist Discharge Recommendations PT Discharge Recommendations Home with / Assist Available,Home Health,SNF Rehab,Home vs SNF Transportation Needs at Discharge Private Vehicle,Wheelchair/ Cabulance
[2021-11-10 15:00] VITALS: BP 135/76; PULSE 87; RESP 18; TEMP 36.7; O2SAT 96
--- NOTE | 2021-11-10 15:21 | P.PN_ITS ---
Subjective Subjective Date Patient Seen: 11/10/21 Interval history: Isabelle reports that she has not had much clear liquids yet although she feels that she good eat ice cream now. Exam Vital Signs (past 8 hours): - 11/10/21 11:00 Temperature 98.1 F Pulse Rate 90 Respiratory Rate 19 Blood Pressure 145/88 H Pulse Oximetry 96 Oxygen Delivery Method Room Air Oxygen Flow Rate 0 Narrative Exam Narrative: No acute distress Colostomy appears viable with a small amount of stool output Dressings in place over midline wound Objective Labs Result Diagrams: 11/10/21 07:31 11/10/21 06:20 Labs: Laboratory Results - last 24 hr 11/10/21 11/10/21 06:20 07:31 WBC 15.6 H RBC 3.51 L Hgb 10.4 L Hct 30.6 L MCV 87.2 MCH 29.6 MCHC 33.9 RDW 15.6 H Plt Count 627 H Neut % (Auto) Not Reportable Lymph % (Auto) Not Reportable [place] % (Auto) Not Reportable Eos % (Auto) Not Reportable Baso % (Auto) Not Reportable Lymph # (Auto) Not Reportable [place] # (Auto) Not Reportable Baso # (Auto) Not Reportable Total Counted 100 Seg Neutrophils % 73.0 H Band Neutrophils % 4.0 Lymphocytes % (Manual) 14.0 L Monocytes % (Manual) 6.0 Eosinophils % (Manual) 2.0 Metamyelocytes % 1.0 H Neutrophils # (Manual) 86180 H Toxic Granulation Present H Platelet Estimate Increased on smear RBC Morphology See below Anisocytosis 1+ H Sodium 135 L Potassium 4.0 Chloride 107 Carbon Dioxide 27 BUN 14 Creatinine 0.53 Estimated GFR > 60.0 BUN/Creatinine Ratio 26.4 H Glucose 87 Calcium 7.9 L PFSH Medical History Anhidrosis BMI 31.0-31.9,adult Chronic fatigue Mikayla-Read infection Facet arthropathy, lumbar Fatigue Mihaela's disease Hemorrhoids Herniated nucleus pulposus, L4-5 Raynaud phenomenon Reactive hypoglycemia Vitamin D deficiency Surgical History Status post cholecystectomy Status post parathyroidectomy Family History Brother Age: 67 Arthritis of knee Essential hypertension High cholesterol Father Stomach cancer Heart disease Essential hypertension High cholesterol Kidney problem Grandfather Heart disease Essential hypertension Stroke Mother Heart disease Essential hypertension High cholesterol Grandfather Heart disease Essential hypertension Grandmother Heart disease Essential hypertension Stroke Social History household members: spouse Smoking Status: Never smoker alcohol intake: never Assessment & Plan Assessment and plan (1) Postoperative examination: Status: Acute Plan Advanced diet as tolerates Time Spent With Patient Critical Care time: I spent a total of [] minutes of critical care time on this patient's care today; this time is exclusive of procedural time. Quality VTE Deep Vein Thrombosis/Pulmonary Embolism Present on Admission: No
[2021-11-10] MEDS: SODIUM CHLORIDE 0.9% 1,000 ML 150 ML IV (17:07)
[2021-11-10 19:35] VITALS: BP 147/80; PULSE 94; RESP 16; TEMP 38.1; O2SAT 94
[2021-11-10 23:00] VITALS: RESP 18
[2021-11-11] MEDS: PIPERACILLIN/TAZO 3.375 GM in SODIUM CHLORIDE 0.9% 100 ML 25 ML IV ×3 (02:39→19:14)
[2021-11-11] MEDS: SODIUM CHLORIDE 0.9% 1,000 ML 150 ML IV ×4 (02:40→23:29)
[2021-11-11] MEDS: MORPHINE 2 MG/ML INJ IV ×3 (02:45→19:14)
[2021-11-11 03:00] VITALS: BP 134/80; PULSE 83; RESP 16; TEMP 37.3; O2SAT 96
[2021-11-11] MEDS: KETOROLAC 30 MG/ML VIAL IV ×4 (03:27→20:09)
[2021-11-11 05:41] LABS: Add Manual Diff / Slide Review NO; Basophils Absolute Auto 100 /uL (0-100); Basophils Percent Auto 0.8 % (0-2); Eosinophils Absolute Auto 300 /uL (0-450); Hematocrit 29.2 % (36-46); Hemoglobin 9.8 g/dL (12.0-16.0); Lymphocytes Absolute Auto 1400 /uL (1100-4500); Lymphocytes Percent Auto 8.8 % (25-40); Mean Corpuscular HGB Conc 33.7 % (30-36); Mean Corpuscular Hemoglobin 29.8 PG (26-34); Mean Corpuscular Volume 88.6 fL (80-100); Monocytes Absolute Auto 900 /uL (0-900); Monocytes Percent Auto 5.6 % (3-14); Neutrophils Absolute Auto 12800 /uL (1500-7000); Neutrophils Percent Auto 82.8 % (50-75); Platelet Count 616 X10^3/uL (150-400); Red Blood Cell Count 3.29 X10^6/uL (4.0-5.2); Red Cell Distribution Width 15.3 % (11.6-14.8); White Blood Cell Count 15.5 X10^3/uL (4.5-11.0)
[2021-11-11 05:49] LABS: BUN Creatinine Ratio 20.8 (6-22); Blood Urea Nitrogen 11 mg/dL (7-17); Calcium 7.6 mg/dL (8.4-10.2); Carbon Dioxide 26 mmol/L (22-32); Chloride 109 mmol/L (98-107); Estimated Glomerular Filt Rate > 60.0 mL/min (>60); Glucose 90 mg/dL (80-110); HEMOLYSIS 33 (0-50); Potassium 3.7 mmol/L (3.4-5.1); Sodium 135 mmol/L (137-145)
[2021-11-11 07:45] VITALS: BP 138/86; PULSE 77; RESP 18; TEMP 36.6; O2SAT 96
[2021-11-11] MEDS: NYSTATIN SUSP 500,000 UNIT/5 ML UDC 500000 UNIT PO ×3 (09:29→20:16)
[2021-11-11] MEDS: ENOXAPARIN 40 MG/0.4 ML SYRINGE SUBCUT (09:29)
[2021-11-11] MEDS: PANTOPRAZOLE 40 MG VIAL IV ×2 (09:29→20:09)
[2021-11-11] MEDS: SODIUM CHLORIDE 0.9% FLUSH 10 ML IV ×2 (09:33→22:32)
--- NOTE | 2021-11-11 11:37 | PT.IPTN ---
Current Diagnoses Diverticulitis of intestine, part unspecified, with perforation and abscess without bleeding (11/06/21) Peritonitis, unspecified (11/06/21) Encounter for follow-up examination after completed treatment for conditions other than malignant neoplasm (11/06/21) Surgery Performed Operation Date: 11/06/21 11:00 Actual Procedures p Exploratory Laparotomy GEN, COLECTOMY, OSTOMY(Not Applicable) - Chemo Wheeler MD Physical Therapy Treatment Note M2 PT-IP Current Condition Start: 11/07/21 14:18 Freq: NEEDED Status: Active Protocol: Document 11/09/21 12:47 DLM (Rec: 11/09/21 12:47 DLM [id number]) Physical Therapy Current Condition Current Condition Evaluation Date 11/07/21 Treatment Diagnosis s/p colectomy with colostomy; difficulty in walking Onset Date 11/06/21 M3 PT-IP Subjective Start: 11/07/21 14:18 Freq: NEEDED Status: Active Protocol: Document 11/11/21 11:06 JAIME (Rec: 11/11/21 11:37 LJ [id number]) Subjective Physical Therapy Visit Type Type Treatment Note Visit Start Time 10:01 Visit Stop Time 11:06 Total Visit Minutes 65 Notes Pt willing to work with PT Physical Therapy Visit Comments Patient Comments Pt willing to ambulate in hallway to stairs and trial platform step in order to go home today Therapy Pain Assessment Pain When Pain Assessed At Rest Pain Present Pain Present Pain Reported M4 PT-IP Mobility and Gait Start: 11/07/21 14:18 Freq: NEEDED Status: Active Protocol: Document 11/11/21 11:06 JAIME (Rec: 11/11/21 11:37 LJ [id number]) PT-Bed Mobility Assessment Rolling Type of Rolling Roll to Right Level of Assist Standby Assistance Supine to Sit Supine to Sit Standby Assistance Scooting Scooting to Edge of Bed Standby Assistance PT-Transfer Assessment Sit to and From Stand Sit to and from Stand Standby Assistance,Use of Upper Extremities Equipment Transfer Assistive Device Gait Belt,Front Wheeled Walker Orthotic/Prosthetic Devices or Brace: No Transfers Transfer Destination Chair,Wheelchair Transfer Technique ambulated Transfer Ability Level of Assist Standby Assistance,Use of Upper Extremities Comments Mobility Comments Pt lying in bed upon arrival. Nursing administered morphine earlier. Pt able to perform bed mobility SBA with cues for logroll. Pt stood SBA using FWW to push herself up. Pt then ambulated with FWW in the hallway ~100' with assist for IV pole. She stated the colostomy bag was uncomfortable and pulling her forward into a bent position. Pt able to ambulate without LOB or rest break. Occasionally she would hold the colostom bag and complain about how it was the worst part about walking. She ambulated to the platform and was able to go up using the FWW and go backwards to descend. She stated it hurt too much because of the colostomy bag to bend forward to step down forward. Pt asked to be wheeled back to her room because it was too uncomfortable to walk due to the colostomy bag. Gait Assessment Gait Gait Assistance Required: Standby Assistance,Contact Guard Assist Distance (Feet) 100 Able to Maintain Weight Bearing Status Yes During Gait Assistive Devices Assistive Device Gait Belt,Front Wheeled Walker Orthotic/Prosthetic Devices or Brace: No Gait Deviations General Gait Pattern Antalgic,Decreased Stride Length,Decreased Feet Clearance,Flexed Trunk,Narrow Based Gait,Step-to Gait Factors Limiting Gait Function Factors Limiting Gait Function Decreased Activity Tolerance, Decreased Strength,Pain,Poor Balance,Poor Safety Awareness Comments Gait Comments see mobility comments Stair Climbing Assessment Evaluation Level of Assist On Stairs Contact Guard Assistance Devices Stair Climbing Assistive Devices Front Wheel Walker Technique/Endurance Stair Climbing Direction Ascend and Descend Stair Climbing Technique Step to Step Number of Steps Climbed 1 Stair Climbing Set # Repetitions (reps) 1 Comments Stair Climbing Comments Pt stepped up onto the platform using the FWW and stepped down going backwards with assist from this therapist. M5 PT-IP Objective Assessments Start: 11/07/21 14:18 Freq: NEEDED Status: Active Protocol: Document 11/07/21 13:10 AB (Rec: 11/07/21 14:32 AB [id number]) Orientation Orientation/Cognition Level of Alertness Alert Orientation Name,Place,Situation Language Function Ability No Deficits Noted Safety Awareness Decreased Safety Awareness Memory Description No Deficits Noted,Short Term Impaired Gross Range of Motion Lower Extremity ROM Assessment Within Functional Limits Strength Lower Extremity Strength Hip 3+/5 Knee 4-/5 Sensation Assessment Sensation Gross Sensation WNL Muscle Tone Muscle Tone WNL Yes M6 PT-IP Treatment Start: 11/07/21 14:18 Freq: NEEDED Status: Active Protocol: Document 11/11/21 11:06 JAIME (Rec: 11/11/21 11:37 LJ [id number]) Physical Therapy Treatment Education Education Provided Precautions,Safety M7 PT-IP Assessment and Plan Start: 11/07/21 14:18 Freq: NEEDED Status: Active Protocol: Document 11/11/21 11:06 JAIME (Rec: 11/11/21 11:37 LJ [id number]) PT Summary Assessment and Plan Potential Rehabilitation Potential Good Status of Condition at Evaluation Evolving Summary Impairments Pain,ROM,Strength,Balance, Coordination,Sensation,Tone, Cognition,Bed Mobility, Transfers,Gait,Activity Tolerance Progress Towards Goals Progressing Toward Goals,Safe For Discharge Assessment Summary Pt has improved mobility and gait distance this session by being able to get herself out of bed and ambulate a distance farther than she reports having to accomplish at home. She demonstrated she can use FWW to ascend stairs to get into house. She states she can sleep in her recliner at home while the bed is being moved to the livingroom. Throughout the treatment session she perseverated on the colostomy bag and how it was uncomfortable and limiting her mobility. Pt spoke to , Lino, and he was unable to locate a FWW at home. She will need to have a walker for DC. At this time she is safe to DC home with assisting and FWW when cleared medically. If not going home today she should trial walking without an AD and empty colostomy bag tomorrow. Goals Bed Mobility Goal Independent Transfer Goal Independent,Front Wheeled Walker Gait Goal Independent,Front Wheel Walker Gait Distance 200 Other Goals improve ambulation without AD ~ 300 ft SBA up/down 22 steps L rail asceding SBA Frequency of Treatment Frequency Of Treatment Once a Day Treatment Plan Physical Therapy Treatment Plan Bed Mobility Training,Transfer Training,Gait Training, Therapeutic Exercise,Balance Retraining,Post Op Education, Discharge Planning,Hot or Cold Pack,Neuromuscular Re-ed, Coordination Retraining,Manual Therapy Other Recommendations and Next Treatment bed mob, transfers, further Focus distance gait. Will need to complete 3 stair mgt + 22 stair mgt L HR to DC home safetly. Precautions Abdominal Surgery Precautions Log Roll,Lifting Restrictions, Gait Belt above Incisional Area Weight Bearing Status Weight Bearing Status Full Weight Bearing Recommendations To Nursing Amount of Assist Needed 1 Person Assist Discharge Recommendations PT Discharge Recommendations Home with 24/ Assist Available,Home Health,SNF Rehab,Home vs SNF Equipment Needed for Home Before FWW Discharge Transportation Needs at Discharge Private Vehicle,Wheelchair/ Cabulance
--- NOTE | 2021-11-11 11:45 | PM.PNPO.1 ---
Subjective Subjective Date Patient Seen: 11/11/21 Time Patient Seen: 11:45 Interval history: Feeling well this morning. She looks significantly better than she did 2 days ago. Ostomy is producing stool. Looking forward to making her way home. Exam Vital Signs (past 8 hours): - 11/11/21 07:45 Temperature 97.9 F Pulse Rate 77 Respiratory Rate 18 Blood Pressure 138/86 Pulse Oximetry 96 Oxygen Delivery Method Room Air Oxygen Flow Rate 0 Narrative Exam Narrative: General adult woman alert oriented no distress. Abdomen soft appropriately tender to palpation. Colostomy producing stool and gas. Rectal stump drains serous Objective Labs Result Diagrams: 11/11/21 05:00 11/11/21 05:00 Labs: Laboratory Results - last 24 hr 11/11/21 11/11/21 05:00 05:00 WBC 15.5 H RBC 3.29 L Hgb 9.8 L Hct 29.2 L MCV 88.6 MCH 29.8 MCHC 33.7 RDW 15.3 H Plt Count 616 H Neut % (Auto) 82.8 H Lymph % (Auto) 8.8 L [place] % (Auto) 5.6 Eos % (Auto) 2.0 Baso % (Auto) 0.8 Neut # (Auto) 35160 H Lymph # (Auto) 1400 [place] # (Auto) 900 Eos # (Auto) 300 Baso # (Auto) 100 Sodium 135 L Potassium 3.7 Chloride 109 H Carbon Dioxide 26 BUN 11 Creatinine 0.53 Estimated GFR > 60.0 BUN/Creatinine Ratio 20.8 Glucose 90 Calcium 7.6 L PFSH Medical History Anhidrosis BMI 31.0-31.9,adult Chronic fatigue Mikayla-Read infection Facet arthropathy, lumbar Fatigue Mihaela's disease Hemorrhoids Herniated nucleus pulposus, L4-5 Raynaud phenomenon Reactive hypoglycemia Vitamin D deficiency Surgical History Status post cholecystectomy Status post parathyroidectomy Family History Brother Age: 67 Arthritis of knee Essential hypertension High cholesterol Father Stomach cancer Heart disease Essential hypertension High cholesterol Kidney problem Grandfather Heart disease Essential hypertension Stroke Mother Heart disease Essential hypertension High cholesterol Grandfather Heart disease Essential hypertension Grandmother Heart disease Essential hypertension Stroke Social History household members: spouse Smoking Status: Never smoker alcohol intake: never Assessment & Plan Post-op Postoperative Procedures: Procedures Operation Date: 11/06/21 11:00 Actual Procedure Side Surgeon p Exploratory Laparotomy GEN, COLECTOMY, OSTOMY Not Applicable Chemo Wheeler MD Postoperative status narrative: 61-year-old woman postoperative day 5 status post sigmoid colectomy with end colostomy for perforated colon cancer. She is gradually recovering and approaching discharge within the next 1-2 days. -regular diet -remove Faye -colostomy teaching -remove intra-abdominal drains today -SCDs and prophylactic Lovenox -leukocytosis continued to down trend -home health at discharge for continued colostomy teaching -anemia is secondary to dilution and chronic illness Quality VTE Deep Vein Thrombosis/Pulmonary Embolism Present on Admission: No
[2021-11-11 12:10] VITALS: BP 144/72; PULSE 80; RESP 20; TEMP 36.8; O2SAT 97
--- NOTE | 2021-11-11 14:03 | CM.DANOTE ---
DCP Continued: CM met with patient at the bedside. Patient was very enthusiastic to see CM. CM let the patient know that all CM nurses and [employer] are able to assist with DC planning needs. patient stated she knew but really liked CM and only wanted to deal with this CM. CM explained that I am not always here and she may need to deal with one of the other CM providers. Patient stated understanding. CM and Patient discussed patient DC home with [facility] and patient stated agreement. CM got Dr. Wheeler to sign F2F and faxed it alone with a progress note and current PT note to [facility] . CM also called [facility] to make sure they received the referral but there was no answer so CM left a VM. CM will call them again tomorrow after the holiday to check on HH referral. . Patient asked for another [facility] application- CM provided it to the patient along with directions on how to fill out the application. CM also gave the patient at her request [employer] phone number. patient is interested in setting [employer] up as a secondary insurance since she is concerned about the cost of her upcoming medical needs. CM encouraged the patient to call patient accounts to get some information about her insurance and planning. patient stated she would call them and CM gave the patient their phone number. PLan: Home with HH either later today or tomorrow depending on how patient is doing with ambulation, solid food and having her Faye removed. CM will continue to follow to help patient with any new DC planning needs that may arise prior to DC. Cici Dillon RN Case Manger.
[2021-11-11 17:37] VITALS: BP 134/81; PULSE 78; RESP 19; TEMP 37; O2SAT 97
--- NOTE | 2021-11-11 19:42 | PC.NURSE ---
Ostomy: Pt wants to be able to d/c to home tomorrow. Yunier was d/c this afternoon, no void yet. Ostomy teaching started yesterday. Given printed material to read. Today spouse removed old ostomy pouch, shown how to clean skin around stoma, patted skin dry. discussed stoma care. Pt's spouse was able to size the wafer and able to place pouch correctly over stoma and had good skin adherence. Questions answered. Spouse had been given nutrition guidelines yesterday. Does have home health who will be following with them on saturday.
[2021-11-11 20:21] VITALS: BP 155/77; PULSE 88; RESP 18; TEMP 36.8; O2SAT 99
[2021-11-11] MEDS: LORazepam 2 MG/ML INJ 0.5 MG IV (22:38)
[2021-11-12] VITALS (7 sets, daily range): BP systolic 102–155; BP diastolic 38–86; PULSE 78–85; RESP 16–20; TEMP 35.9–37.1; O2SAT 96–99
--- NOTE | 2021-11-12 | DI.CT.S_ITS ---
PROCEDURE: CT ABDOMEN PELVIS W CON INDICATIONS: LEAKING INCISION SITE, PAIN TECHNIQUE: After the administration of oral and IV contrast, axial sections were acquired from the lung bases to the pubic symphysis. Coronal and sagittal reformats were performed. For radiation dose reduction, the following was used: automated exposure control, adjustment of mA and/or kV according to patient size. COMPARISON: [facility], CT, CT ANGIO CHEST PE PROTOCOL, 11/06/2021, 8:46. [facility], CT, CT ABDOMEN PELVIS W CON, 11/06/2021, 8:46. FINDINGS: Image quality: Excellent. Lung bases: Small to moderate bilateral pleural effusions with adjacent atelectasis. Partially imaged pulmonary nodules. Heart: No cardiomegaly. Small pericardial effusion. ABDOMEN: Liver: Normal enhancement and contour. Gallbladder: Cholecystectomy Biliary ducts: Minimal intrahepatic biliary duct dilatation. Pancreas: Unremarkable. Spleen: Unremarkable. Adrenal Glands: Unremarkable. Kidneys and Ureters: Symmetric enhancement without evidence of obstructive uropathy. A few scattered hypoattenuating lesions are seen, measuring up to 1.1 cm, which may reflect cysts. Stomach and Bowel: Dilatation of the small bowel measuring up to 2.6 cm, most consistent with ileus/partial obstruction. Colonic diverticulosis. A left lower quadrant ostomy is seen. The appendix is not well delineated. Peritoneum: Small amount of fluid in the bilateral paracolic gutters. Free intraperitoneal gas, which may be postsurgical. Ventral Wall: Postsurgical change. Abdominal Nodes: No retroperitoneal or mesenteric adenopathy by size criteria. Vessels: Aorta and inferior vena cava are normal in size. PELVIS: Pelvic Organs: Multiple uterine masses, which may reflect myomatous change. Bladder: Not well distended. Pelvic Nodes: No enlarged lymph nodes. Miscellaneous: No inguinal hernias are seen. Reticulated and confluent soft tissue density in subcutaneous fat, compatible with anasarca. Bones: No significant abnormality. IMPRESSION: 1. Small to moderate bilateral pleural effusions with atelectasis. 2. Small pericardial effusion. 3. Small amount of fluid in the bilateral paracolic gutters, slightly increased compared to the prior study. 4. Free intraperitoneal gas, decreased compared to the prior study. 5. Anasarca. 6. Myomatous change of the uterus. Dictated by: Georges Lantigua M.D. on 11/12/2021 at 23:03 Approved by: Georges Lantigua M.D. on 11/12/2021 at 23:22
[2021-11-12] MEDS: PIPERACILLIN/TAZO 3.375 GM in SODIUM CHLORIDE 0.9% 100 ML 25 ML IV ×3 (02:34→18:26)
[2021-11-12 04:54] LABS: BUN Creatinine Ratio 14.8 (6-22); Blood Urea Nitrogen 9 mg/dL (7-17); Calcium 7.8 mg/dL (8.4-10.2); Carbon Dioxide 28 mmol/L (22-32); Chloride 109 mmol/L (98-107); Estimated Glomerular Filt Rate > 60.0 mL/min (>60); Glucose 101 mg/dL (80-110); HEMOLYSIS < 15 (0-50); Potassium 3.6 mmol/L (3.4-5.1); Sodium 137 mmol/L (137-145)
[2021-11-12] MEDS: KETOROLAC 30 MG/ML VIAL IV ×4 (04:59→22:08)
[2021-11-12 05:05] LABS: Hematocrit 31.4 % (36-46); Hemoglobin 10.6 g/dL (12.0-16.0); Mean Corpuscular HGB Conc 33.6 % (30-36); Mean Corpuscular Hemoglobin 29.8 PG (26-34); Mean Corpuscular Volume 88.6 fL (80-100); Platelet Count 700 X10^3/uL (150-400); Red Blood Cell Count 3.55 X10^6/uL (4.0-5.2); Red Cell Distribution Width 15.5 % (11.6-14.8); White Blood Cell Count 14.2 X10^3/uL (4.5-11.0)
[2021-11-12 05:07] LABS: Add Manual Diff / Slide Review YES
[2021-11-12 05:35] LABS: Neutrophils Absolute Manual 10934 /uL (3000-5900); Total Cells Counted 100
[2021-11-12 05:38] LABS: Anisocytosis 1+; Platelet Estimate Increased on smear
[2021-11-12 05:39] LABS: Toxic Granulation Present
[2021-11-12] MEDS: SODIUM CHLORIDE 0.9% 1,000 ML 150 ML IV (06:08)
[2021-11-12] MEDS: PANTOPRAZOLE 40 MG VIAL IV ×2 (08:24→22:08)
[2021-11-12] MEDS: NYSTATIN SUSP 500,000 UNIT/5 ML UDC 500000 UNIT PO ×3 (08:24→22:21)
[2021-11-12] MEDS: ENOXAPARIN 40 MG/0.4 ML SYRINGE SUBCUT (08:25)
[2021-11-12] MEDS: SODIUM CHLORIDE 0.9% FLUSH 10 ML IV (08:40)
[2021-11-12] MEDS: MORPHINE 2 MG/ML INJ IV ×2 (10:03→22:08)
--- NOTE | 2021-11-12 10:12 | PM.DS.1 ---
History of Present Illness History of Present Illness Chief complaint: Severe Abd pain. Here a week ago-not better Discharge Providers Provider Date of admission: 11/06/21 10:46 Discharge Date: 11/12/21 Primary care physician: DAJUAN Pepper Consults: 11/06/21 10:34 Consult to Tele-aviation electrical technician Routine Comment: Consulting Provider: Grazyna Tele-intensivists Reason for consultation: Induction Coordination Engineer services Has provider been notified: No 11/06/21 12:05 Consult to Dietitian, Adult Routine Comment: hypoglycemia Reason For Exam: Pt having Schmidt procedure and has reactive Consult to Pastoral Services Routine Comment: called from ICU 11/07/21 11:58 Consult to Discharge Planning Routine Comment: new colostomy Consult to Physical Therapy Evaluate & Treat Comment: Physician Instructions: Evaluate and Treat Discharge provider: Chemo Wheeler MD Summary Hospital Course Discharge Diagnosis: Colon cancer Peritonitis Anemia Sepsis Hospital Course: 61-year-old woman was admitted for sepsis and peritonitis subsequent to a large bowel perforation. There was evidence of diverticular disease on imaging she was taken to the operating room and underwent a Nu's procedure with end colostomy there was purulent peritonitis. Postoperatively she was in the intensive care unit until her sepsis resolved. She progressed had return of bowel function her diet was advanced. And she continued antibiotic therapy for the intra-abdominal infection and had a gradual consistent reduction in her white blood cell count. Pathology resulted in adenocarcinoma within the of the sigmoid/rectum the results of pathology report have not been finalized as of this date. It appears that she had perforated colon cancer. At discharge her white blood cell count is 14 down from 28 she is afebrile and clinically improving. I discussed her white blood cell count with for fat and she would prefer to go home at this time which I think is reasonable on a 1 week course of antibiotics. She will follow up with the surgical clinic in 5 days time. Exam Vital Signs (past 8 hours): - 11/12/21 04:59 11/12/21 07:50 Temperature 97.3 F L 98.7 F Pulse Rate 85 79 Respiratory Rate 16 19 Blood Pressure 154/84 H 149/86 H Pulse Oximetry 98 96 Oxygen Delivery Method Room Air Oxygen Flow Rate 0 Narrative Exam Narrative: General adult woman alert oriented no acute distress Abdomen soft nontender midline incision clean dry intact with eliecer. Left-sided colostomy productive of stool and gas Objective Labs Result Diagrams: 11/12/21 04:30 11/12/21 04:30 Labs: Laboratory Results - last 24 hr 11/12/21 11/12/21 04:30 04:30 WBC 14.2 H RBC 3.55 L Hgb 10.6 L Hct 31.4 L MCV 88.6 MCH 29.8 MCHC 33.6 RDW 15.5 H Plt Count 700 H Neut % (Auto) Not Reportable Lymph % (Auto) Not Reportable Baldwin % (Auto) Not Reportable Eos % (Auto) Not Reportable Baso % (Auto) Not Reportable Lymph # (Auto) Not Reportable Baldwin # (Auto) Not Reportable Baso # (Auto) Not Reportable Total Counted 100 Seg Neutrophils % 70.0 Band Neutrophils % 7.0 Lymphocytes % (Manual) 16.0 L Monocytes % (Manual) 4.0 Eosinophils % (Manual) 2.0 Metamyelocytes % 1.0 H Neutrophils # (Manual) 09711 H Toxic Granulation Present H Platelet Estimate Increased on smear RBC Morphology See below Anisocytosis 1+ H Sodium 137 Potassium 3.6 Chloride 109 H Carbon Dioxide 28 BUN 9 Creatinine 0.61 Estimated GFR > 60.0 BUN/Creatinine Ratio 14.8 Glucose 101 Calcium 7.8 L PFSH Medical History Anhidrosis BMI 31.0-31.9,adult Chronic fatigue Mikayla-Read infection Facet arthropathy, lumbar Fatigue Mihaela's disease Hemorrhoids Herniated nucleus pulposus, L4-5 Raynaud phenomenon Reactive hypoglycemia Vitamin D deficiency Surgical History Status post cholecystectomy Status post parathyroidectomy Family History Brother Age: 67 Arthritis of knee Essential hypertension High cholesterol Father Stomach cancer Heart disease Essential hypertension High cholesterol Kidney problem Grandfather Heart disease Essential hypertension Stroke Mother Heart disease Essential hypertension High cholesterol Grandfather Heart disease Essential hypertension Grandmother Heart disease Essential hypertension Stroke Social History household members: spouse Smoking Status: Never smoker alcohol intake: never Discharge Plan Discharge Plan Patient Disposition: Home Provider Discharge Comment: -please follow-up with [facility] at the end of next week -Okay to shower -Do not submerge wounds in water until seen in follow-up. -No lifting >20 lbs x 4 weeks. -No driving while taking narcotics. Discharge orders & Medications Prescriptions: New amoxicillin-pot clavulanate [Augmentin] 875-125 mg tablet 1 tab PO BID Qty: 14 0RF metronidazole 500 mg tablet 500 mg PO BID Qty: 14 0RF oxycodone 10 mg tablet 10 mg PO Q4H PRN (Reason: pain) Qty: 50 0RF Continued cholecalciferol (vitamin D3) [Vitamin D3] 2,000 UNIT capsule 2,000 unit PO DAILY Qty: 0 0RF doxycycline monohydrate [Oracea] 40 mg Capsule,Ir - Delay Rel,Biphase 40 mg PO DAILY 0RF celecoxib [Celebrex] 200 mg Capsule 200 mg PO BID Qty: 40 0RF Follow up/Referrals: Benedicto Zhao MD [Physician] - 11/16/21 Diet/Activity/Treatments Diet: Diet as Tolerated Skin/Wound/Dressing Care Report to your healthcare provider any signs of infection, such as:: chills, fever, increased pain, unusual drainage and unusual redness Visit Report/Discharge Packet Instructions: How to Care for Your Colostomy or Ileostomy, DI for Nausea -- Adult, [facility]: Wound Care Discharge Data Primary Care Provider: Eliz Nuñez VTE Deep Vein Thrombosis/Pulmonary Embolism Present on Admission: No
--- NOTE | 2021-11-12 10:46 | PT-IP ANOTE ---
Pt refused d/t wanting to take a shower and thinking she would be too tired.
[2021-11-13] MEDS: PIPERACILLIN/TAZO 3.375 GM in SODIUM CHLORIDE 0.9% 100 ML 25 ML IV (02:15)
[2021-11-13] MEDS: KETOROLAC 30 MG/ML VIAL IV (02:52)
[2021-11-13 06:19] VITALS: BP 156/92; PULSE 73; RESP 16; TEMP 36.2; O2SAT 99
--- NOTE | 2021-11-13 06:41 | PC.NURSE ---
Dr. Wheeler was call twice last night due to patient having increase serosanguineous/sanguineous drainage from her mid incision and with increase pain to that area. Dr. Wheeler order a CT scan and to continue to monitor patient. Patient IVF were also discontinue due to increase edema to her BLE.
[2021-11-13 08:00] VITALS: BP 165/86; PULSE 79; RESP 18; TEMP 36.6; O2SAT 98
--- NOTE | 2021-11-13 10:26 | CM.DPC ---
DCP Cont: Patient called this life care planner's phone number, asking for Cici. Let her know that she is not in today, and offered assistance. She wanted to know when she would be back, and this life care planner let her know she is unsure. Confirmed that she is discharging home today. Asked her what type of assistance she needed, and she indicated, Cici gave me an AARP number, and I don't think it is the right number. Encouraged her to call the admission counselors for this type of information, for they have access to insurance companies. According to Cici's note, she had also encouraged her to call them, and Cici had given her a second ho application. Ensured with her that [facility] has been ordered. Encouraged her to call admission counselors tomorrow and speak to them regarding getting numbers for her insurance, since they are closed today. Called [facility] and spoke to Pennie. Updated her that patient is discharging home today. She indicated, they have all of her information, already spoke to spouse, and should be able to see her tomorrow. P: Patient is discharging home today with [facility]. Hien Murray RN/Pot Operator
--- NOTE | 2021-11-13 14:06 | PT-IP ANOTE ---
Contacted pt for treatment. She was dressed and waiting for her ride home. She stated she preferred to save her energy for the transfer. She noted she has a FWW and BSC for home.
--- NOTE | 2021-11-13 14:51 | PC.NURSE ---
Discharge Note Patient A&O, VSS, RA, no complaints of pain/discomfort. Colostomy care appliance change done at bedside x2. Yesterday with and today with patient and this RN. Dr Fletcher updated on patient this AM, no changes per CT and ok to DC home. Patient updated on CT scan, all questions/concerns addressed. Discharge instructions reviewed with patient and at bedside. Ostomy supplies given to patient until home health is able to see patient tomorrow. PIV discontinued. All belongings packed and given to patient. Patient taken down via wheelchair to [facility].
--- NOTE | 2021-11-14 15:23 | CM.DPNOTE ---
Late entry: Romina from [facility] called and left a vm; said they will contact patient to schedule services. I relayed this information to Val. Mena Lisa CM Asst.
== END 2021-11-13 14:45 | disposition home health service (06) | DRG 329 ==
LOC: ED 10:29 → AC 10:48 → ICU 11:28 → AC 11-07 17:24
PROVIDERS: Admitting Provider Surgery; Emergency Provider Emergency Medicine; PCP Nurse Practitioner Family; Referring Provider Emergency Medicine; Visit Provider Surgery
PROC: 0DTN0ZZ Resection of Sigmoid Colon, Open Approach (ICD-10-PCS; CPT 49000; principal; 2021-11-06 11:00)
DX: C19 Malignant neoplasm of rectosigmoid junction (principal); K65.0 Generalized (acute) peritonitis; A41.9 Sepsis, unspecified organism; R65.21 Severe sepsis with septic shock; K57.20 Diverticulitis of large intestine with perforation and abscess without bleeding; B96.20 Unspecified Escherichia coli [E. coli] as the cause of diseases classified elsewhere; R33.9 Retention of urine, unspecified; D64.89 Other specified anemias; Z20.822 Contact with and (suspected) exposure to COVID-19; Z86.16 Personal history of COVID-19
CPT/HCPCS: 36415; 44143; 71045; 71275; 74018; 74177; 80048; 80053; 81003; 81015; 82550; 82962; 83605; 83690; 83735; 83880; 84100; 84145; 84484; 85007; 85025; 85379; 85610; 85730; 87040; 87070; 87075; 87077; 87086; 87186; 87205; 87635; 87797; 93005; 96361; 96365; 96375; 97116; 97162; 97530; 99222; 99284; 99285; C9803; C9113; J0330; J1100; J1170; J1650; J1885; J2060; J2250; J2270; J2405; J2543; J2704; J2765; J3010; Q9967

== ENCOUNTER → 2021-11-30 12:47 | Outpatient (CLI) | payer OTHER, SELFPAY ==
[2021-11-30 12:43] VITALS: BMI 31.0
[2021-11-30 14:03] LABS: Add Manual Diff / Slide Review NO; Basophils Absolute Auto 100 /uL (0-100); Basophils Percent Auto 0.8 % (0-2); Eosinophils Absolute Auto 200 /uL (0-450); Hematocrit 39.2 % (36-46); Hemoglobin 12.9 g/dL (12.0-16.0); Lymphocytes Absolute Auto 1100 /uL (1100-4500); Lymphocytes Percent Auto 17.1 % (25-40); Mean Corpuscular HGB Conc 32.9 % (30-36); Mean Corpuscular Hemoglobin 29.3 PG (26-34); Monocytes Absolute Auto 600 /uL (0-900); Monocytes Percent Auto 8.9 % (3-14); Neutrophils Absolute Auto 4600 /uL (1500-7000); Neutrophils Percent Auto 70.2 % (50-75); Platelet Count 488 X10^3/uL (150-400); Red Blood Cell Count 4.41 X10^6/uL (4.0-5.2); Red Cell Distribution Width 15.6 % (11.6-14.8); White Blood Cell Count 6.6 X10^3/uL (4.5-11.0)
== END ==
PROVIDERS: PCP Nurse Practitioner Family; Referring Provider Surgery; Visit Provider Surgery
DX: C18.9 Malignant neoplasm of colon, unspecified (principal)
CPT/HCPCS: 36415; 85025

== ENCOUNTER → 2022-03-02 14:59 | Outpatient (CLI) | payer OTHER, SELFPAY ==
[2021-11-30 12:43] VITALS: BMI 31.0
[2022-03-02 16:22] LABS: Free T3, Triiodothyronine Free 3.18 pg/mL (2.77-5.27)
[2022-03-02 16:36] LABS: Thyroid Stimulating Hormone 0.894 uIU/mL (0.47-4.68)
[2022-03-03 18:08] LABS: Anti Thyroglobulin Antibody <1.0 IU/mL (0.0-0.9); Thyroid Peroxidase Antibodies 72 IU/mL (0-34)
[2022-03-05 15:07] LABS: Estrogen 66 pg/mL (.)
[2022-03-21 02:21] LABS: % Free Progesterone 2.8 % (.); Free Progesterone <0.28 ng/dL (.); Progesterone, Serum <10 ng/dL (.)
== END ==
PROVIDERS: PCP Family Medicine; Referring Provider Family Medicine; Visit Provider Family Medicine
DX: E03.8 Other specified hypothyroidism (principal); E06.3 Autoimmune thyroiditis; L65.9 Nonscarring hair loss, unspecified; Z90.710 Acquired absence of both cervix and uterus
CPT/HCPCS: 36415; 82672; 84144; 84439; 84443; 84481; 84999; 86376; 86800

== ENCOUNTER → 2022-07-09 16:48 | Outpatient (CLI) | payer OTHER, SELFPAY ==
[2021-11-30 12:43] VITALS: BMI 31.0
[2022-07-09 17:05] LABS: Add Manual Diff / Slide Review NO; Basophils Absolute Auto 0 /uL (0-100); Basophils Percent Auto 0.6 % (0-2); Eosinophils Absolute Auto 100 /uL (0-450); Eosinophils Percent Auto 2.6 % (2-4); Hematocrit 41.7 % (36-46); Hemoglobin 13.7 g/dL (12.0-16.0); Lymphocytes Absolute Auto 1400 /uL (1100-4500); Lymphocytes Percent Auto 32.8 % (25-40); Mean Corpuscular HGB Conc 32.8 % (30-36); Mean Corpuscular Hemoglobin 25.3 PG (26-34); Mean Corpuscular Volume 77.4 fL (80-100); Monocytes Absolute Auto 300 /uL (0-900); Monocytes Percent Auto 6.8 % (3-14); Neutrophils Absolute Auto 2500 /uL (1500-7000); Neutrophils Percent Auto 57.2 % (50-75); Platelet Count 277 X10^3/uL (150-400); Red Blood Cell Count 5.39 X10^6/uL (4.0-5.2); Red Cell Distribution Width 18.4 % (11.6-14.8); White Blood Cell Count 4.3 X10^3/uL (4.5-11.0)
[2022-07-09 17:31] LABS: Alanine Aminotransferase 16 IU/L (<35); Albumin 4.1 g/dL (3.5-5.0); Albumin Globulin Ratio 1.2 (1.0-2.8); Alkaline Phosphatase 85 U/L (38-126); Aspartate Aminotransferase 24 IU/L (14-36); Bilirubin Total 0.5 mg/dL (0.2-1.3); Blood Urea Nitrogen 13 mg/dL (7-17); C-Reactive Protein Quant < 0.5 mg/dL (<1.0); Calcium 8.9 mg/dL (8.4-10.2); Carbon Dioxide 28 mmol/L (22-32); Chloride 104 mmol/L (98-107); Estimated Glomerular Filt Rate > 60 mL/min (>60); Globulin 3.3 g/dL (1.7-4.1); Glucose 91 mg/dL (80-110); HEMOLYSIS < 15 (0-50); Lactate (Lactic Acid) 0.6 mmol/L (0.7-2.1); Potassium 4.3 mmol/L (3.4-5.1); Sodium 138 mmol/L (137-145); Total Protein 7.4 g/dL (6.3-8.2)
[2022-07-09 17:45] LABS: Erythrocyte Sedimentation Rate 12 MM/HR (0-20)
[2022-07-09 18:00] LABS: Carcinoembryonic Antigen 10.4 ng/mL (0.1-3.0)
== END ==
PROVIDERS: PCP Family Medicine; Referring Provider Pediatrics; Visit Provider Pediatrics
DX: C18.9 Malignant neoplasm of colon, unspecified (principal); R19.00 Intra-abdominal and pelvic swelling, mass and lump, unspecified site; R53.83 Other fatigue
CPT/HCPCS: 36415; 80053; 82378; 83605; 85025; 85651; 86140

== ENCOUNTER → 2022-07-13 07:56 | Outpatient (CLI) | payer OTHER, SELFPAY ==
[2021-11-30 12:43] VITALS: BMI 31.0
--- NOTE | 2022-07-13 08:01 | DI.US.S_ITS ---
PROCEDURE: US ABDOMEN LIMITED INDICATIONS: LUMP ABOVE SCAR TECHNIQUE: Real-time focused scanning was performed of the abdomen, with image documentation. COMPARISON: None. FINDINGS: There is scarring at the area of interest. There is no residual or recurrent hernia identified. Anterior abdominal wall fascia appears intact at the area of concern. There is no mass, fluid collection, or other abnormality identified. IMPRESSION: Scarring at the area of interest with no recurrent or residual hernia, mass, fluid collection, or other abnormality identified. Dictated by: Chung Reyna M.D. on 07/13/2022 at 8:37 Approved by: Chung Reyna M.D. on 07/13/2022 at 8:38
== END ==
PROVIDERS: PCP Family Medicine; Referring Provider Pediatrics; Visit Provider Pediatrics
DX: C18.7 Malignant neoplasm of sigmoid colon (principal); R19.05 Periumbilic swelling, mass or lump; L90.5 Scar conditions and fibrosis of skin
CPT/HCPCS: 76705

== ENCOUNTER → 2022-07-16 09:18 | Outpatient (CLI) | payer OTHER, SELFPAY ==
[2021-11-30 12:43] VITALS: BMI 31.0
--- NOTE | 2022-07-16 09:21 | DI.CT.S_ITS ---
PROCEDURE: CT ABDOMEN PELVIS W CON INDICATIONS: rectosigmoid cancer w abd mass, malig vs hernia vs other TECHNIQUE: After the administration of oral and intravenous contrast, axial sections were acquired from the lung bases to the pubic symphysis. Coronal and sagittal reformats were performed. For radiation dose reduction, the following was used: automated exposure control, adjustment of mA and/or kV according to patient size. COMPARISON:[facility], CT, CT ABDOMEN PELVIS W CON, 11/12/2021, 22:45. FINDINGS: Image quality: Excellent. Lung bases: Previously seen small to moderate bilateral pleural effusions have resolved. There is a calcification in the left costophrenic angle posteromedially. Heart: No significant findings. ABDOMEN: Liver: The liver has no intrahepatic biliary ductal dilatation or mass. Gallbladder: Status post cholecystectomy. Biliary ducts: No intrahepatic biliary ductal dilatation. No extrahepatic biliary ductal dilatation. Pancreas: The pancreas has no mass or ductal dilatation. There is no peripancreatic inflammation. Spleen: Multiple punctate calcifications in the spleen. Adrenal Glands: No hypertrophy or nodules. Kidneys and Ureters: The kidneys have no solid or cystic masses. There is no nephroureteral calculus or hydronephrosis. Stomach and Bowel: Stomach, small bowel loops, and colon are unremarkable. Increased stool in the large bowel consistent with constipation. Peritoneum: No abnormal intraperitoneal fluid. No free air. Ventral Wall: Postoperative changes of the anterior abdominal wall with rectus diastasis. Abdominal Nodes: No retroperitoneal or mesenteric adenopathy by size criteria. Vessels: Aorta and inferior vena cava are normal in size. PELVIS: Pelvic Organs: No pelvic mass. Bladder: Unremarkable. Pelvic Nodes: No enlarged lymph nodes. Miscellaneous: No inguinal hernias are seen. Bones: Unremarkable. IMPRESSION: 1. Interval resolution of bilateral pleural effusions and pericardial effusion. 2. Postoperative changes of the anterior abdominal wall rectus diastasis containing small bowel. Dictated by: Gary Do M.D. on 07/16/2022 at 12:23 Approved by: Gary Do M.D. on 07/16/2022 at 12:34
== END ==
PROVIDERS: PCP Family Medicine; Referring Provider Pediatrics; Visit Provider Pediatrics
DX: M62.08 Separation of muscle (nontraumatic), other site (principal); C18.7 Malignant neoplasm of sigmoid colon; R19.05 Periumbilic swelling, mass or lump; Z90.710 Acquired absence of both cervix and uterus
CPT/HCPCS: 74177; Q9967

== ENCOUNTER → 2023-07-25 16:36 | Outpatient (CLI) | payer OTHER, SELFPAY ==
[2022-08-01 15:53] VITALS: BMI 31.0
[2023-07-25 18:09] LABS: Add Manual Diff / Slide Review NO; Basophils Absolute Auto 0 /uL (0-100); Basophils Percent Auto 0.6 % (0-2); Eosinophils Absolute Auto 200 /uL (0-450); Eosinophils Percent Auto 2.7 % (2-4); Hematocrit 46.4 % (36-46); Hemoglobin 15.9 g/dL (12.0-16.0); Lymphocytes Absolute Auto 1200 /uL (1100-4500); Lymphocytes Percent Auto 20.4 % (25-40); Mean Corpuscular HGB Conc 34.2 % (30-36); Mean Corpuscular Hemoglobin 31.5 PG (26-34); Mean Corpuscular Volume 92.2 fL (80-100); Monocytes Absolute Auto 500 /uL (0-900); Monocytes Percent Auto 7.9 % (3-14); Neutrophils Absolute Auto 4100 /uL (1500-7000); Neutrophils Percent Auto 68.4 % (50-75); Platelet Count 317 X10^3/uL (150-400); Red Blood Cell Count 5.03 X10^6/uL (4.0-5.2); Red Cell Distribution Width 13.9 % (11.6-14.8)
[2023-07-25 18:37] LABS: Alanine Aminotransferase 19 IU/L (<35); Albumin 4.1 g/dL (3.5-5.0); Albumin Globulin Ratio 1.3 (1.0-2.8); Alkaline Phosphatase 115 U/L (38-126); Aspartate Aminotransferase 24 IU/L (14-36); BUN Creatinine Ratio 23.3 (6-22); Bilirubin Total 0.5 mg/dL (0.2-1.3); Blood Urea Nitrogen 17 mg/dL (7-17); Calcium 9.7 mg/dL (8.4-10.2); Carbon Dioxide 28 mmol/L (22-32); Chloride 103 mmol/L (98-107); Estimated Glomerular Filt Rate > 60 mL/min (>60); Globulin 3.2 g/dL (1.7-4.1); Glucose 91 mg/dL (80-110); HEMOLYSIS < 15 (0-50); Potassium 4.4 mmol/L (3.4-5.1); Sodium 140 mmol/L (137-145); Total Protein 7.3 g/dL (6.3-8.2)
[2023-07-25 18:39] LABS: Monotest Negative (Negative)
[2023-07-25 19:07] LABS: TSH w/ Reflex to FT4 1.09 uIU/mL (0.47-4.68)
[2023-07-27 20:06] LABS: Anti Thyroglobulin Antibody <1.0 IU/mL (0.0-0.9); Thyroid Peroxidase Antibodies 95 IU/mL (0-34)
== END ==
PROVIDERS: PCP Family Medicine; Referring Provider Physician Assistant; Visit Provider Physician Assistant
DX: C18.9 Malignant neoplasm of colon, unspecified (principal); J39.2 Other diseases of pharynx; E06.3 Autoimmune thyroiditis
CPT/HCPCS: 36415; 80053; 82378; 84443; 85025; 86318; 86376; 86800

== ENCOUNTER → 2023-07-31 14:17 | Outpatient (CLI) | payer OTHER, SELFPAY ==
[2022-08-01 15:53] VITALS: BMI 31.0
--- NOTE | 2023-07-31 14:18 | DI.CT.S_ITS ---
PROCEDURE: CT SOFT TISSUE NECK W CON INDICATIONS: mass leftside, hx metastatic colon cancer TECHNIQUE: After the administration of intravenous contrast, 3.0 mm axial sections acquired from the sella to the aortic arch. Additional oblique axial 3.0 mm sections acquired through the pharynx. 3 mm thick coronal and sagittal reformats were generated. For radiation dose reduction, the following was used: automated exposure control. COMPARISON: [facility], CT, CT CHEST ABDOMEN PELVIS WITH CONTRAST, 04/17/2023, 10:17. FINDINGS: Skull Base: The visualized intracranial contents, skull, and orbits are unremarkable. Visualized paranasal sinuses are clear. Pharynx and Larynx: The nasopharyngeal airway is patent and midline. Parapharyngeal soft tissues including palatine tonsils and base of the tongue are normal. Retropharyngeal space unremarkable. Normal appearance of the false and true vocal cords. Muscles and Fascial Planes: Fascial planes are well maintained. No abscess or mass lesion. Lymph Nodes: Prominent level 2 B node on the right measures 0.6 x 0.9 cm. No adenopathy.6 Vasculature: Unremarkable. Submandibular and Parotid Glands: Normal in size and attenuation. Thyroid: Rising from the left lobe of the thyroid, there is an aggressive appearing nodule measuring 1.8 x 1.8 x 2.6 cm, previously 0.6 by 0.6 cm with low-density internal core. Thyroid is diffusely nodular and heterogenous as well. Bones: No acute fracture. Normal bone mineralization. Degenerative disc disease and arthropathy without evidence intrinsic lesion Lung Apices: Right upper lobe pulmonary nodule measures 1.1 cm, previously 0.7 cm IMPRESSION: 1. Enlarging aggressive appearing left thyroid nodule. Differential would include both primary and secondary malignant etiologies. Consider percutaneous ultrasound-guided biopsy. 2. Right level 2B prominent lymph node without evidence of ethel cervical adenopathy. Approved by: Cory Anders M.D. on 07/31/2023 at 16:01
== END ==
PROVIDERS: PCP Family Medicine; Referring Provider Physician Assistant; Visit Provider Physician Assistant
DX: J39.2 Other diseases of pharynx (principal); C18.9 Malignant neoplasm of colon, unspecified; E04.1 Nontoxic single thyroid nodule; R22.1 Localized swelling, mass and lump, neck; R07.0 Pain in throat
CPT/HCPCS: 70491; Q9967

== ENCOUNTER → 2023-12-17 09:57 | Outpatient (CLI) | payer OTHER, SELFPAY ==
[2022-08-01 15:53] VITALS: BMI 31.0
== END ==
PROVIDERS: PCP Family Medicine; Visit Provider Student in an Organized Health Care Education/Training Program
DX: R35.0 Frequency of micturition (principal)
CPT/HCPCS: 87086

== ENCOUNTER 2023-12-19 15:31 | Emergency (ER) | payer OTHER, SELFPAY ==
[2022-08-01 15:53] VITALS: BMI 31.0
[2023-12-19] VITALS (7 sets, daily range): BP systolic 154–189; BP diastolic 90–94; PULSE 76–90; RESP 16–20; TEMP 36.9; O2SAT 95–99; BMI 28.8
--- NOTE | 2023-12-19 15:45 | DI.CT.S_ITS ---
PROCEDURE: CT HEAD/BRAIN WO CON INDICATIONS: Left-sided weakness, history of metastatic colon cancer TECHNIQUE: Noncontrast 4.5 mm thick angled axial sections acquired from the foramen magnum to the vertex, with coronal and sagittal reformats. For radiation dose reduction, the following was used: automated exposure control, adjustment of mA and/or kV according to patient size. COMPARISON: None. FINDINGS: Image quality: Diagnostic. Brain: There is a 1.9 cm mildly hyperdense mass in the parafalcine right frontal lobe cortex near the vertex. There is moderate surrounding vasogenic edema with slight effacement of sulci and hypodensity in the cortex at the vertex. No definite hemorrhage. Additionally, there is rounded vasogenic edema in the right cerebellar hemisphere white matter. There is amorphous vasogenic edema distorting the cerebellar vermis, pontine architecture, and slightly displacing the 4th ventricle to the left. Basal cisterns posteriorly are mildly effaced. No ethel herniation. There is no suspicious extra-axial or intraventricular hemorrhage. Lateral ventricles are symmetric and normal size. The 3rd ventricle remains midline. Skull and face: Calvarium and visualized facial bones appear intact, without suspicious lesions. Sinuses: Visualized sinuses and mastoids are clear. IMPRESSION: 1. 1.9 cm left frontal lobe mass with surrounding edema. 2. Edema, mild mass effect, and loss of caldwell-white matter differentiation in the cerebellum, right greater than left, and pontine which is slightly effacing basal cisterns. 3. Patient has a history of known malignancy and metastatic disease is most likely. 4. Discussed with Dr. Gupta in the emergency room at 17:10 hours. Dictated by: Heydi Heck M.D. on 12/19/2023 at 17:03 Approved by: Heydi Heck M.D. on 12/19/2023 at 17:14
--- NOTE | 2023-12-19 15:46 | DI.CT.S_ITS ---
PROCEDURE: CT ANGIO HEAD AND NECK INDICATIONS: Left-sided weakness, history of metastatic colon cancer TECHNIQUE: After the administration of intravenous contrast, 1 mm thick sections acquired from the aortic arch through the [place]. 3-dimensional wviafhy-ujmtwunxo-nqvqysvmre (MIP) and/or volume rendering reformats were acquired of the central intracranial vasculature and neck separately. For radiation dose reduction, the following was used: automated exposure control, adjustment of mA and/or kV according to patient size. COMPARISON: [facility], CT, CT SOFT TISSUE NECK W CON, 07/31/2023, 14:40. [facility], CT, CT HEAD/BRAIN WO CON, 12/19/2023, 16:50. [facility], CT, CT CHEST ABDOMEN PELVIS WITH CONTRAST, 04/17/2023, 10:17. FINDINGS: Image quality: Diagnostic. BRAIN: CSF spaces: Ventricles are normal in size and shape. The right basal cistern is effaced. The left distal cistern is narrowed. No ethel extra-axial fluid collections are seen. No extra-axial fluid collections. Brain: There is enhancing mass seen involving the superior medial right frontal lobe, as on series 9, image 53, measuring up to 18 mm. Moderate surrounding edema is seen. There is a poorly enhancing mass seen within the right lateral cerebellum, measuring up to 3.2 cm. Mass effect can be seen, with shift of the 4th ventricle slightly to the right. Skull and face: Calvarium and facial bones appear intact, without suspicious lesions. Orbits appear normal. Sinuses: Sinuses and mastoids are clear. HEAD CT ANGIOGRAPHY: Anterior circulation: Intracranial internal carotid arteries are normal in size and flow. The flow within the paired anterior cerebral arteries is normal and symmetric. The flow within the middle cerebral arteries is normal and symmetric. The anterior communicating artery is seen. No aneurysms are seen. Posterior circulation: Visualized portions of the vertebral arteries demonstrate normal caliber, and join to form a normal appearing basilar artery. There is a prominent right posterior communicating artery seen, with an accompanying diminutive right P1 segment. This is attributed to a type origin of the right posterior cerebral artery, which is considered to be a normal developmental variant of typically no clinical consequence. The flow within the posterior cerebral arteries is normal and symmetric. No aneurysms are seen. NECK CT ANGIOGRAPHY: Carotid system: The great vessels demonstrate a conventional anatomy as they arise from the aortic arch. The origins of the common carotid arteries appear patent. The common carotid arteries demonstrate normal caliber and courses. The bifurcation regions are both widely patent. The internal carotid arteries demonstrate normal calibers and courses. Posterior circulation: The origins of the vertebral arteries both appear widely patent. The more superior extracranial portions of both vertebral arteries also demonstrate normal courses and calibers. They join to form a normal appearing basilar artery. Soft tissues: Visualized neck soft tissues demonstrate no suspicious abnormalities. Multiple thyroid masses are seen, left worse than right. Bilateral pulmonary masses are seen, measuring up to 5.3 by 4.5 cm within the left lower lobe and measuring 4.7 x 3.7 cm within the superior segment of the right lower lobe. Bones: No suspicious bony lesions. Visualized cervical spine appears normally aligned. IMPRESSION: 2 intracranial masses are seen, including a 3.2 cm right lateral cerebellar mass. There is associated mass effect, with shift of the 4th ventricle to the left and effacement of the right basal cistern. The left basal cistern is narrowed. - Please consider neurosurgical consultation. Bilateral pulmonary metastatic disease can be seen, which is worse than on 04/17/2023. Bilateral thyroid masses can be seen. No significant intracranial arterial abnormality is seen. No significant abnormality is seen within the arteries of the neck. Note: Case discussed by telephone with Dr. Gupta at 5:12 p.m. [place] time on December 19, 2023. Any quantitative measurements of stenosis were performed using NASCET criteria. Dictated by: John Estevez M.D. on 12/19/2023 at 16:05 Approved by: John Estevez M.D. on 12/19/2023 at 16:13
[2023-12-19 16:19] LABS: Add Manual Diff / Slide Review NO; Basophils Absolute Auto 100 /uL (0-100); Basophils Percent Auto 0.8 % (0-2); Eosinophils Absolute Auto 100 /uL (0-450); Eosinophils Percent Auto 1.5 % (2-4); Hematocrit 44.9 % (36-46); Hemoglobin 15.2 g/dL (12.0-16.0); Lymphocytes Absolute Auto 1100 /uL (1100-4500); Lymphocytes Percent Auto 14.2 % (25-40); Mean Corpuscular HGB Conc 33.8 % (30-36); Mean Corpuscular Volume 88.8 fL (80-100); Monocytes Absolute Auto 600 /uL (0-900); Monocytes Percent Auto 7.5 % (3-14); Neutrophils Absolute Auto 5700 /uL (1500-7000); Platelet Count 361 X10^3/uL (150-400); Red Blood Cell Count 5.05 X10^6/uL (4.0-5.2); White Blood Cell Count 7.4 X10^3/uL (4.5-11.0)
[2023-12-19 16:30] LABS: Alanine Aminotransferase 16 IU/L (<35); Albumin 4.3 g/dL (3.5-5.0); Albumin Globulin Ratio 1.1 (1.0-2.8); Alkaline Phosphatase 95 U/L (38-126); Aspartate Aminotransferase 32 IU/L (14-36); Bilirubin Total 0.8 mg/dL (0.2-1.3); Blood Urea Nitrogen 18 mg/dL (7-17); Calcium 9.9 mg/dL (8.4-10.2); Carbon Dioxide 25 mmol/L (22-32); Chloride 102 mmol/L (98-107); Estimated Glomerular Filt Rate > 60 mL/min (>60); Glucose 111 mg/dL (80-110); Lipase 112 U/L (23-300); Potassium 4.4 mmol/L (3.4-5.1); Sodium 138 mmol/L (137-145); Total Protein 8.3 g/dL (6.3-8.2)
[2023-12-19 16:32] LABS: HEMOLYSIS 95 (0-50)
--- NOTE | 2023-12-19 16:40 | PC.NURSE ---
Pt reports left sided arm and leg weakness for the past 2 days. She has a history of colon cancer which has metastasized to her neck and lungs. She is not undergoing treatment for cancer.
--- NOTE | 2023-12-19 17:10 | ED_ITS ---
HPI - Neuro Symptoms/Deficit General Chief Complaint: Neuro Symptoms/Deficit Stated Complaint: thinks she is having a stroke Time Seen by Provider: 12/19/23 15:35 Source: patient Mode of arrival: Ambulatory Limitations: no limitations History of Present Illness HPI Narrative: Patient is a 63-year-old female. Has a known history of metastatic colon cancer. States she has Mets to her thyroid/neck and also to her lungs. She was diagnosed in 2019. She has not undergone any chemotherapy or radiation. She has seen Oncology. She stated that after discussions with the oncologist she opted not to have chemotherapy because of the side effects. She states up until 2 weeks ago she was at her normal state of health. Approximately 2 weeks ago she had a massage. She states she spent an extended amount of time on her abdomen. Ever since that time she has had progressive symptoms to include headache a couple weeks ago for which she was seen at the walk-in clinic. Had a brief episode of vertigo. Was told that she had a urinary tract infection however subsequent culture was negative so she was told to stop the antibiotics which was Macrobid. She also states she has had ?pinkeye? for the past couple weeks. Has had ointment without any improvement. She was also having weakness in her left arm and in her left leg. Normally she is able to ambulate without any assistance however now she either has to hold onto the wall or use a walking stick. She has not fallen. Has had some episodes of urinary incontinence. She denies fevers. No chest pain. No abdominal pain. On Anticoagulants: No Related Data Home Medications Medication Instructions Recorded Confirmed cholecalciferol (vitamin D3) 50 2,000 unit PO DAILY ##0 08/20/17 12/17/23 mcg (2,000 unit) capsule (Vitamin D3) Vitamin b PO 07/31/22 12/17/23 ascorbate calcium (vitamin C) 500 500 mg PO BID 07/31/22 12/17/23 mg tablet ashwaganda PO 07/31/22 12/17/23 barley juice powder PO 07/31/22 12/17/23 cat's claw (uncaria tomentosa) PO 07/31/22 12/17/23 chaga PO 07/31/22 12/17/23 lemon balm PO 07/31/22 12/17/23 lysine 500 mg tablet (L-Lysine) 500 mg PO BID 07/31/22 12/17/23 melatonin 5 mg capsule 10 mg PO DAILY 07/31/22 12/17/23 milk thistle PO 07/31/22 12/17/23 quercetin PO 07/31/22 12/17/23 selenium PO 07/31/22 12/17/23 spirilina PO 07/31/22 12/17/23 zinc acetate 50 mg (zinc) capsule 50 mg PO BID 07/31/22 12/17/23 Previous Rx's Medication Instructions Recorded celecoxib 200 mg capsule (Celebrex) 200 mg PO BID #40 caps 10/30/21 oxycodone 10 mg tablet 10 mg PO Q4H PRN pain #50 tabs 11/12/21 miscellaneous medical supply #1 ea 11/24/21 amoxicillin 875 mg tablet 875 mg PO Q12H #20 tabs 08/06/23 nitrofurantoin 100 mg PO Q12H 5 days #10 caps 12/17/23 monohydrate/macrocrystals 100 mg capsule (Macrobid) dexamethasone 4 mg tablet 4 mg PO BID #30 tabs 12/19/23 Allergies Allergy/AdvReac Type Severity Reaction Status Date / Time ciprofloxacin [CIPROFLOXACIN] Allergy Unknown Verified 12/17/23 10:15 levofloxacin [From LEVAQUIN] Allergy Unknown Verified 12/17/23 10:15 gluten Allergy Verified 12/17/23 10:15 fluoroquinolones Allergy Uncoded 12/17/23 10:15 Review of Systems Review of Systems ROS Unobtainable: All systems reviewed & are unremarkable except as noted in HPI and below Hematologic/Lymphatic On Anticoagulants: No Patient History Medical History Colon cancer metastasized to multiple sites Carpal tunnel syndrome of right wrist Abdominal mass Hair loss Hemorrhoids Fatigue Vitamin D deficiency Anhidrosis Chronic fatigue Mikayla-Read infection Reactive hypoglycemia Raynaud phenomenon Mihaela's disease Facet arthropathy, lumbar Herniated nucleus pulposus, L4-5 BMI 31.0-31.9,adult Surgical History S/P total hysterectomy History of ileostomy (01/2022) History of total abdominal hysterectomy and bilateral salpingo-oophorectomy (01/2022) Status post parathyroidectomy Status post cholecystectomy Family History Brother Age: 69 Arthritis of knee Essential hypertension High cholesterol Father Stomach cancer Heart disease Essential hypertension High cholesterol Kidney problem Grandfather Heart disease Essential hypertension Stroke Mother Heart disease Essential hypertension High cholesterol Grandfather Heart disease Essential hypertension Grandmother Heart disease Essential hypertension Stroke Social History household members: spouse Smoking Status: Never smoker alcohol intake: never Smoking Status: Never smoker alcohol intake frequency: 0-2 drinks per day Substance Use Type: does not use Exam Initial Vital Signs Initial Vital Signs: Vital Signs Pulse Rate 84 12/19/23 15:39 Pulse Oximetry 96 12/19/23 15:39 Const General: cooperative, comfortable and No ill appearing HENMT Head: normal to inspection and normocephalic Face and sinus: normal facial exam Mouth: oral mucosae normal and moist mucous membranes Eyes Pupils: PERRL EOM: EOM intact bilaterally Resp Effort & Inspection: normal respiratory effort Auscultation: clear to auscultation bilaterally Cardio Rate: regular rate Rhythm: regular rhythm GI Inspection: normal to inspection and non-distended Skin General: no rashes or lesions noted Neuro General: patient alert, patient awake, patient oriented x3 and moves all extremities Cognition: normal cognition Speech: speech normal Sensory Exam: no sensory deficits noted Other: She has 5/5 strength bilateral upper and lower extremities. Her weakness seems to be subjective. She potentially is only slightly weak on the left side of her leg compared to the right. Her njhq-ng-uloa bilaterally is unremarkable. Extrem Other: No gross deformities. Psych Appearance: grossly normal and well kempt Scores GCS [place] coma scale eye opening: Spontaneous [place] coma scale verbal response: Orientated [place] coma scale motor response: Obey commands [place] coma scale total score: 15 Course Orders Ordered: ED Orders 12/19/23 15:45 CT head/brain wo con Stat 12/19/23 15:46 CT angio head and neck Stat EKG-12 Lead Stat 12/19/23 15:58 Complete Blood Count AUTO DIFF Stat Comprehensive Metabolic Panel Stat Lipase Stat 12/19/23 17:25 Consult to [employer] - Set Up Mechanic Stat 12/19/23 17:44 Urine Microscopic Stat 12/19/23 18:19 Consult to Hospice Referral Stat Discontinued Medications Dexamethasone (Dexamethasone 10 Mg/Ml Vial) 10 mg IV NOW ONE Stop: 12/19/23 17:26 Last Admin: 12/19/23 18:00 Dose: 10 mg Documented By: CHUNG Vital Signs Vital signs: Vital Signs - 8 hr 12/19/23 15:39 12/19/23 15:40 12/19/23 15:40 Temperature Pulse Rate 84 90 Respiratory Rate Blood Pressure 189/90 H Pulse Oximetry 96 96 Oxygen Delivery Method 12/19/23 15:47 12/19/23 16:00 12/19/23 16:06 Temperature 98.4 F Pulse Rate 90 80 76 Respiratory Rate 16 16 16 Blood Pressure 189/90 H Pulse Oximetry 95 96 96 Oxygen Delivery Method Room Air Room Air Room Air 12/19/23 16:06 12/19/23 16:30 12/19/23 16:30 Temperature Pulse Rate 77 Respiratory Rate 20 Blood Pressure 158/90 H 154/94 H Pulse Oximetry 98 Oxygen Delivery Method 12/19/23 17:00 Temperature Pulse Rate 79 Respiratory Rate Blood Pressure Pulse Oximetry 99 Oxygen Delivery Method Room Air MDM - Neuro Symptoms/Deficit Medical Records Attestation: I reviewed the patient's medical records. Lab Data Attestation: I reviewed the patient's lab results. 12/19/23 15:58 12/19/23 15:58 Labs: Lab Results 12/19/23 12/19/23 Range/Units 15:58 17:44 WBC 7.4 (4.5-11.0) X10^3/uL RBC 5.05 (4.0-5.2) X10^6/uL Hgb 15.2 (12.0-16.0) g/dL Hct 44.9 (36-46) % MCV 88.8 (80-100) fL MCH 30.0 (26-34) PG MCHC 33.8 (30-36) % RDW 15.0 H (11.6-14.8) % Plt Count 361 (150-400) X10^3/uL Neut % (Auto) 76.0 H (50-75) % Lymph % (Auto) 14.2 L (25-40) % Campbell % (Auto) 7.5 (3-14) % Eos % (Auto) 1.5 L (2-4) % Baso % (Auto) 0.8 (0-2) % Neut # (Auto) 5700 (4294-7061) /uL Lymph # (Auto) 1100 (5529-9156) /uL Campbell # (Auto) 600 (0-900) /uL Eos # (Auto) 100 (0-450) /uL Baso # (Auto) 100 (0-100) /uL Sodium 138 (137-145) mmol/L Potassium 4.4 (3.4-5.1) mmol/L Chloride 102 (98-107) mmol/L Carbon Dioxide 25 (22-32) mmol/L BUN 18 H (7-17) mg/dL Creatinine 0.90 (0.52-1.04) mg/dL Estimated GFR > 60 (>60) mL/min BUN/Creatinine Ratio 20.0 (6-22) Glucose 111 H (80-110) mg/dL Calcium 9.9 (8.4-10.2) mg/dL Total Bilirubin 0.8 (0.2-1.3) mg/dL AST 32 (14-36) IU/L ALT 16 (<35) IU/L Alkaline Phosphatase 95 (38-126) U/L Total Protein 8.3 H (6.3-8.2) g/dL Albumin 4.3 (3.5-5.0) g/dL Globulin 4.0 (1.7-4.1) g/dL Albumin/Globulin Ratio 1.1 (1.0-2.8) Lipase 112 (23-300) U/L Urine RBC 1-5/hpf (0-5/HPF) Urine WBC 0-1/hpf (0-5/HPF) Ur Squamous Epith Cells 0-1 /hpf (0-5/HPF) Urine Bacteria None seen (None) Ur Culture Indicated? Cult not indicated Vol Urine Centrifuged 10ml (spun) Point of Care Testing Glucose POC 99 Urine Dip Bedside Urine Glucose Negative Bedside Urine Bilirubin - Negative Bedside Urine Ketone - Negative Urine Specific Mclean 1.015 Bedside Urine Occult Blood +/- Bedside Urine pH 6.5 Bedside Urine Protein - Negative Bedside Urine Urobilinogen - Negative Bedside Urine Nitrite - Negative Bedside Urine Leukocytes +/- [address] scan - head: Radiologist's Impression: PROCEDURE: CT HEAD/BRAIN WO CON INDICATIONS: Left-sided weakness, history of metastatic colon cancer TECHNIQUE: Noncontrast 4.5 mm thick angled axial sections acquired from the foramen magnum to the vertex, with coronal and sagittal reformats. For radiation dose reduction, the following was used: automated exposure control, adjustment of mA and/or kV according to patient size. COMPARISON: None. FINDINGS: Image quality: Diagnostic. Brain: There is a 1.9 cm mildly hyperdense mass in the parafalcine right frontal lobe cortex near the vertex. There is moderate surrounding vasogenic edema with slight effacement of sulci and hypodensity in the cortex at the vertex. No definite hemorrhage. Additionally, there is rounded vasogenic edema in the right cerebellar hemisphere white matter. There is amorphous vasogenic edema distorting the cerebellar vermis, pontine architecture, and slightly displacing the 4th ventricle to the left. Basal cisterns posteriorly are mildly effaced. No ethel herniation. There is no suspicious extra-axial or intraventricular hemorrhage. Lateral ventricles are symmetric and normal size. The 3rd ventricle remains midline. Skull and face: Calvarium and visualized facial bones appear intact, without suspicious lesions. Sinuses: Visualized sinuses and mastoids are clear. IMPRESSION: 1. 1.9 cm left frontal lobe mass with surrounding edema. 2. Edema, mild mass effect, and loss of caldwell-white matter differentiation in the cerebellum, right greater than left, and pontine which is slightly effacing basal cisterns. 3. Patient has a history of known malignancy and metastatic disease is most likely. 4. Discussed with Dr. Gupta in the emergency room at 17:10 hours. CTA - brain/neck: Radiologist's Impression: PROCEDURE: CT ANGIO HEAD AND NECK INDICATIONS: Left-sided weakness, history of metastatic colon cancer TECHNIQUE: After the administration of intravenous contrast, 1 mm thick sections acquired from the aortic arch through the [place] of [place]. 3-dimensional lcwchlu-mxsyldsls-mxilaynlcw (MIP) and/or volume rendering reformats were acquired of the central intracranial vasculature and neck separately. For radiation dose reduction, the following was used: automated exposure control, adjustment of mA and/or kV according to patient size. COMPARISON: [facility], CT, CT SOFT TISSUE NECK W CON, 07/31/2023, 14:40. [facility], CT, CT HEAD/BRAIN WO CON, 12/19/2023, 16:50. [facility], CT, CT CHEST ABDOMEN PELVIS WITH CONTRAST, 04/17/2023, 10:17. FINDINGS: Image quality: Diagnostic. BRAIN: CSF spaces: Ventricles are normal in size and shape. The right basal cistern is effaced. The left distal cistern is narrowed. No ethel extra-axial fluid collections are seen. No extra-axial fluid collections. Brain: There is enhancing mass seen involving the superior medial right frontal lobe, as on series 9, image 53, measuring up to 18 mm. Moderate surrounding edema is seen. There is a poorly enhancing mass seen within the right lateral cerebellum, measuring up to 3.2 cm. Mass effect can be seen, with shift of the 4th ventricle slightly to the right. Skull and face: Calvarium and facial bones appear intact, without suspicious lesions. Orbits appear normal. Sinuses: Sinuses and mastoids are clear. HEAD CT ANGIOGRAPHY: Anterior circulation: Intracranial internal carotid arteries are normal in size and flow. The flow within the paired anterior cerebral arteries is normal and symmetric. The flow within the middle cerebral arteries is normal and symmetric. The anterior communicating artery is seen. No aneurysms are seen. Posterior circulation: Visualized portions of the vertebral arteries demonstrate normal caliber, and join to form a normal appearing basilar artery. There is a prominent right posterior communicating artery seen, with an accompanying diminutive right P1 segment. This is attributed to a type origin of the right posterior cerebral artery, which is considered to be a normal developmental variant of typically no clinical consequence. The flow within the posterior cerebral arteries is normal and symmetric. No aneurysms are seen. NECK CT ANGIOGRAPHY: Carotid system: The great vessels demonstrate a conventional anatomy as they arise from the aortic arch. The origins of the common carotid arteries appear patent. The common carotid arteries demonstrate normal caliber and courses. The bifurcation regions are both widely patent. The internal carotid arteries demonstrate normal calibers and courses. Posterior circulation: The origins of the vertebral arteries both appear widely patent. The more superior extracranial portions of both vertebral arteries also demonstrate normal courses and calibers. They join to form a normal appearing basilar artery. Soft tissues: Visualized neck soft tissues demonstrate no suspicious abnormalities. Multiple thyroid masses are seen, left worse than right. Bilateral pulmonary masses are seen, measuring up to 5.3 by 4.5 cm within the left lower lobe and measuring 4.7 x 3.7 cm within the superior segment of the right lower lobe. Bones: No suspicious bony lesions. Visualized cervical spine appears normally aligned. IMPRESSION: 2 intracranial masses are seen, including a 3.2 cm right lateral cerebellar mass. There is associated mass effect, with shift of the 4th ventricle to the left and effacement of the right basal cistern. The left basal cistern is narrowed. - Please consider neurosurgical consultation. Bilateral pulmonary metastatic disease can be seen, which is worse than on 04/17/2023. Bilateral thyroid masses can be seen. No significant intracranial arterial abnormality is seen. No significant abnormality is seen within the arteries of the neck. Note: Case discussed by telephone with Dr. Gupta at 5:12 p.m. [place] time on December 19, 2023. ECG Data Attestation: I personally reviewed and interpreted this ECG as follows: Interpretation: Sinus rhythm Ventricular rate is 69 Normal axis Normal QRS Normal QTC No ST T wave changes MDM Narrative Medical decision making narrative: Patient has known colon cancer. Not undergoing treatment she has decided not to pursue chemotherapy or radiation. CT scan of the head does show metastatic disease which is a new finding. No signs of hemorrhage but there is swelling. She was given Decadron. Patient states that she has not changed her mind and does not want to pursue chemotherapy or radiation. There was no indication for admission to the hospital given that she does not want treatment. Patient was seen by social work. Hospice consultation placed. Will send home with oral steroids. She has an appointment with her primary care doctor's office tomorrow and then with her primary care doctor on the of this month. She was advised to keep the appointment on the and to call her primary doctor's office tomorrow. She was given return precautions. She expressed understanding and agreement. Discharge Plan Departure Patient Disposition: Home Clinical Impression: Colon cancer metastasized to multiple sites Activity Restrictions/Additional Instructions: I do recommend that you keep your scheduled appointment with your primary care doctor. Be sure that you call their office tomorrow to let them know about your visit today. A prescription for steroids was sent to [facility]. Please take them as directed. Return to the emergency department for new symptoms. Prescriptions: New dexamethasone 4 mg tablet 4 mg PO BID Qty: 30 0RF No Action nitrofurantoin monohyd/m-cryst [Macrobid] 100 mg capsule 100 mg PO Q12H 5 Days Qty: 10 0RF Rx Instructions: must administer with a meal/food cholecalciferol (vitamin D3) [Vitamin D3] 2,000 UNIT capsule 2,000 unit PO DAILY Qty: 0 (DME) miscellaneous medical supply Misc See Rx Instructions .ROUTE .MEDSUPPLY Qty: 1 0RF Rx Instructions: Disabled Parking Permit amoxicillin 875 mg tablet 875 mg PO Q12H Qty: 20 0RF ascorbate calcium (vitamin C) 500 mg tablet 500 mg PO BID lysine [L-Lysine] 500 mg tablet 500 mg PO BID Vitamin b PO selenium PO melatonin 5 mg capsule 10 mg PO DAILY zinc acetate 50 mg (zinc) capsule 50 mg PO BID quercetin PO milk thistle PO cat's claw (uncaria tomentosa) PO Rx Instructions: 10 drops lemon balm PO ashwaganda PO chaga PO barley juice powder PO spirilina PO celecoxib [Celebrex] 200 mg Capsule 200 mg PO BID Qty: 40 0RF oxycodone 10 mg tablet 10 mg PO Q4H PRN (Reason: pain) Qty: 50 0RF Referrals: Juan Lopez DO [Primary Care Provider] - Stand Alone Forms: Patient Portal/API
--- NOTE | 2023-12-19 17:54 | PC.NURSE ---
Patient's at bedside with other family. Her friend stepped out of the room and was immediately tearful. I walked her to a room with a recliner to sit in and provided snacks and juice.
[2023-12-19] MEDS: DEXAMETHASONE 10 MG/ML VIAL IV (18:00)
[2023-12-19 18:07] LABS: Bacteria Urine None Seen; Culture Indicated Urine Cult Not Indicated; RBC Urine 1-5/HPF (0-5/HPF); Squamous Epithelial Cell Urine 0-1 /HPF (0-5/HPF); Urine Volume 10mL (spun); WBC Urine 0-1/HPF (0-5/HPF)
--- NOTE | 2023-12-19 18:36 | CM.SWNOTE ---
ED MUSSEL OPENER Note MUSSEL OPENER receives consult due to patient's colon cancer metastasizing to brain. Patient is 63 y/o female who presents to ED due to concern for stroke symptoms. Patient's PCP is Dr. Lopez, patient has [facility] and [facility]. Patient has hx of metastaic colon cancer and mets to thyroid, neck and lungs. Per diagnostic imaging today patient's cancer has spread to brain. MUSSEL OPENER enters room to meet with patient, present is patient's spouse and teenage daughter. Patient resides in [place] with family. Present in ED today is also patient's friend. Patient endorses she is not interested in cancer treatment, MUSSEL OPENER discusses comfort care through hospice and patient family agree to services [facility] Patient typically uses a cane to walk. Patient and friend discuss that they recently came back from a trip to [facility] and patient engaged in snorkeling. MUSSEL OPENER calls [facility] and leaves regarding new referral. MUSSEL OPENER faxes order and clinicals for referral. MUSSEL OPENER to f/u with Hospice tomorrow regarding referral. Plan: patient to d/c to home this evening with family, [facility] to f/u with patient and family with new referral in place. Chula Arredondo, HOME HOSPICE RN
== END 2023-12-19 18:47 | disposition home or self-care (01) ==
PROVIDERS: Emergency Provider Emergency Medicine; PCP Family Medicine
DX: C18.9 Malignant neoplasm of colon, unspecified (principal); C79.9 Secondary malignant neoplasm of unspecified site; R07.9 Chest pain, unspecified
CPT/HCPCS: 36415; 70450; 70496; 70498; 80053; 81003; 81015; 82962; 83690; 85025; 93005; 96374; 99284; J1100